=== PATIENT | male | born 1935 | race Caucasian/White ===

== ENCOUNTER 2020-03-25 11:24 | Outpatient (REF) | payer MEDICARE, SELFPAY | END 2020-03-25 11:25 | disposition home or self-care (01) | LOC: HO.LAB 11:24 | PROVIDERS: PCP Internal Medicine Geriatric Medicine; Visit Provider Internal Medicine | DX: Z20.828 Contact with and (suspected) exposure to other viral communicable diseases (principal) | CPT/HCPCS: C9803; U0003 ==

== ENCOUNTER 2020-03-25 11:50 | Outpatient (REF) | payer MEDICARE, SELFPAY ==
[2020-03-26 10:52] LABS: Free Prostate Spec Ag 4.8 ng/mL; Percent Free Prostate Spec Ag NOT CALCULATED % (calc) (>25); Prostate Specific Ag Total 13.3 ng/mL (< OR = 4.0)
== END 2020-03-25 11:51 | disposition home or self-care (01) ==
LOC: HO.LAB 11:50
PROVIDERS: Visit Provider Urology
DX: R97.20 Elevated prostate specific antigen [PSA] (principal); Z12.5 Encounter for screening for malignant neoplasm of prostate
CPT/HCPCS: 84153

== ENCOUNTER 2020-04-03 14:01 | Inpatient (IN) | payer MEDICARE, SELFPAY ==
[2020-04-03 14:12] VITALS: BP 138/96; PULSE 110; PULSE 116; RESP 18; TEMP 38.4; O2SAT 97; BMI 22.0
--- NOTE | 2020-04-03 14:19 | ED_ITS ---
HPI - Weakness General Chief complaint: Upper Respiratory Symptoms Stated complaint: flu like +covid last week Time Seen by Provider: 04/03/20 14:19 Source: patient, family (called daughter who gave most of the information) and EMS Mode of arrival: EMS Limitations: altered mental status History of Present Illness MD Complaint: generalized weakness Onset (ago): week(s) (10 days) Duration: progressively worsening Location: generalized Severity: moderate Quality: dull Relieving factors: none Exacerbating factors: movement Context: recent illness (dx with COVID 03/25 whole family has it - worsening weakness cannot take care of himself at home) Associated symptoms: confusion, fever/chills, loss of appetite and myalgias Related Data Home Medications Medication Instructions Recorded Confirmed allopurinol 300 mg PO DAILY 04/03/20 04/03/20 aspirin 81 mg PO DAILY 04/03/20 04/03/20 atorvastatin 40 mg PO BEDTIME 04/03/20 04/03/20 hydrochlorothiazide 12.5 mg PO DAILY 04/03/20 04/03/20 levothyroxine 50 mcg PO DAILY 04/03/20 04/03/20 loratadine 10 mg PO DAILY 04/03/20 04/03/20 metoprolol tartrate 25 mg PO BID 04/03/20 04/03/20 nortriptyline 10 mg PO DAILY 04/03/20 04/03/20 tamsulosin 0.4 mg PO BEDTIME 04/03/20 04/03/20 trazodone 25 mg PO BEDTIME 04/03/20 04/03/20 Allergies Allergy/AdvReac Type Severity Reaction Status Date / Time No Known Allergies Allergy Mild NONE Unverified 02/06/20 17:04 Review of Systems Review of Systems: ROS unable to be obtained due to altered mental status REPLACED BY [facility] Past Medical History Attestation statement: The following information was validated with the patient. Medical History (Updated 04/03/20 @ 16:22 by Alexus Alejo DO) BPH (benign prostatic hyperplasia) Coronary artery disease CVA (cerebral vascular accident) Dementia Diabetes Gout HTN (hypertension) Hypothyroidism Surgical History (Updated 04/03/20 @ 14:24 by Alexus Alejo DO) Hx of CABG Social History Social History (Updated 04/03/20 @ 14:21 by Alexus Alejo DO) Smoking Status: Never smoker Use of substances other than those prescribed or required for medical reasons: No Advance Directives: No Advance Directives Information Provided: Yes Physical Exam Vital Signs: Vital Signs: Last Vital Signs Temp 101.2 F H 04/03/20 14:12 Pulse 116 H 04/03/20 14:12 Resp 18 04/03/20 14:12 Pulse Ox 97 04/03/20 14:12 Body Mass Index 22.0 Appearance: Alert. Oriented X2. No acute distress. Eyes: Pupils equal, round and reactive to light. ENT: Pharynx moderate dry MMM Neck: Normal inspection. Neck supple. CVS: Normal heart rate and rhythm. Pulses normal. Respiratory: No respiratory distress. Breath sounds decreased Abdomen: Soft and nontender. Skin: Skin warm and dry. Normal skin color. Normal skin turgor. Extremities: No lower extremity edema. No calf ttp Neuro: Oriented X 2. No motor deficit. No sensory deficit. Course Course Course Narrative: will need hydration, observation, repeat labs and admission given FTT and weakness due to COVID MDM - Weakness MDM Narrative Medical decision making narrative: 85 yo male with hx of dementia, HTN, arthritis here with COVID dx 03/25 but progressively worsening with persistent fevers the patient cannot take care of himself, he was near syncopal today per donny arredondo - will need labs, CXR, IVF, cultures, dispo per results and findings. Lab Data Result diagrams: 04/03/20 15:05 04/03/20 15:05 Labs: Lab Results 04/03/20 04/03/20 04/03/20 Range/Units 15:05 15:05 15:05 WBC 6.9 (4.8-10.8) X10*3/uL RBC 4.60 (4.60-5.80) X10*6/uL Hgb 14.1 (14.0-18.0) g/dl Hct 44.0 (42-52) % MCV 95.7 (80-98) fL MCH 30.7 (27.0-33.0) pg MCHC 32.0 (31.0-36.0) g/dl RDW 14.1 (11.0-16.0) % Plt Count 172 (160-400) X10*3/uL MPV 11.7 (9.4-12.4) fL Immature Gran % (Auto) 0.4 (0.0-0.4) % Neut % (Auto) 81.8 H (45-73) % Lymph % (Auto) 10.0 L (20-40) % [place] % (Auto) 7.4 (2-11) % Eos % (Auto) 0.3 (0-4) % Baso % (Auto) 0.1 (0-2) % Lymph # (Auto) 0.7 L (1.2-4.9) X10*3/uL [place] # (Auto) 0.5 (0.1-1.2) X10*3/uL Eos # (Auto) 0.0 (0.0-0.4) X10*3/uL Baso # (Auto) 0.0 (0.0-0.2) X10*3/uL Abs Immat Gran (auto) 0.03 (0.00-0.03) X10*3/uL Absolute Neuts (auto) 5.7 (2.0-8.3) X10*3/uL Absolute Nucleated RBC 0.000 (0.0-0.012) X10*3/uL Nucleated RBC % (auto) 0.0 (0.0-0.2) /100WBC Smear Tech's Comments VERIFIED PT 12.8 (10.8-13.0) SEC INR 1.1 (0.9-1.1) APTT 32.4 (24.1-38.0) SEC Sodium 139 (135-145) mmol/L Potassium 3.9 (3.3-5.1) mmol/l Chloride 98 (96-108) mmol/L Carbon Dioxide 29 (22-29) mmol/L Anion Gap 16 (12-20) BUN 24 H (9-16) mg/dL Creatinine 1.54 H (0.5-1.4) mg/dL Estim Creat Clear Calc 30.3 Estimated GFR 43 Random Glucose 163 H (60-115) mg/dL Lactic Acid (0.5-2.0) mmol/L Calcium 9.3 (8.4-10.2) mg/dL Magnesium 1.5 L (1.6-2.6) mg/dL Ferritin 1028 H (20-250) ng/mL Total Bilirubin 0.7 (0.0-1.0) mg/dL Direct Bilirubin 0.3 (0.0-0.5) mg/dL AST 63 H (5-37) U/L ALT 36 (0-40) U/L Alkaline Phosphatase 89 (39-117) U/L Lactate Dehydrogenase 228 (118-273) U/L Total Creatine Kinase 62 (38-174) U/L Troponin I High Sens (<3.5-35.0) ng/L B-Natriuretic Peptide (<100) pg/mL Total Protein 7.1 (6.5-8.0) g/dL Albumin 3.7 (3.5-5.0) g/dL Lipase 56 (8-78) U/L 04/03/20 04/03/20 Range/Units 15:05 15:05 WBC (4.8-10.8) X10*3/uL RBC (4.60-5.80) X10*6/uL Hgb (14.0-18.0) g/dl Hct (42-52) % MCV (80-98) fL MCH (27.0-33.0) pg MCHC (31.0-36.0) g/dl RDW (11.0-16.0) % Plt Count (160-400) X10*3/uL MPV (9.4-12.4) fL Immature Gran % (Auto) (0.0-0.4) % Neut % (Auto) (45-73) % Lymph % (Auto) (20-40) % [place] % (Auto) (2-11) % Eos % (Auto) (0-4) % Baso % (Auto) (0-2) % Lymph # (Auto) (1.2-4.9) X10*3/uL [place] # (Auto) (0.1-1.2) X10*3/uL Eos # (Auto) (0.0-0.4) X10*3/uL Baso # (Auto) (0.0-0.2) X10*3/uL Abs Immat Gran (auto) (0.00-0.03) X10*3/uL Absolute Neuts (auto) (2.0-8.3) X10*3/uL Absolute Nucleated RBC (0.0-0.012) X10*3/uL Nucleated RBC % (auto) (0.0-0.2) /100WBC Smear Tech's Comments PT (10.8-13.0) SEC INR (0.9-1.1) APTT (24.1-38.0) SEC Sodium (135-145) mmol/L Potassium (3.3-5.1) mmol/l Chloride (96-108) mmol/L Carbon Dioxide (22-29) mmol/L Anion Gap (12-20) BUN (9-16) mg/dL Creatinine (0.5-1.4) mg/dL Estim Creat Clear Calc Estimated GFR Random Glucose (60-115) mg/dL Lactic Acid 3.1 H* (0.5-2.0) mmol/L Calcium (8.4-10.2) mg/dL Magnesium (1.6-2.6) mg/dL Ferritin (20-250) ng/mL Total Bilirubin (0.0-1.0) mg/dL Direct Bilirubin (0.0-0.5) mg/dL AST (5-37) U/L ALT (0-40) U/L Alkaline Phosphatase (39-117) U/L Lactate Dehydrogenase (118-273) U/L Total Creatine Kinase (38-174) U/L Troponin I High Sens 23.3 (<3.5-35.0) ng/L B-Natriuretic Peptide 27 (<100) pg/mL Total Protein (6.5-8.0) g/dL Albumin (3.5-5.0) g/dL Lipase (8-78) U/L Discharge Plan Discharge Clinical Impression: COVID-19, Acidosis, lactic, Fever, Adult failure to thrive, STAR (acute kidney injury) Patient Disposition: Admitted As Inpatient Prescriptions: No Action atorvastatin 40 mg Tablet 40 mg PO BEDTIME RF: 0 trazodone 50 mg Tablet 25 mg PO BEDTIME RF: 0 tamsulosin 0.4 mg Capsule 0.4 mg PO BEDTIME RF: 0 levothyroxine 50 mcg Tablet 50 mcg PO DAILY RF: 0 nortriptyline 10 mg Capsule 10 mg PO DAILY RF: 0 allopurinol 300 mg Tablet 300 mg PO DAILY RF: 0 aspirin 81 mg Tablet 81 mg PO DAILY RF: 0 loratadine 10 mg Tablet 10 mg PO DAILY RF: 0 metoprolol tartrate 25 mg Tablet 25 mg PO BID RF: 0 hydrochlorothiazide 12.5 mg Tablet 12.5 mg PO DAILY RF: 0
--- NOTE | 2020-04-03 14:25 | ECG_ITS ---
Test Reason : COVID Blood Pressure : / mmHG Vent. Rate : 063 BPM Atrial Rate : 063 BPM P-R Int : 134 ms QRS Dur : 074 ms QT Int : 392 ms P-R-T Axes : 056 082 093 degrees QTc Int : 401 ms Normal sinus rhythm with Sinus Arrhythmia Nonspecific ST abnormality Inferior leads Abnormal ECG When compared with ECG of 03-JUL-2017 13:24, Sinus Arrhythmia is new Nonspecific ST abnormality is new Referred By: Alexus Alejo Electronically Signed By:KY CHARLES MD
--- NOTE | 2020-04-03 14:25 | XR_ITS ---
EXAMINATION: XR CHEST CLINICAL INFORMATION: Weakness COMPARISON: None TECHNIQUE: Frontal view of the chest was obtained. FINDINGS: Cardiac leads overlie the chest. Median sternotomy wires appear intact. The lungs are well expanded. Minimal markings are seen at both lung bases favoring atelectasis. No dense consolidation. No pleural effusion or pneumothorax. The cardiomediastinal silhouette is normal in size, with a calcified aorta. XR/XR chest 1V IMPRESSION: Bibasilar markings favor atelectasis. No consolidation.
[2020-04-03] MEDS: 0.9 % Sodium Chloride 500 ML IV (15:01)
[2020-04-03 15:28] LABS: Basophils Percent Auto 0.1 % (0-2); Eosinophils Percent Auto 0.3 % (0-4); Hemoglobin 14.1 g/dl (14.0-18.0); Imm Gran Abs Auto 0.03 X10*3/uL (0.00-0.03); Imm Gran Pct Auto 0.4 % (0.0-0.4); Lymphocytes Absolute Auto 0.7 X10*3/uL (1.2-4.9); MANUAL DIFF FLAG SCAN; Mean Corpuscular Hemoglobin 30.7 pg (27.0-33.0); Mean Corpuscular Volume 95.7 fL (80-98); Mean Platelet Volume 11.7 fL (9.4-12.4); Monocytes Absolute Auto 0.5 X10*3/uL (0.1-1.2); Monocytes Percent Auto 7.4 % (2-11); Neutrophils Absolute Auto 5.7 X10*3/uL (2.0-8.3); Neutrophils Percent Auto 81.8 % (45-73); Platelet Count 172 X10*3/uL (160-400); Red Cell Distribution Width 14.1 % (11.0-16.0); SCAN SMEAR FLAG 1; White Blood Count 6.9 X10*3/uL (4.8-10.8)
[2020-04-03 15:36] LABS: INTERNATIONAL NORM RATIO 1.1 (0.9-1.1); Prothrombin Time 12.8 SEC (10.8-13.0)
[2020-04-03 15:38] LABS: Partial Thromboplastin Time 32.4 SEC (24.1-38.0)
[2020-04-03 15:54] LABS: Alanine Aminotransferase 36 U/L (0-40); Albumin Level 3.7 g/dL (3.5-5.0); Alkaline Phosphatase 89 U/L (39-117); Anion Gap 16 (12-20); Aspartate Amino Transferase 63 U/L (5-37); Bilirubin Direct 0.3 mg/dL (0.0-0.5); Bilirubin Total 0.7 mg/dL (0.0-1.0); Blood Urea Nitrogen 24 mg/dL (9-16); Calcium 9.3 mg/dL (8.4-10.2); Carbon Dioxide 29 mmol/L (22-29); Chloride 98 mmol/L (96-108); Creatinine Clr Calc Pharmacy 30.3; Estimated Glomerular Filt Rate 43; Glucose Random 163 mg/dL (60-115); Lactate Dehydrogenase 228 U/L (118-273); Lipase 56 U/L (8-78); Magnesium 1.5 mg/dL (1.6-2.6); Potassium 3.9 mmol/l (3.3-5.1); Sodium 139 mmol/L (135-145); Total Protein 7.1 g/dL (6.5-8.0)
[2020-04-03 15:57] LABS: B Type Natriuretic Peptide 27 pg/mL (<100); Troponin-I High Sensitivity 23.3 ng/L (<3.5-35.0)
[2020-04-03 15:58] LABS: Lactic Acid 3.1 mmol/L (0.5-2.0); SLIDE REVIEW VERIFIED
[2020-04-03 16:15] LABS: Ferritin 1028 ng/mL (20-250)
[2020-04-03] MEDS: Acetaminophen Oral Liquid 650 MG/20.3 ML SOLUTION PO (16:21)
[2020-04-03] MEDS: ondansetron HCL 4 MG/2 ML VIAL IVPUSH (16:21)
[2020-04-03] MEDS: Magnesium Sulfate/H2O 2 GM/50 ML PIGGYBACK IV (16:21)
[2020-04-03] MEDS: cefTRIAXone sodium 1 GM in 0.9 % Sodium Chloride 50 ML IV (16:31)
--- NOTE | 2020-04-03 16:48 | P.EN_ITS ---
Event Note Date of Service: 04/04/20 Event Note: 85-year-old gentleman with past medical history of hypothyroidism hyperlipidemia BPH presented to [facility] due to persistent fevers decreased by mouth intake patient recently diagnosed to have COVID on 03/25 on examination patient is awake alert frail appearing withl decrease skin turgor admit diagnosis COVID 19 infection, lactic acidosis viral sepsis and adult failure to thrive agree with treatment plan as per APC
--- NOTE | 2020-04-03 17:00 | PM.IMHP ---
History of Present Illness Date of Service: 04/03/20 Chief Complaint: near-syncope, fever this is an 85-year-old Tongan-speaking male who was sent in by his daughter due to episode of near syncope earlier today. He was diagnosed with coronavirus on March 25. Since that time he has had decreased p.o. intake. He continues to have fevers. The patient himself was unable to provide any significant history. In the ED he was noted to be tachycardic and febrile with a temperature of 101.2 degrees. He was not hypoxic and did not require supplemental oxygen. 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 Review of Systems Review of Systems: Yes Unobtainable due to mental condition (dementia) [facility] Medical History BPH (benign prostatic hyperplasia) Coronary artery disease CVA (cerebral vascular accident) Dementia Diabetes Gout HTN (hypertension) Hypothyroidism Pertinent family history: Unable to obtain due to underlying dementia Surgical History Hx of CABG Social History Smoking Status: Never smoker Use of substances other than those prescribed or required for medical reasons: No Advance Directives: No Advance Directives Information Provided: Yes Meds Allergies Allergy/AdvReac Type Severity Reaction Status Date / Time No Known Allergies Allergy Mild NONE Unverified 02/06/20 17:04 Home Medications Medication Instructions Recorded Confirmed Type allopurinol 300 mg PO DAILY 04/03/20 04/03/20 History aspirin 81 mg PO DAILY 04/03/20 04/03/20 History atorvastatin 40 mg PO BEDTIME 04/03/20 04/03/20 History hydrochlorothiazide 12.5 mg PO DAILY 04/03/20 04/03/20 History levothyroxine 50 mcg PO DAILY 04/03/20 04/03/20 History loratadine 10 mg PO DAILY 04/03/20 04/03/20 History metoprolol tartrate 25 mg PO BID 04/03/20 04/03/20 History nortriptyline 10 mg PO DAILY 04/03/20 04/03/20 History tamsulosin 0.4 mg PO BEDTIME 04/03/20 04/03/20 History trazodone 25 mg PO BEDTIME 04/03/20 04/03/20 History Physical Exam Vital Signs and Narrative: Vital Signs: Last Vital Signs Temp 101.2 F H 04/03/20 14:12 Pulse 116 H 04/03/20 14:12 Resp 18 04/03/20 14:12 Pulse Ox 97 04/03/20 14:12 Body Mass Index 22.0 Const: General: alert and awake Nutritional Appearance: cachectic Orientation/consciousness: oriented to person HENMT: Head: Yes normocephalic and Yes atraumatic Eyes: Sclerae: sclerae normal Chest: Chest palpation & inspection: normal inspection of the chest Resp: Effort & Inspection: normal respiratory effort and no respiratory distress Cardio: Rate: regular rate Rhythm: regular rhythm GI: Palpation (GI): Soft to palpation and nontender Skin: General skin exam: no rashes or lesions noted Neuro: General: oriented to person Cranial nerves: Yes CN's II-XII intact bilaterally and Yes Bilaterally intact EOM present Extrem: General: Yes normal to inspection Results Labs CBC and Chem 7: 04/03/20 15:05 04/03/20 15:05 Labs: Laboratory Results - last 24 hr 04/03/20 04/03/20 04/03/20 15:05 15:05 15:05 MCV 95.7 MCH 30.7 MCHC 32.0 RDW 14.1 Plt Count 172 MPV 11.7 Immature Gran % (Auto) 0.4 Neut % (Auto) 81.8 H Lymph % (Auto) 10.0 L [place] % (Auto) 7.4 Eos % (Auto) 0.3 Baso % (Auto) 0.1 Lymph # (Auto) 0.7 L [place] # (Auto) 0.5 Eos # (Auto) 0.0 Baso # (Auto) 0.0 Abs Immat Gran (auto) 0.03 Absolute Neuts (auto) 5.7 Absolute Nucleated RBC 0.000 Nucleated RBC % (auto) 0.0 Smear Tech's Comments VERIFIED PT 12.8 INR 1.1 APTT 32.4 Anion Gap 16 Estim Creat Clear Calc 30.3 Estimated GFR 43 Random Glucose 163 H Lactic Acid Calcium 9.3 Magnesium 1.5 L Ferritin 1028 H Total Bilirubin 0.7 Direct Bilirubin 0.3 AST 63 H ALT 36 Alkaline Phosphatase 89 Lactate Dehydrogenase 228 Total Creatine Kinase 62 Troponin I High Sens B-Natriuretic Peptide Total Protein 7.1 Albumin 3.7 Lipase 56 04/03/20 04/03/20 15:05 15:05 MCV MCH MCHC RDW Plt Count MPV Immature Gran % (Auto) Neut % (Auto) Lymph % (Auto) [place] % (Auto) Eos % (Auto) Baso % (Auto) Lymph # (Auto) [place] # (Auto) Eos # (Auto) Baso # (Auto) Abs Immat Gran (auto) Absolute Neuts (auto) Absolute Nucleated RBC Nucleated RBC % (auto) Smear Tech's Comments PT INR APTT Anion Gap Estim Creat Clear Calc Estimated GFR Random Glucose Lactic Acid 3.1 H* Calcium Magnesium Ferritin Total Bilirubin Direct Bilirubin AST ALT Alkaline Phosphatase Lactate Dehydrogenase Total Creatine Kinase Troponin I High Sens 23.3 B-Natriuretic Peptide 27 Total Protein Albumin Lipase Imaging Radiologist's Impressions: Impressions Chest X-Ray 04/03/20 14:25 IMPRESSION: Bibasilar markings favor atelectasis. No consolidation. Assessment and Plan (1) COVID-19: Status: Acute (2) Acidosis, lactic: Status: Acute this is a an 85-year-old male with history of CAD, hypertension, dyslipidemia, hypothyroidism, remote history of intracranial hemorrhage, diagnosed with COVID-19 on 03/25 who presents to ED with near-syncope and decreased p.o. intake viral sepsis meets criteria with fever, tachycardia related to coronavirus focused exam completed blood cultures pending no indication for antibiotics COVID-19 chest x-ray negative for pneumonia not requiring supplemental oxygen supportive care elevated lactic acid likely related to dehydration gentle IV fluid CKD4 slight increase from baseline creatinine 1.3-1.54 hold hydrochlorothiazide IV fluid follow renal function hypo magnesemia replaced in the ED follow levels thyroid disease continue Synthroid hypertension who continue metoprolol , hold hydrochlorothiazide BPH continue tamsulosin dyslipidemia continue statin DVT prophylaxis- Loveno x code status- full code this case was discussed with
[2020-04-03 17:20] LABS: Reflex Lactate? Lactic Acid Added
[2020-04-03 18:18] LABS: ~Lactic Acid-LAB USE ONLY 1.1 mmol/L (0.5-2.0)
[2020-04-03 21:05] VITALS: BP 117/57; PULSE 64; RESP 17; TEMP 36.7; O2SAT 98
[2020-04-03] MEDS: Enoxaparin Sodium 40 MG/0.4 ML SYRINGE SUBCUT (21:15)
[2020-04-03] MEDS: Dextrose 5 % and 0.9 % NaCl 1,000 ML 50 ML IVCONT (21:17)
[2020-04-03 22:31] VITALS: BP 179/71; PULSE 79; PULSE 83; RESP 18; TEMP 37.7; O2SAT 97
[2020-04-03] MEDS: Atorvastatin Calcium 40 MG TABLET PO (22:31)
[2020-04-03] MEDS: Tamsulosin HCL 0.4 MG CAPSULE PO (22:31)
[2020-04-03] MEDS: Metoprolol Tartrate 25 MG TABLET PO (22:31)
[2020-04-03 23:16] LABS: Glucose, Whole Blood 113 mg/dL (60-115)
[2020-04-03 23:50] VITALS: BP 135/63; PULSE 67; RESP 18; TEMP 37.2; O2SAT 98
[2020-04-03 23:55] VITALS: BP 135/63; PULSE 67; RESP 18; TEMP 37.2; O2SAT 98
[2020-04-04] MEDS: 0.9 % Sodium Chloride Flush 3 ML SYRINGE IVFLUSH ×2 (00:45→09:44)
[2020-04-04 04:00] VITALS: BP 119/56; PULSE 67; RESP 18; TEMP 37.8; O2SAT 97
[2020-04-04] MEDS: Acetaminophen 325 MG TABLET 650 MG PO (04:30)
[2020-04-04 05:31] LABS: MANUAL DIFF FLAG NO
[2020-04-04 05:32] VITALS: TEMP 37.1
[2020-04-04] MEDS: Levothyroxine Sodium 50 MCG TABLET PO (05:34)
[2020-04-04 05:37] LABS: Basophils Percent Auto 0.2 % (0-2); Eosinophils Percent Auto 0.4 % (0-4); Hematocrit 36.9 % (42-52); Hemoglobin 11.9 g/dl (14.0-18.0); Imm Gran Abs Auto 0.02 X10*3/uL (0.00-0.03); Imm Gran Pct Auto 0.4 % (0.0-0.4); Lymphocytes Percent Auto 18.9 % (20-40); Mean Corpuscular HGB Conc 32.2 g/dl (31.0-36.0); Mean Corpuscular Hemoglobin 30.4 pg (27.0-33.0); Mean Corpuscular Volume 94.4 fL (80-98); Mean Platelet Volume 11.2 fL (9.4-12.4); Monocytes Absolute Auto 0.5 X10*3/uL (0.1-1.2); Monocytes Percent Auto 10.3 % (2-11); Neutrophils Absolute Auto 3.7 X10*3/uL (2.0-8.3); Neutrophils Percent Auto 69.8 % (45-73); Platelet Count 163 X10*3/uL (160-400); Red Blood Count 3.91 X10*6/uL (4.60-5.80); Red Cell Distribution Width 13.9 % (11.0-16.0); White Blood Count 5.2 X10*3/uL (4.8-10.8)
[2020-04-04 06:02] LABS: Magnesium 2.1 mg/dL (1.6-2.6)
[2020-04-04 06:09] LABS: Anion Gap 10 (12-20); Blood Urea Nitrogen 24 mg/dL (9-16); Calcium 8.4 mg/dL (8.4-10.2); Carbon Dioxide 29 mmol/L (22-29); Chloride 102 mmol/L (96-108); Creatinine Clr Calc Pharmacy 39.2; Estimated Glomerular Filt Rate 58; Glucose Random 136 mg/dL (60-115); Potassium 3.9 mmol/l (3.3-5.1); Sodium 137 mmol/L (135-145)
[2020-04-04 08:00] VITALS: BP 126/59; PULSE 69; RESP 18; TEMP 36.3; O2SAT 97
[2020-04-04 08:09] LABS: Glucose, Whole Blood 126 mg/dL (60-115)
[2020-04-04 09:44] VITALS: BP 126/59; PULSE 64
[2020-04-04] MEDS: Aspirin 81 MG TAB.CHEW PO (09:44)
[2020-04-04 11:35] VITALS: BP 117/58; PULSE 62; RESP 18; TEMP 36.6; O2SAT 97
[2020-04-04 12:10] LABS: Glucose, Whole Blood 208 mg/dL (60-115)
--- NOTE | 2020-04-04 16:15 | PM.DS ---
DS: Providers Provider Date of admission: 04/03/20 16:46 Primary care physician: Unknown Physician DS: Diagnosis Discharge Diagnosis (1) COVID-19: Status: Acute (2) Acidosis, lactic: Status: Acute DS: Medications Discharge Medications Home Medications: Home Medications Medication Instructions Recorded Confirmed allopurinol 300 mg PO DAILY 04/03/20 04/03/20 aspirin 81 mg PO DAILY 04/03/20 04/03/20 levothyroxine 50 mcg PO DAILY 04/03/20 04/03/20 loratadine 10 mg PO DAILY 04/03/20 04/03/20 metoprolol tartrate 25 mg PO BID 04/03/20 04/03/20 nortriptyline 10 mg PO DAILY 04/03/20 04/03/20 tamsulosin 0.4 mg PO BEDTIME 04/03/20 04/03/20 trazodone 25 mg PO BEDTIME 04/03/20 04/03/20 DS: Summary Hospital Course Hospital Course: Chief Complaint: near-syncope, fever this is an 85-year-old Latvian-speaking male who was sent in by his daughter due to episode of near syncope earlier today. He was diagnosed with coronavirus on March 25. Since that time he has had decreased p.o. intake. He continues to have fevers. The patient himself was unable to provide any significant history. In the ED he was noted to be tachycardic and febrile with a temperature of 101.2 degrees. He was not hypoxic and did not require supplemental oxygen. 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 hospital course this is a an 85-year-old male with history of CAD, hypertension, dyslipidemia, hypothyroidism, remote history of intracranial hemorrhage, diagnosed with COVID-19 on 03/25 who presents to ED with near-syncope and decreased p.o. intake viral sepsis met criteria of sepsis with fever, tachycardia related to coronavirus blood cultures came back negative, symptoms of sepsis have resolved, no indication for antibiotics since patient hemodynamically stable he is being discharged home COVID-19 chest x-ray negative for pneumonia, not requiring supplemental oxygen recommend isolation at home elevated lactic acid likely related to dehydration resolved with IV hydration CKD4 slight increase from baseline creatinine 1.3-1.54, improved with IV hydration, blood pressure is stable will discontinue hydrochlorothiazide hypo magnesemia replaced thyroid disease continue Synthroid hypertension continue metoprolol and stop using hydrochlorothiazide BPH continue tamsulosin dyslipidemia stop Lipitor since noted to have low LDL in last few lipid profile studies Time Spent with Patient Time attestation: Total time spent providing and/or coordinating discharge services: Physical Exam Vital Signs: Vital Signs: Last Vital Signs Temp 97.9 F 04/04/20 11:35 Pulse 62 04/04/20 11:35 Resp 18 04/04/20 11:35 BP 117/58 L 04/04/20 11:35 Pulse Ox 97 04/04/20 11:35 Body Mass Index 22.0 General patient resting comfortably in no acute distress. Neck is supple no JVD. CVS regular rate rhythm, Respiratory lungs clear to auscultation, no respiratory distress, no wheeze, no rhonchi. Gastrointestinal abdomen soft, nontender, bowel sounds audible, no no guarding , no rigidity. Extremities no clubbing cyanosis or edema. Neuro nonfocal patient moving all 4 extremity speech clear. Skin no rash DS: Data Data Completed and Pending Labs on day of discharge: 04/03/20 14:24 ondansetron HCL [Zofran] 4 mg IVPUSH ONCE ONE 04/03/20 14:25 ECG 12 lead EKG Stat EKG Documentation DIRECTED XR chest 1V Stat Acetaminophen Oral Liquid [Tylenol Oral Liquid] 650 mg PO ONCE ONE 04/03/20 14:29 cefTRIAXone sodium [Rocephin] 1 gm 0.9 % Sodium Chloride [Ns] 50 ml IV ONCE 04/03/20 14:30 0.9 % Sodium Chloride [Ns] 500 ml IV 500 mls/hr 04/03/20 15:05 B Type Natriuretic Peptide Stat Basic Metabolic Panel Stat Complete Blood Count Auto Diff Stat Creatine Kinase Total Stat Ferritin Stat Lactate Dehydrogenase Stat Lactic Acid Stat Lipase Stat Liver Panel Stat Magnesium Stat Partial Thromboplastin Time Stat Prothrombin Time INR Stat SLIDE REVIEW Stat Troponin-I High Sensitivity Stat 04/03/20 15:58 Magnesium Sulfate/H2O 2 gm in 50 ml IV ONCE 04/03/20 16:00 Consult Rx Perform Med Rec 1 each MISCELLANE ONCE PRN 04/03/20 16:06 cefTRIAXone sodium [Rocephin] 1 gm .ROUTE .STK-MED ONE 04/03/20 16:36 Transfer Order Routine 04/03/20 16:37 Code Status Routine 04/03/20 17:49 ~Lactic Acid-LAB USE ONLY Stat 04/03/20 18:22 Acetaminophen [Tylenol] 650 mg PO Q6H PRN Dextrose 5 % and 0.9 % NaCl [D5ns] 1,000 ml IVCONT 50 mls/hr ondansetron HCL [Zofran] 4 mg IVPUSH Q8H PRN 04/03/20 18:22 Ambulate QSHIFT WHILE AWAKE Cont. Telemetry w/Vital Sign limit Q4HR IV insert/maintain Q4HR Intake and Output QSHIFTE Oxygen administration Nasal Cannula 1 lpm Pulse Oximetry Q4HR Vital Signs Q4HR 04/03/20 20:00 Enoxaparin Sodium [Lovenox] 40 mg SUBCUT Q24H 04/03/20 21:00 Atorvastatin Calcium [Lipitor] 40 mg PO BEDTIME Metoprolol Tartrate [Lopressor] 25 mg PO BID Tamsulosin HCL [Flomax] 0.4 mg PO BEDTIME traZODone HCL [Desyrel] 25 mg PO BEDTIME 04/03/20 22:33 Glucose, Whole Blood Routine 04/04/20 00:00 0.9 % Sodium Chloride Flush [NS Flush] 3 ml IVFLUSH QSHIFT 04/04/20 05:23 Basic Metabolic Panel DAILY@0600 Complete Blood Count Auto Diff DAILY@0600 Magnesium Routine 04/04/20 06:30 Levothyroxine Sodium [Synthroid] 50 mcg PO DAILY@0630 04/04/20 08:06 Glucose, Whole Blood Routine 04/04/20 09:00 Aspirin 81 mg PO DAILY 04/04/20 11:34 Glucose, Whole Blood Routine Laboratory Last Values WBC 5.2 X10*3/uL (4.8-10.8) 04/04/20 05:23 RBC 3.91 X10*6/uL (4.60-5.80) L 04/04/20 05:23 Hgb 11.9 g/dl (14.0-18.0) L 04/04/20 05:23 Hct 36.9 % (42-52) L 04/04/20 05:23 MCV 94.4 fL (80-98) 04/04/20 05:23 MCH 30.4 pg (27.0-33.0) 04/04/20 05:23 MCHC 32.2 g/dl (31.0-36.0) 04/04/20 05:23 RDW 13.9 % (11.0-16.0) 04/04/20 05:23 Plt Count 163 X10*3/uL (160-400) 04/04/20 05:23 MPV 11.2 fL (9.4-12.4) 04/04/20 05:23 Immature Gran % (Auto) 0.4 % (0.0-0.4) 04/04/20 05:23 Neut % (Auto) 69.8 % (45-73) 04/04/20 05:23 Lymph % (Auto) 18.9 % (20-40) L 04/04/20 05:23 [place] % (Auto) 10.3 % (2-11) 04/04/20 05:23 Eos % (Auto) 0.4 % (0-4) 04/04/20 05:23 Baso % (Auto) 0.2 % (0-2) 04/04/20 05:23 Lymph # (Auto) 1.0 X10*3/uL (1.2-4.9) L 04/04/20 05:23 [place] # (Auto) 0.5 X10*3/uL (0.1-1.2) 04/04/20 05:23 Eos # (Auto) 0.0 X10*3/uL (0.0-0.4) 04/04/20 05:23 Baso # (Auto) 0.0 X10*3/uL (0.0-0.2) 04/04/20 05:23 Abs Immat Gran (auto) 0.02 X10*3/uL (0.00-0.03) 04/04/20 05:23 Absolute Neuts (auto) 3.7 X10*3/uL (2.0-8.3) 04/04/20 05:23 Absolute Nucleated RBC 0.000 X10*3/uL (0.0-0.012) 04/04/20 05:23 Nucleated RBC % (auto) 0.0 /100WBC (0.0-0.2) 04/04/20 05:23 Smear Tech's Comments VERIFIED 04/03/20 15:05 PT 12.8 SEC (10.8-13.0) 04/03/20 15:05 INR 1.1 (0.9-1.1) 04/03/20 15:05 APTT 32.4 SEC (24.1-38.0) 04/03/20 15:05 Sodium 137 mmol/L (135-145) 04/04/20 05:23 Potassium 3.9 mmol/l (3.3-5.1) 04/04/20 05:23 Chloride 102 mmol/L (96-108) 04/04/20 05:23 Carbon Dioxide 29 mmol/L (22-29) 04/04/20 05:23 Anion Gap 10 (12-20) L 04/04/20 05:23 BUN 24 mg/dL (9-16) H 04/04/20 05:23 Creatinine 1.19 mg/dL (0.5-1.4) 04/04/20 05:23 Estim Creat Clear Calc 39.2 04/04/20 05:23 Estimated GFR 58 04/04/20 05:23 POC Glucose 208 mg/dL (60-115) H 04/04/20 11:34 Random Glucose 136 mg/dL (60-115) H 04/04/20 05:23 Lactic Acid 3.1 mmol/L (0.5-2.0) H* 04/03/20 15:05 Lactic Acid Fup @ 2Hr 1.1 mmol/L (0.5-2.0) 04/03/20 17:49 Calcium 8.4 mg/dL (8.4-10.2) D 04/04/20 05:23 Magnesium 2.1 mg/dL (1.6-2.6) 04/04/20 05:23 Ferritin 1028 ng/mL (20-250) H 04/03/20 15:05 Total Bilirubin 0.7 mg/dL (0.0-1.0) 04/03/20 15:05 Direct Bilirubin 0.3 mg/dL (0.0-0.5) 04/03/20 15:05 AST 63 U/L (5-37) H 04/03/20 15:05 ALT 36 U/L (0-40) 04/03/20 15:05 Alkaline Phosphatase 89 U/L (39-117) 04/03/20 15:05 Lactate Dehydrogenase 228 U/L (118-273) 04/03/20 15:05 Total Creatine Kinase 62 U/L (38-174) 04/03/20 15:05 Troponin I High Sens 23.3 ng/L (<3.5-35.0) 04/03/20 15:05 B-Natriuretic Peptide 27 pg/mL (<100) 04/03/20 15:05 Total Protein 7.1 g/dL (6.5-8.0) 04/03/20 15:05 Albumin 3.7 g/dL (3.5-5.0) 04/03/20 15:05 Lipase 56 U/L (8-78) 04/03/20 15:05 Discharge Plan Discharge Patient Disposition: Home, Self-Care Referrals: Physician,Unknown [Primary Care Provider] - Discharge Medications: Continued trazodone 50 mg Tablet 25 mg PO BEDTIME RF: 0 tamsulosin 0.4 mg Capsule 0.4 mg PO BEDTIME RF: 0 levothyroxine 50 mcg Tablet 50 mcg PO DAILY RF: 0 nortriptyline 10 mg Capsule 10 mg PO DAILY RF: 0 allopurinol 300 mg Tablet 300 mg PO DAILY RF: 0 aspirin 81 mg Tablet 81 mg PO DAILY RF: 0 loratadine 10 mg Tablet 10 mg PO DAILY RF: 0 metoprolol tartrate 25 mg Tablet 25 mg PO BID RF: 0 Discontinued atorvastatin 40 mg Tablet 40 mg PO BEDTIME RF: 0 hydrochlorothiazide 12.5 mg Tablet 12.5 mg PO DAILY RF: 0 Discharge Orders: Discharge Order (Routine); Ordered 04/04/20 Ordered By: Kelley Heaton Diet: regular diet Activity on Discharge: As tolerated Discharge Date/Time: 04/04/20 15:28 Visit Report Forms: Patient Portal Discharge page Care Plan Goals: Stop Lipitor and hydrochlorothiazide, rest drink plenty of fluids Health Concerns: Continue medications as prescribed Plan of Treatment: follow-up with primary care physician.
--- NOTE | 2020-04-05 10:35 | MHC.CM.PN ---
Pt discharged on 04/04/20, prior to meeting with CM. CM spoke to pts daughter/PACKAGING SPECIALIST Tonia prior to pts discharge. Pt lives with her and she will be present when pt arrives home. Tonia was informed pts transport would be set up for 1400 hours. pt discharged home with no new services.
== END 2020-04-04 15:28 | disposition home or self-care (01) | DRG 178 ==
LOC: HO.ED 16:22 → HO.IMC 17:24
PROVIDERS: Admitting Provider Hospitalist; Emergency Provider Emergency Medicine; Visit Provider Hospitalist
DX: U07.1 COVID-19 (principal); N18.4 Chronic kidney disease, stage 4 (severe); N40.0 Benign prostatic hyperplasia without lower urinary tract symptoms; M10.9 Gout, unspecified; F03.90 Unspecified dementia, unspecified severity, without behavioral disturbance, psychotic disturbance, mood disturbance, and anxiety; E03.9 Hypothyroidism, unspecified; E78.5 Hyperlipidemia, unspecified; I12.9 Hypertensive chronic kidney disease with stage 1 through stage 4 chronic kidney disease, or unspecified chronic kidney disease; E83.42 Hypomagnesemia; Z86.73 Personal history of transient ischemic attack (TIA), and cerebral infarction without residual deficits; Z79.82 Long term (current) use of aspirin; Z79.890 Hormone replacement therapy; Z79.899 Other long term (current) drug therapy
CPT/HCPCS: 36415; 71045; 80048; 80076; 82550; 82728; 82947; 83605; 83615; 83690; 83735; 83880; 84484; 85025; 85610; 85730; 87040; 93005; 96361; 96365; 96367; 96375; 99285; J0696; J1650; J2405; J3475

== ENCOUNTER 2021-07-01 16:39 | Inpatient (IN) | payer MEDICARE, SELFPAY ==
--- NOTE | ~2021-07-01 | CT_ITS ---
EXAMINATION: CT ABDOMEN AND PELVIS WITHOUT CONTRAST CLINICAL INFORMATION: Projectile vomiting COMPARISON: 07/01/2021 TECHNIQUE: Multidetector volumetric imaging was performed from the superior aspect of the liver through the pubic symphysis. Sagittal and coronal reformatted images were obtained on the technologist's workstation. This CT examination was performed using dose optimization techniques as appropriate, variously including the following: *Automated exposure control *Adjustment of mA and/or kV according to patient size (this includes techniques or standardized protocols for targeted exams where dose is matched to indication/reason for exam; i.e. extremities or head) *Use of iterative reconstruction technique DLP: 659 mGy-cm FINDINGS: Limited assessment in some regions due to motion artifact. LUNG BASES: Dependent opacities noted in the lower lobes, increased from prior. LIVER, GALLBLADDER, AND BILIARY TREE: The liver is normal in size, shape, and attenuation. No focal hepatic lesion or biliary ductal dilatation is present. The gallbladder is unremarkable with no evidence of radiopaque gallstones, gallbladder wall thickening, or obvious pericholecystic inflammatory changes. PANCREAS: Partial fatty atrophy is noted. SPLEEN: Unremarkable. ADRENAL GLANDS: Unremarkable. KIDNEYS AND URETERS: Mildly dilated renal pelvises, similar to prior. There is redemonstration of several scattered calculi throughout both kidneys measuring up to approximately 5 mm in size. No ureteral calculus is seen. Redemonstrated small right renal cyst for which no follow-up is recommended. BLADDER: Partially distended. Multiple layering calcifications noted. Marino catheter is present. GASTROINTESTINAL TRACT: Percutaneous gastrostomy tube is present in the stomach. No convincing evidence of bowel obstruction. No appreciable colonic wall thickening. The appendix is unremarkable. There is nonspecific stranding in the lower pelvis anteriorly, similar to prior. No free fluid or free air is seen. ABDOMINAL WALL: No significant hernia is appreciated. LYMPH NODES: Normal. VASCULAR: There is atherosclerotic calcification along the aorta and iliac arteries. PELVIC VISCERA: The prostate gland is enlarged, measuring approximately 5.4 cm in transverse dimension. OSSEOUS STRUCTURES: Degenerative changes are noted in the spine. Subcutaneous stranding overlying the coccyx may reflect a decubitus ulcer. CT/CT abdomen pelvis wo con IMPRESSION: 1. Limited assessment of some regions due to motion artifact. 2. Dependent bibasilar pulmonary opacities which could reflect atelectasis versus consolidation such as from aspiration in the setting of vomiting. 3. Nonobstructive bowel gas pattern. 4. Distended urinary bladder, with Marino catheter in place. Correlation with catheter function is recommended. Renal pelvises are mildly dilated, which may be reactive in this setting. 5. Multiple bilateral renal calculi. Multiple layering calcifications in the urinary bladder 6. Nonspecific stranding in the lower pelvis anteriorly, similar to prior. 7. Subcutaneous stranding overlying the coccyx may reflect a decubitus ulcer. Fleischner guidelines were followed.
--- NOTE | ~2021-07-01 | XR_ITS ---
EXAMINATION: XR CHEST CLINICAL INFORMATION: Shortness of breath COMPARISON: Chest x-ray 04/03/2020 TECHNIQUE: Frontal portable view of the chest was obtained. 1710 hours FINDINGS: Status post median sternotomy. Heart size is normal. Vascular calcifications of thoracic aorta. No acute abnormality. No pulmonary vascular congestion. The lungs are normally aerated. No pleural effusion or pneumothorax. XR/XR chest 1V IMPRESSION: No acute abnormality of chest.
--- NOTE | ~2021-07-01 | XR_ITS ---
EXAMINATION: XR CHEST CLINICAL INFORMATION: Shortness of breath COMPARISON: July 01, 2021 and April 03, 2020 TECHNIQUE: AP portable view of the chest was obtained. FINDINGS: There is some chronic bibasilar interstitial disease present. There may be some superimposed acute disease present however no definite confluent pneumonitis is appreciated. No pneumothorax or pleural effusion is evident. Heart normal size. No evidence of pulmonary edema. Status post median sternotomy and CABG. XR/XR chest 1V IMPRESSION: Mild prominent bibasilar disease with question some superimposed interstitial disease at the bases versus atelectasis.
--- NOTE | ~2021-07-01 | XR_ITS ---
EXAMINATION: XR CHEST CLINICAL INFORMATION: Shortness of breath. COMPARISON: Chest done on 07/08/2021. TECHNIQUE: Frontal view of the chest was obtained. FINDINGS: Interval improved aeration at both lung bases since the prior study. No new abnormalities. The cardiomediastinal silhouette is within normal limits. Postop changes of sternotomy is noted. No evidence of any pleural effusion or pneumothorax. The visualized upper abdomen is unremarkable. XR/XR chest 1V IMPRESSION: Interval improved aeration at both lung bases without resolution. No new abnormalities.
--- NOTE | ~2021-07-01 | CT_ITS ---
EXAMINATION: CT ABDOMEN AND PELVIS WITHOUT CONTRAST CLINICAL INFORMATION: ? GANGRENE, ABD PAIN, DECUBITUS ULCER NEAR SCROTUM COMPARISON: Ultrasound abdomen 12/24/2015 TECHNIQUE: Multidetector volumetric imaging was performed from the superior aspect of the liver through the pubic symphysis. Sagittal and coronal reformatted images were obtained on the technologist's workstation. This CT examination was performed using dose optimization techniques as appropriate, variously including the following: *Automated exposure control *Adjustment of mA and/or kV according to patient size (this includes techniques or standardized protocols for targeted exams where dose is matched to indication/reason for exam; i.e. extremities or head) *Use of iterative reconstruction technique DLP: 663 mGy-cm FINDINGS: LUNG BASES: The visualized lung bases are unremarkable aside from bibasilar atelectasis. Coronary artery calcifications are present. LIVER, GALLBLADDER, AND BILIARY TREE: The liver is normal in size, shape, and attenuation. No focal hepatic lesion or biliary ductal dilatation is present. The gallbladder is unremarkable with no evidence of radiopaque gallstones, gallbladder wall thickening, or obvious pericholecystic inflammatory changes. PANCREAS: Unremarkable. SPLEEN: Unremarkable. ADRENAL GLANDS: Unremarkable. KIDNEYS AND URETERS: Both kidneys demonstrate pelvocaliectasis with dilatation of the ureters. However, the ureters can be followed to the level of the bladder no obstructing calculi are seen with certainty. Moderately extensive bilateral nephrolithiasis is present. The largest stone on the right is in the lower pole measuring 6 mm. The largest stone on the left is in the upper pole as well measuring 5 mm. BLADDER: Innumerable calculi are seen layering in the bladder. A Marino catheter is in place but the bladder still appears quite distended. Multiple small diverticula are present on the right side of the bladder which contain calculi. GASTROINTESTINAL TRACT: Rectal wall is thickened. No pneumatosis. No evidence of stercoral colitis. The small and large bowel are otherwise unremarkable. A rectal tube is in place. The appendix is unremarkable. Gastrostomy tube is in good position. ABDOMINAL WALL: No significant hernia is seen. There is skin thickening just above the sacrum on the left buttock which may be related to the patient's decubitus ulcer which is not clearly seen on the current study. LYMPH NODES: No retroperitoneal lymphadenopathy. VASCULAR: Calcific atherosclerotic changes present in the aorta and vessels without aneurysm. PELVIC VISCERA: Marked prostatic enlargement measuring 5.2 x 5.9 x 6.0 cm for a volume of between 96 and 120 cc. OSSEOUS STRUCTURES: Mild degenerative changes present in the spine. CT/CT abdomen pelvis wo con IMPRESSION: 1. The patient's decubitus ulcer is not well visualized. There is soft tissue thickening in the left buttock just below the coccyx. 2. Bilateral nephrolithiasis and collecting system dilatation without a definite obstructing stone. 3. Multiple bladder calculi. Calculi are also present in the bladder diverticula. A Marino catheter is in place but the bladder is still quite distended 4. Marked BPH 5. Mild rectal thickening but no obstruction. Fleischner guidelines were followed.
--- NOTE | ~2021-07-01 | XR_ITS ---
EXAMINATION: XR FOOT, LEFT CLINICAL INFORMATION: Ulcer COMPARISON: None TECHNIQUE: AP, lateral, and oblique views of the left foot. FINDINGS: The bones are osteopenic. No fracture or dislocation is seen. The joint spaces are normal. There is a dressing over the heel. There are small calcaneal spurs. No x-ray evidence of osteomyelitis is seen. XR/XR foot LT 2V IMPRESSION: Osteopenia. Calcaneal spurs. No x-ray evidence of osteomyelitis.
--- NOTE | ~2021-07-01 | CT_ITS ---
EXAMINATION: CT HEAD WITHOUT CONTRAST CLINICAL INFORMATION: Altered mental status COMPARISON: CT head 10/13/2019 TECHNIQUE: Contiguous axial imaging was performed from the skull base to vertex without intravenous administration of contrast. Coronal and sagittal reformatted images are performed at the CT scanner. [This CT examination was performed using dose optimization techniques as appropriate, variously including the following: *Automated exposure control *Adjustment of mA and/or kV according to patient size (this includes techniques or standardized protocols for targeted exams where dose is matched to indication/reason for exam; i.e. extremities or head) *Use of iterative reconstruction technique] DLP: 813 mGy-cm. FINDINGS: There is no evidence of acute intracranial hemorrhage or territorial infarction. No abnormal mass-effect or midline shift is seen. Acuña to white matter differentiation is well preserved. No extra-axial fluid collections are identified. There is generalized global volume loss. There is moderate prominence of the ventricles and the sulci . There is moderate hypodensity of the periventricular white matter due to chronic small vessel ischemic disease. There are vascular calcifications of the internal carotid arteries bilaterally. There is no osseous abnormality. The mastoid air cells and visualized portions of the paranasal sinuses are well-aerated. CT/CT head/brain wo con IMPRESSION: No acute intracranial pathology.
[2021-07-01 16:57] VITALS: BP 102/80; BP 98/54; PULSE 150; RESP 24; TEMP 40.1; O2SAT 98; BMI 22.4
--- NOTE | 2021-07-01 17:04 | ECG_ITS ---
Test Reason : CP Blood Pressure : / mmHG Vent. Rate : 148 BPM Atrial Rate : 148 BPM P-R Int : 116 ms QRS Dur : 074 ms QT Int : 266 ms P-R-T Axes : 061 060 077 degrees QTc Int : 417 ms Sinus tachycardia Otherwise normal ECG When compared with ECG of 03-APR-2020 21:15, Vent. rate has increased BY 85 BPM Nonspecific T wave abnormality no longer evident in Lateral leads Referred By: Divina Carrillo Electronically Signed By:Colt Mehta
[2021-07-01] MEDS: Acetaminophen Supp 650 MG SUPP.RECT PR (17:31)
[2021-07-01] MEDS: Piperacillin Sodium/Tazobactam 4.5 GM in 0.9 % Sodium Chloride 100 ML IV (17:32)
[2021-07-01] MEDS: vancomycin HCL 1,000 MG in 0.9 % Sodium Chloride 250 ML 270 MG IV (17:32)
[2021-07-01] MEDS: 0.9 % Sodium Chloride 1,000 ML 999 ML IV ×2 (17:33→20:42)
[2021-07-01 17:40] LABS: Basophils Percent Auto 0.1 % (0-2); Hematocrit 37.2 % (42.0-52.0); Hemoglobin 11.5 g/dl (14.0-18.0); Imm Gran Abs Auto 0.25 X10*3/uL (0.00-0.03); Imm Gran Pct Auto 1.1 % (0.0-0.4); Lymphocytes Absolute Auto 0.4 X10*3/uL (1.2-4.9); Lymphocytes Percent Auto 1.9 % (20-40); MANUAL DIFF FLAG SCAN; Mean Corpuscular HGB Conc 30.9 g/dl (31.0-36.0); Mean Corpuscular Hemoglobin 27.3 pg (27.0-33.0); Mean Corpuscular Volume 88.4 fL (80.0-98.0); Mean Platelet Volume 10.6 fL (9.4-12.4); Monocytes Absolute Auto 0.4 X10*3/uL (0.1-1.2); Monocytes Percent Auto 1.8 % (2-11); Neutrophils Absolute Auto 21.9 x10*3/uL (2.0-8.3); Neutrophils Percent Auto 95.1 % (45-73); Platelet Count 324 X10*3/uL (160-400); Red Blood Count 4.21 X10*6/uL (4.60-5.80); Red Cell Distribution Width 16.8 % (11.0-16.0); SCAN SMEAR FLAG 1
--- NOTE | 2021-07-01 17:43 | ED_ITS ---
HPI - General Adult General Chief complaint: General Medical Stated complaint: ?sepsis Time Seen by Provider: 07/01/21 16:53 History of Present Illness HPI narrative: Patient is an 86-year-old male with a history of dementia. Presented today with having generalized malaise weakness decreased p.o. intake increased respiratory rate. Patient's code status is unclear. Had a previous COVID-19 infection back in March. Family suggested patient is less responsive than usual. Per prev ious documentation patient is unable to give history is awake oriented times 0. Patient uses a G-tube. Baseline is contracted. Related Data Home Medications Medication Instructions Recorded Confirmed allopurinol 300 mg tablet 300 mg PO DAILY 04/03/20 07/01/21 aspirin 81 mg tablet 81 mg PO DAILY 04/03/20 07/01/21 metoprolol tartrate 25 mg tablet 25 mg PO BID 04/03/20 07/01/21 tamsulosin 0.4 mg capsule 0.4 mg PO BEDTIME 04/03/20 07/01/21 trazodone 50 mg tablet 25 mg PO BEDTIME 04/03/20 07/01/21 acetaminophen 500 mg tablet 500 mg PO Q8H PRN 07/01/21 07/01/21 amlodipine 2.5 mg tablet 1 tab PO DAILY 07/01/21 07/01/21 docusate sodium 100 mg capsule 1 cap PO BID 07/01/21 07/01/21 insulin lispro 100 unit/mL See Rx Instructions .ROUTE .COMPLEX 07/01/21 07/01/21 subcutaneous pen latanoprost 0.005 % eye drops 1 drp OPHTHALMIC (EYE) DAILY 07/01/21 07/01/21 levothyroxine 75 mcg tablet 1 tab PO DAILY 07/01/21 07/01/21 pantoprazole 40 mg tablet,delayed 1 tab PO DAILY 07/01/21 07/01/21 release thiamine HCl (vitamin B1) 100 mg 1 tab PO DAILY 07/01/21 07/01/21 tablet Allergies Allergy/AdvReac Type Severity Reaction Status Date / Time No Known Allergies Allergy Mild NONE Verified 04/03/20 23:07 Review of Systems Review of Systems: Unable to obtain review of systems secondary to patient's condition PMFSH Past Medical History Attestation statement: The following information was validated with the patient. Medical History BPH (benign prostatic hyperplasia) Coronary artery disease CVA (cerebral vascular accident) Dementia Diabetes Gout HTN (hypertension) Hypothyroidism Surgical History Hx of CABG Social History Social History Household Members: Family Housing: House Do you presently have visiting nurse or other home services: No Alcohol intake: never Advance Directives: No Advance Directives Information Provided: No Physical Exam Vital Signs: Vital Signs: Last Vital Signs Temp 100.6 F H 07/01/21 18:53 Pulse 118 H 07/01/21 18:53 Resp 22 H 07/01/21 18:53 BP 97/50 L 07/01/21 18:53 Pulse Ox 98 07/01/21 18:53 Oxygen Flow Rate 2 07/01/21 16:57 BMI result Body Mass Index 22.4 Appearance: Toxic appearing male cachectic contracted Eyes: Pupils equal, round and reactive to light. ENT: Pharynx normal. Dry mucous membrane Neck: Normal inspection. Neck supple. No lymph nodes noted. No crepitus CVS: Tachycardic but regular Respiratory diminished breath sounds bilaterally Abdomen: Soft nontender Skin: Contracted positive weakness to the genital area. Positive decubital ulcer down to subcutaneous tissue approximately 5 cm x 4 cm in size. Extremities: No lower extremity edema. Neurovascular intact to all extremities. No Lacerations. No Rash Neuro: Oriented times 0 contracted Medical Decision Making MDM Narrative Medical decision making narrative: Patient grossly appear septic. Elevated temperature 104.1 degrees. Had tachycardia increased respiratory rate. Culture obtained immediately. Patient given IV fluid. Total of greater than 30 cc/kilos was given. Culture obtained. Antibiotics started. Zosyn and vancomycin was given. CT scan of the head C- spine chest abdomen pelvis was done. Patient had areas of redness necrosis in his decubiti I ulcer and also around the scrotum. CT scan was done to rule out the possibility of Dianne's gangrene. After IV fluids and Tylenol for fever patient's temperature came down to 101. Heart rate going down to approximately 110. Family at bedside. Agree with plan of do not resuscitate. Agree with plan of do not intubate. The case was discussed with the hospitalist team. Most likely source of infection is skin and also urine. Patient's has a chronic indwelling Marino. The urine appeared to be milky in color. The chest showed no focal infiltrate. Family is aware of patient's critical condition. White count just came back at 23. Patient's creatinine is elevated at 2.05. Repeat focal exam for sepsis done. Patient seems to be improving. Patient's flu COVID RSV were negative. The initial lactate was 8 Lab Data Lab results reviewed: Yes I reviewed the patient's lab results. Result diagrams: 07/01/21 17:27 07/01/21 17:27 Labs: Lab Results 07/01/21 07/01/21 07/01/21 Range/Units 17:19 17:27 17:27 WBC 23.0 H (4.8-10.8) X10*3/uL RBC 4.21 L (4.60-5.80) X10*6/uL Hgb 11.5 L (14.0-18.0) g/dl Hct 37.2 L (42.0-52.0) % MCV 88.4 (80.0-98.0) fL MCH 27.3 (27.0-33.0) pg MCHC 30.9 L (31.0-36.0) g/dl RDW 16.8 H (11.0-16.0) % Plt Count 324 (160-400) X10*3/uL MPV 10.6 (9.4-12.4) fL Immature Gran % (Auto) 1.1 H (0.0-0.4) % Neut % (Auto) 95.1 H (45-73) % Lymph % (Auto) 1.9 L (20-40) % [place] % (Auto) 1.8 L (2-11) % Eos % (Auto) 0.0 (0-4) % Baso % (Auto) 0.1 (0-2) % Lymph # (Auto) 0.4 L (1.2-4.9) X10*3/uL [place] # (Auto) 0.4 (0.1-1.2) X10*3/uL Eos # (Auto) 0.0 (0.0-0.4) X10*3/uL Baso # (Auto) 0.0 (0.0-0.2) X10*3/uL Abs Immat Gran (auto) 0.25 H (0.00-0.03) X10*3/uL Absolute Neuts (auto) 21.9 H (2.0-8.3) x10*3/uL Absolute Nucleated RBC 0.000 (0.0-0.012) X10*3/uL Nucleated RBC % (auto) 0.0 (0.0-0.2) /100WBC Smear Tech's Comments VERIFIED Sodium 133 L (135-145) mmol/L Potassium 4.4 (3.3-5.1) mmol/L Chloride 97 (96-108) mmol/L Carbon Dioxide 21 L (22-29) mmol/L Anion Gap 19 (12-20) BUN 39 H (9-16) mg/dL Creatinine 2.05 H (0.5-1.4) mg/dL Estim Creat Clear Calc 27.8 Estimated GFR 31 Random Glucose 226 H D (60-115) mg/dL Lactic Acid (0.5-2.0) mmol/L Calcium 10.9 H D (8.4-10.2) mg/dL Total Bilirubin 0.9 (0.0-1.0) mg/dL Direct Bilirubin 0.6 H (0.0-0.5) mg/dL AST 26 D (5-37) U/L ALT 22 (0-40) U/L Alkaline Phosphatase 94 (39-117) U/L Total Protein 6.5 (6.5-8.0) g/dL Albumin 2.9 L D (3.5-5.0) g/dL Urine Color Urine Appearance Urine pH (5.0-8.0) Ur Specific [place] (1.005-1.025) Urine Protein (NEG-TRACE) MG/DL Urine Glucose (UA) (NEG) MG/DL Urine Ketones (NEG) MG/DL Urine Blood (NEG) Urine Nitrite (NEG) Ur Leukocyte Esterase (NEG) Influenza Type A (PCR) NEGATIVE (Negative) Influenza Type B (PCR) NEGATIVE (Negative) RSV RNA Qual (PCR) NEGATIVE (Negative) SARS-CoV-2 RNA (RT-PCR) NEGATIVE (Negative) 07/01/21 07/01/21 Range/Units 17:27 20:36 WBC (4.8-10.8) X10*3/uL RBC (4.60-5.80) X10*6/uL Hgb (14.0-18.0) g/dl Hct (42.0-52.0) % MCV (80.0-98.0) fL MCH (27.0-33.0) pg MCHC (31.0-36.0) g/dl RDW (11.0-16.0) % Plt Count (160-400) X10*3/uL MPV (9.4-12.4) fL Immature Gran % (Auto) (0.0-0.4) % Neut % (Auto) (45-73) % Lymph % (Auto) (20-40) % [place] % (Auto) (2-11) % Eos % (Auto) (0-4) % Baso % (Auto) (0-2) % Lymph # (Auto) (1.2-4.9) X10*3/uL [place] # (Auto) (0.1-1.2) X10*3/uL Eos # (Auto) (0.0-0.4) X10*3/uL Baso # (Auto) (0.0-0.2) X10*3/uL Abs Immat Gran (auto) (0.00-0.03) X10*3/uL Absolute Neuts (auto) (2.0-8.3) x10*3/uL Absolute Nucleated RBC (0.0-0.012) X10*3/uL Nucleated RBC % (auto) (0.0-0.2) /100WBC Smear Tech's Comments Sodium (135-145) mmol/L Potassium (3.3-5.1) mmol/L Chloride (96-108) mmol/L Carbon Dioxide (22-29) mmol/L Anion Gap (12-20) BUN (9-16) mg/dL Creatinine (0.5-1.4) mg/dL Estim Creat Clear Calc Estimated GFR Random Glucose (60-115) mg/dL Lactic Acid 8.2 H* (0.5-2.0) mmol/L Calcium (8.4-10.2) mg/dL Total Bilirubin (0.0-1.0) mg/dL Direct Bilirubin (0.0-0.5) mg/dL AST (5-37) U/L ALT (0-40) U/L Alkaline Phosphatase (39-117) U/L Total Protein (6.5-8.0) g/dL Albumin (3.5-5.0) g/dL Urine Color YELLOW Urine Appearance CLEAR Urine pH >= 9.0 H (5.0-8.0) Ur Specific [place] <= 1.005 (1.005-1.025) Urine Protein 2+ H (NEG-TRACE) MG/DL Urine Glucose (UA) NEG (NEG) MG/DL Urine Ketones NEG (NEG) MG/DL Urine Blood NEG (NEG) Urine Nitrite NEG (NEG) Ur Leukocyte Esterase 3+ H (NEG) Influenza Type A (PCR) (Negative) Influenza Type B (PCR) (Negative) RSV RNA Qual (PCR) (Negative) SARS-CoV-2 RNA (RT-PCR) (Negative) Critical Care Time Critical Care Time Critical Care Time: Yes Total Critical Care Time: 120 Attestation: I have personally provided 120 minutes of critical care time exclusive of time spent on separately billable procedures. Time includes review of lab data, radiology results, discussion with consultants, and monitoring for potential decompensation. Interventions were performed as documented above Discharge Plan Discharge Clinical Impression: Sepsis Prescriptions: No Action trazodone 50 mg Tablet 25 mg PO BEDTIME 0RF tamsulosin 0.4 mg Capsule 0.4 mg PO BEDTIME 0RF allopurinol 300 mg Tablet 300 mg PO DAILY 0RF aspirin 81 mg Tablet 81 mg PO DAILY 0RF metoprolol tartrate 25 mg Tablet 25 mg PO BID 0RF latanoprost 0.005 % drops 1 drp ophthalmic (eye) DAILY 0RF thiamine HCl (vitamin B1) 100 mg tablet 1 tab PO DAILY 0RF amlodipine 2.5 mg tablet 1 tab PO DAILY 0RF acetaminophen 500 mg tablet 500 mg PO Q8H PRN (Reason: Pain) 0RF levothyroxine 75 mcg tablet 1 tab PO DAILY 0RF pantoprazole 40 mg tablet,delayed release (DR/EC) 1 tab PO DAILY 0RF docusate sodium 100 mg capsule 1 cap PO BID 0RF insulin lispro 100 unit/mL insulin pen See Rx Instructions .ROUTE .COMPLEX 0RF Rx Instructions: USE DIRECTED PER SLIDING SCALE Q8H PRN 150-199 2 UNITS 200-249 4 UNITS 250-299 6 UNITS 300-349 8 UNITS 350-399 10 UNITS CALL MD IF >400 OR <70
[2021-07-01 17:54] LABS: Lactic Acid 8.2 mmol/L (0.5-2.0)
[2021-07-01 17:57] LABS: Alanine Aminotransferase 22 U/L (0-40); Albumin Level 2.9 g/dL (3.5-5.0); Alkaline Phosphatase 94 U/L (39-117); Anion Gap 19 (12-20); Aspartate Amino Transferase 26 U/L (5-37); Bilirubin Direct 0.6 mg/dL (0.0-0.5); Bilirubin Total 0.9 mg/dL (0.0-1.0); Blood Urea Nitrogen 39 mg/dL (9-16); Calcium 10.9 mg/dL (8.4-10.2); Carbon Dioxide 21 mmol/L (22-29); Chloride 97 mmol/L (96-108); Creatinine Clr Calc Pharmacy 27.8; Estimated Glomerular Filt Rate 31; Glucose Random 226 mg/dL (60-115); Potassium 4.4 mmol/L (3.3-5.1); Sodium 133 mmol/L (135-145); Total Protein 6.5 g/dL (6.5-8.0)
--- NOTE | 2021-07-01 17:59 | PHA.MEDREC ---
Pharmacy Consult ? Medication Reconciliation Pharmacy has completed the medication reconciliation.
[2021-07-01 18:16] LABS: Influenza A PCR NEGATIVE (Negative); Influenza B PCR NEGATIVE (Negative); Resp Syncy Virus RNA Qual PCR NEGATIVE (Negative); SARS COV2 PCR INHOUSE NEGATIVE (Negative)
[2021-07-01 18:25] LABS: SLIDE REVIEW VERIFIED
[2021-07-01 18:53] VITALS: BP 97/50; PULSE 118; RESP 22; TEMP 38.1; O2SAT 98
[2021-07-01 19:33] LABS: Reflex Lactate? Lactic Acid Added
[2021-07-01 20:44] LABS: Appearance Urine CLEAR; Color Urine YELLOW; Glucose Urine UA NEG (NEG); Leukocyte Esterase Urine 3+ (NEG); Nitrite Urine NEG (NEG); PH >= 9.0 (5.0-8.0); Specific Gravity - Urine <= 1.005 (1.005-1.025); UACC Culture Trigger YES; Urine Blood NEG (NEG); Urine Ketones NEG (NEG)
[2021-07-01 20:45] LABS: Urine Protein 2+ MG/DL (NEG-TRACE)
[2021-07-01 20:54] LABS: UACC CULT YES
[2021-07-01 20:55] LABS: Amorphous Sediment Urine 3+ /LPF; Bacteria Urine 2+ /LPF; RBC Urine 0-2 /HPF (0); WBC Clumps Urine NOTED
[2021-07-01 21:09] LABS: ~Lactic Acid-LAB USE ONLY 7.2 mmol/L (0.5-2.0)
--- NOTE | 2021-07-01 22:25 | P.HPHOSP_ITS ---
History of Present Illness Date of Service: 07/01/21 Chief Complaint: increased lethargy this is an 86-year-old male with past medical history of coronary artery disease status post CABG, CVA that has now left him mostly bed bound, mild dementia, diabetes, hypertension, and hypothyroidism who is brought in to the hospital by his family due to him not feeling well. According to the daughter at bedside who speaks Iranian only patient is usually verbal, oriented to himself and place and able to verbalized her if he has been feeling sick. He started complaining of lower abdominal pain, she thought it was secondary to constipation so therefore she gave him a bowel regimen which made him move his bowels with no issues. He continued to complain of abdominal pain, and progressively got worse. Pt has a feeding tube in place, He started having vomiting,so she stopped his feeding tubes, He started also becoming more diaphoretic, images progressively worsening. his visiting nurse came and asked her to call EMS and bring him to the hospital. Patient himself is very somnolent, unable to get much history from him. of note he has a chronic indwelling catheter and a decubitus ulcer from his stay at the [facility] per his daughter. On arrival to the ED patient found Have a temperature of 104.2 degrees, heart rate of 150, respiratory rate of 24, blood pressure 102/80, satting 97% on room air. Labs are significant for WBC count of 23, hemoglobin of 11.5, hematocrit 37, is BUN of 29, creatinine of 2.05 with baseline around 1.1, lactic acid of 8.2, UA positive for leukocyte Estrace as well as WBC, COVID-19 negative. Chest x-ray showed no acute abnormality initial Abdominal CT shows the decubitus ulcers not well visualized, there is soft tissue thickening in the left buttock just below the coccyx, bilateral nephrolithiasis and collecting system dilatation without a definite obstructing stone, due to his projectile vomiting while in the ED abdominal CT was repeated which was limited but showed dependent baby similar pulmonary opacities which could reflect atelectasis versus consolidation versus aspiration, nonobstructing bowel gas pattern, distended urinary bladder with Marino catheter in place nonspecific stranding in the lower pelvis, subcutaneous stranding overly in the coccyx may reflect a decubitus ulcer patient started on IV antibiotics, IV fluids, will be admitted for further management Review of Systems Review of Systems: Yes Unobtainable due to mental condition and Unobtainable due to mental status PMFSH Medical History BPH (benign prostatic hyperplasia) Coronary artery disease CVA (cerebral vascular accident) Dementia Diabetes Gout HTN (hypertension) Hypothyroidism Family History (Updated 07/02/21 @ 07:01 by Kelly Barakat MD) Other No family history of coronary artery disease Surgical History Hx of CABG Social History Household Members: Family Housing: House Do you presently have visiting nurse or other home services: No Alcohol intake: current Patient Tobacco Use Status: Never used Tobacco Use of substances other than those prescribed or required for medical reasons: No Advance Directives: No Advance Directives Information Provided: No Meds Allergies Allergy/AdvReac Type Severity Reaction Status Date / Time No Known Allergies Allergy Mild NONE Verified 04/03/20 23:07 Active Medications: Current Medications Pharmacy Consult (Consult Rx Perform Med Rec) 1 each MISCELLANE ONCE PRN PRN Reason: Consult order Pharmacy Consult (Consult Rx Perform Med Rec) 1 each MISCELLANE ONCE PRN PRN Reason: Consult order Home Medications Medication Instructions Recorded Confirmed Last Taken Type allopurinol 300 mg tablet 300 mg PO DAILY 04/03/20 07/01/21 Unknown History aspirin 81 mg tablet 81 mg PO DAILY 04/03/20 07/01/21 Unknown History metoprolol tartrate 25 mg tablet 25 mg PO BID 04/03/20 07/01/21 Unknown History tamsulosin 0.4 mg capsule 0.4 mg PO BEDTIME 04/03/20 07/01/21 Unknown History trazodone 50 mg tablet 25 mg PO BEDTIME 04/03/20 07/01/21 Unknown History acetaminophen 500 mg tablet 500 mg PO Q8H PRN 07/01/21 07/01/21 Unknown History amlodipine 2.5 mg tablet 1 tab PO DAILY 07/01/21 07/01/21 Unknown History docusate sodium 100 mg capsule 1 cap PO BID 07/01/21 07/01/21 Unknown History insulin lispro 100 unit/mL See Rx Instructions .ROUTE .COMPLEX 07/01/21 07/01/21 Unknown History subcutaneous pen latanoprost 0.005 % eye drops 1 drp OPHTHALMIC (EYE) DAILY 07/01/21 07/01/21 Unknown History levothyroxine 75 mcg tablet 1 tab PO DAILY 07/01/21 07/01/21 Unknown History pantoprazole 40 mg tablet,delayed 1 tab PO DAILY 07/01/21 07/01/21 Unknown History release thiamine HCl (vitamin B1) 100 mg 1 tab PO DAILY 07/01/21 07/01/21 Unknown History tablet Physical Exam Vital Signs and Narrative: Vital Signs: Last Vital Signs Temp 100.6 F H 07/01/21 18:53 Pulse 118 H 07/01/21 18:53 Resp 22 H 07/01/21 18:53 BP 97/50 L 07/01/21 18:53 Pulse Ox 98 07/01/21 18:53 Oxygen Flow Rate 2 07/01/21 16:57 BMI result Body Mass Index 22.4 Const: Other: somnolent, opens his eyes but does not answer questions Eyes: Other: conjunctival erythema of the left eyelid General: appearance normal, both eyes and all related structures Resp: Effort & Inspection: normal respiratory effort Cardio: Rate: regular rate Rhythm: regular rhythm GI: Other: PEG tube in place, Palpation (GI): Soft to palpation : Other: Marino catheter in place, draining turbulent Skin: General skin exam: no rashes or lesions noted Neuro: Other: somnolent, unable to assess mental status or neuro exam history of CVA with residual hemiplegia Extrem: General: Yes normal to inspection and Yes no pedal edema Results Labs CBC and Chem 7: 07/01/21 17:27 07/01/21 17:27 Labs: Laboratory Results - last 24 hr 07/01/21 07/01/21 07/01/21 17:19 17:27 17:27 MCV 88.4 MCH 27.3 MCHC 30.9 L RDW 16.8 H Plt Count 324 MPV 10.6 Immature Gran % (Auto) 1.1 H Neut % (Auto) 95.1 H Lymph % (Auto) 1.9 L [place] % (Auto) 1.8 L Eos % (Auto) 0.0 Baso % (Auto) 0.1 Lymph # (Auto) 0.4 L [place] # (Auto) 0.4 Eos # (Auto) 0.0 Baso # (Auto) 0.0 Abs Immat Gran (auto) 0.25 H Absolute Neuts (auto) 21.9 H Absolute Nucleated RBC 0.000 Nucleated RBC % (auto) 0.0 Smear Tech's Comments VERIFIED Anion Gap 19 Estim Creat Clear Calc 27.8 Estimated GFR 31 Random Glucose 226 H D Lactic Acid Lactic Acid F/U @ 2Hr Calcium 10.9 H D Total Bilirubin 0.9 Direct Bilirubin 0.6 H AST 26 D ALT 22 Alkaline Phosphatase 94 Total Protein 6.5 Albumin 2.9 L D Urine Color Urine Appearance Urine pH Ur Specific [place] Urine Protein Urine Glucose (UA) Urine Ketones Urine Blood Urine Nitrite Ur Leukocyte Esterase Urine RBC Urine WBC Urine WBC Clumps Ur Squamous Epith Cells Amorphous Sediment Urine Bacteria Influenza Type A (PCR) NEGATIVE Influenza Type B (PCR) NEGATIVE RSV RNA Qual (PCR) NEGATIVE SARS-CoV-2 RNA (RT-PCR) NEGATIVE 07/01/21 07/01/21 07/01/21 17:27 20:36 20:36 MCV MCH MCHC RDW Plt Count MPV Immature Gran % (Auto) Neut % (Auto) Lymph % (Auto) [place] % (Auto) Eos % (Auto) Baso % (Auto) Lymph # (Auto) [place] # (Auto) Eos # (Auto) Baso # (Auto) Abs Immat Gran (auto) Absolute Neuts (auto) Absolute Nucleated RBC Nucleated RBC % (auto) Smear Tech's Comments Anion Gap Estim Creat Clear Calc Estimated GFR Random Glucose Lactic Acid 8.2 H* Lactic Acid F/U @ 2Hr 7.2 H* Calcium Total Bilirubin Direct Bilirubin AST ALT Alkaline Phosphatase Total Protein Albumin Urine Color YELLOW Urine Appearance CLEAR Urine pH >= 9.0 H Ur Specific [place] <= 1.005 Urine Protein 2+ H Urine Glucose (UA) NEG Urine Ketones NEG Urine Blood NEG Urine Nitrite NEG Ur Leukocyte Esterase 3+ H Urine RBC 0-2 Urine WBC 5-9 H Urine WBC Clumps NOTED Ur Squamous Epith Cells NONE Amorphous Sediment 3+ Urine Bacteria 2+ Influenza Type A (PCR) Influenza Type B (PCR) RSV RNA Qual (PCR) SARS-CoV-2 RNA (RT-PCR) Imaging Radiologist's Impressions: Impressions Chest X-Ray 07/01/21 17:11 IMPRESSION: No acute abnormality of chest. Abdomen/Pelvis CT 07/01/21 18:16 IMPRESSION: 1. The patient's decubitus ulcer is not well visualized. There is soft tissue thickening in the left buttock just below the coccyx. 2. Bilateral nephrolithiasis and collecting system dilatation without a definite obstructing stone. 3. Multiple bladder calculi. Calculi are also present in the bladder diverticula. A Marino catheter is in place but the bladder is still quite distended 4. Marked BPH 5. Mild rectal thickening but no obstruction. Fleischner guidelines were followed. Head CT 07/01/21 18:16 IMPRESSION: No acute intracranial pathology. Assessment and Plan (1) Severe sepsis: Status: Acute (2) UTI (urinary tract infection): Status: Acute (3) Lactic acid acidosis: Status: Acute (4) STAR (acute kidney injury): Status: Acute Plan 86-year-old male with past medical history of CVA, CAD who presents to the hospital found to have severe sepsis likely secondary to UTI # severe sepsis - tachycardia, tachypnea, lactic acidosis, leukocytosis - likely source is urine - patient will be treated with IV antibiotics, IV fluids - Will follow cultures # UTI - has chronic Marino in place, draining purulent urine - IV antibiotics - follow cultures # lactic acidosis - secondary to sepsis - IV fluids - trend # STAR - acute - renal secondary to sepsis - IV fluids - follow BMP # vomiting - likely secondary to sepsis - no evidence of small-bowel obstruction on CT abdomen - antiemetics - will place G-tube - staff to feed patient will be NPO given his projectile vomitingwill hold all his p.o. home medications DVT prophylaxis: Heparin subQ Quality Stroke Does the patient have a stroke diagnosis?: No VTE Prior VTE?: No VTE Risk Level:: Medical - moderate - high VTE Device Contraindication: Treatment Not Indicated VTE Drug Contraindication: N/A - Med Ordered
[2021-07-01 22:39] LABS: Reflex Lactate? 2 Y
[2021-07-01] MEDS: Piperacillin Sodium/Tazobactam 3.375 GM in 0.9 % Sodium Chloride 50 ML IV (23:52)
[2021-07-01] MEDS: Heparin Sodium,Porcine 5,000 UNIT/ML VIAL 5000 UNIT SUBCUT (23:52)
[2021-07-01] MEDS: 0.9 % Sodium Chloride 2,245.29 ML 2245.29 ML IV (23:53)
[2021-07-02] VITALS (15 sets, daily range): BP systolic 79–127; BP diastolic 43–68; PULSE 93–144; RESP 20–40; TEMP 36.5–39.2; O2SAT 96–100
[2021-07-02 00:01] LABS: ~Lactic Acid-LAB USE ONLY 6.2 mmol/L (0.5-2.0)
[2021-07-02] MEDS: 0.9 % Sodium Chloride 1,000 ML 100 ML IVCONT (02:00)
--- NOTE | 2021-07-02 02:40 | PC.NURSE ---
Patient alert non-verbal. Patient has g-tube dressing clean dry and intact. Patient has a chronic whittington placed last monday per family. Patient has multiple wounds on coccyx and buttock pictures taken and sent to Dr. Carrillo for chart. Patient is on a diabetic feeding at night. Patient coughing up phlegm but not able to clear. Patient dark green ememsis. Patient has rectal temp probe placed. Penis and scrotum excoriated and red. Family states they know what is put on dressing on coccyx. When patient came in had temp 104.4 rectal. Sepsis protocol started. tele: sinus tachycardia 150's now is 100-110's. bp was low see vitals for trend. Will continue to monitor.
[2021-07-02] MEDS: Acetaminophen Supp 650 MG SUPP.RECT PR (04:40)
[2021-07-02] MEDS: ondansetron HCL 4 MG/2 ML VIAL IVPUSH (04:44)
--- NOTE | 2021-07-02 05:33 | PC.NURSE ---
Took over pt at 3:30am from GLORIA Valle, pt had rectal temp of 102.6 pt medicated per Jul, pt having projectile (bile)vomiting. Dr Terry aware and into access pt. Medicated per Jul. Complete bed change and Tisha care. Pressure dressing applied to Coccyx for wound. Pt taken to CT Scan.
--- NOTE | 2021-07-02 06:38 | PC.NURSE ---
Notified Dr. Barakat whittington is not draining well attempted to irrigated but unsuccessful. Urology consult in place.
[2021-07-02] MEDS: Piperacillin Sodium/Tazobactam 3.375 GM in 0.9 % Sodium Chloride 50 ML IV ×4 (07:08→22:58)
[2021-07-02 07:56] LABS: Hematocrit 32.6 % (42.0-52.0); Hemoglobin 10.2 g/dl (14.0-18.0); Mean Corpuscular HGB Conc 31.3 g/dl (31.0-36.0); Mean Corpuscular Hemoglobin 27.5 pg (27.0-33.0); Mean Corpuscular Volume 87.9 fL (80.0-98.0); Mean Platelet Volume 11.6 fL (9.4-12.4); Platelet Count 235 X10*3/uL (160-400); Red Blood Count 3.71 X10*6/uL (4.60-5.80)
--- NOTE | 2021-07-02 07:58 | PC.NURSE ---
contact made with hospialist- aware of temp 102
[2021-07-02 08:01] LABS: White Blood Count 37.3 X10*3/uL (4.8-10.8)
[2021-07-02 08:18] LABS: Anion Gap 20 (12-20); Blood Urea Nitrogen 52 mg/dL (9-16); Calcium 9.2 mg/dL (8.4-10.2); Carbon Dioxide 16 mmol/L (22-29); Chloride 105 mmol/L (96-108); Creatinine Clr Calc Pharmacy 22.7; Estimated Glomerular Filt Rate 25; Glucose Random 138 mg/dL (60-115); Potassium 5.7 mmol/L (3.3-5.1); Sodium 135 mmol/L (135-145)
[2021-07-02 08:29] LABS: Band Neutrophils Percent 40 % (3-5); Metamyelocytes Absolute 1.1 X10*3/uL; Metamyelocytes Percent 3 %; Monocytes Absolute Manual 0.4 X10*3/uL (0.1-1.2); Monocytes Percent Manual 1 % (2-11); Neutrophils Absolute Manual 35.8 X10*3/uL (2.0-8.3); Neutrophils Percent Manual 56 % (45-73)
[2021-07-02 08:31] LABS: Acanthocytes 1+ (0-2) /OIF; Burr Cells 2+ (3-5) /OIF; Platelet Estimate NORMAL (NORMAL); Platelet Morphology Comment NORMAL; Polychromasia 1+ (0-2) /OIF; RBC Morphology NOTED
[2021-07-02 08:32] LABS: Macrocytosis 1+ (5-14) /OIF; Toxic Vacuolation PRESENT
--- NOTE | 2021-07-02 09:20 | PHA.PROG ---
Admission Date/Time: July 01, 2021 22:22 Indication: Severe Sepsis Weight in k.843 kg Adjusted body weight in K.49 kg Dania body weight in K.6 kg Obesity Dosing Indication % IBW: 96 % Serum Creatinine - Last 168 Hours 07/01/21 07/02/21 17:27 07:40 Creatinine 2.05 H 2.51 H Estimated CrCl and GFR - Last 168 Hours 07/01/21 07/02/21 17:27 07:40 Estim Creat Clear Calc 27.8 22.7 Estimated GFR 31 25 Vancomycin Loading Dose: N/A Current Vancomycin Dosing Regimen: 1250 mg Q48H Date and Time for next Vancomycin Level to be drawn: Pharmacist Comments on Vancomycin Plan: Patient did not receive an adequate loading dose for her weight. She received 1000 mg on 07/01 @ 1732. Since patient is severely septic, to help patient get to therapeutic levels, will give vancomycin 750 mg 24 hours later on 07/02 @ 1700. Maintenance dose 1250 mg Q48H to start 07/04 @ 1700. Expected AUC 516 with a trough of 15.8 Random level will be drawn 07/03 @ 1500 to determine if patient will need Q24H dosing instead if renal function improves or a decreased dose on 07/04 if renal function worsen Currently patient's renal function is worsen with a jump in SCr from 2.05 to 2.51. Pharmacy will continue to monitor renal function daily Neris Mays PharmD Vancomycin dosing will take advantage of [employer] as a clinical decision support tool that uses Bayesian modeling to calculate individual patient's pharmacokinetic parameters and forecast the patient's drug concentration time course with the target goal AUC 24 range of 400 - 600 mg/L/hr.
[2021-07-02] MEDS: 0.9 % Sodium Chloride 1,000 ML 500 ML IVCONT (10:15)
[2021-07-02] MEDS: Heparin Sodium,Porcine 5,000 UNIT/ML VIAL 5000 UNIT SUBCUT (10:38)
--- NOTE | 2021-07-02 11:26 | HO.PM.IMPN ---
Subjective Subjective Date of Service: 07/02/21 Interval History: seen and examined this morning family at bedside, history obtained with use of verification lead patient unable to provide any history due to mental status pt continues to be tachycardia, tachypnic and with borderline blood pressure Review of Systems Review of Systems: Yes Unobtainable due to mental condition and Unobtainable due to mental status Physical Exam Vital Signs: Vital Signs: Last Vital Signs Temp 99.5 F 07/02/21 10:15 Pulse 116 H 07/02/21 10:15 Resp 37 H 07/02/21 10:15 BP 87/43 L 07/02/21 10:15 Pulse Ox 99 07/02/21 10:15 Oxygen Flow Rate 2 07/01/21 16:57 BMI result Body Mass Index 22.4 Const: Other: not responding verbally General: ill appearing and lethargic Orientation/consciousness: lethargic Resp: Effort & Inspection: tachypneic and uses accessory muscles Cardio: Rate: tachycardic Heart sounds: S1 normal heart sound present and S2 normal heart sound present GI: Other: feeding tube in palce; mild tenderness suprapubic area; abdomen softly distended : Other: whittington in place, minimal urine output Skin: Other: ulcer coccyx appears clean no drainage Extrem: Other: no leg edema Objective Data Active Medications Acetaminophen (Acetaminophen Supp 650 Mg Supp.Rect) 650 mg PA Q6H PRN PRN Reason: Pain, Mild (Pain Scale 1-3) Last Admin: 07/02/21 04:40 Dose: 650 mg Documented by: ENDER Heparin Sodium (Porcine) (Heparin Sodium,Porcine 5,000 Unit/Ml Vial) 5,000 unit SUBCUT Q12H [facility] Last Admin: 07/02/21 10:38 Dose: 5,000 unit Documented by: JUDSON Sodium Chloride (Ns) 1,000 mls @ 100 mls/hr IVCONT .Q10H [facility] Last Admin: 07/02/21 08:41 Dose: Not Given Documented by: MAC Non-Admin Reason: IV Running Piperacillin Sod/Tazobactam (Sod 3.375 gm/ Sodium Chloride) 50 mls @ 100 mls/hr IV Q6H [facility] Last Admin: 07/02/21 10:38 Dose: 100 mls/hr Documented by: JUDSON Vancomycin HCl 750 mg/ Sodium (Chloride) 265 mls @ 265 mls/hr IV ONCE ONE Stop: 07/02/21 17:59 Vancomycin HCl 1,250 mg/ (Sodium Chloride) 250 mls @ 166.667 mls/hr IV Q48H [facility] Sodium Chloride (Ns) 1,000 mls @ 500 mls/hr IVCONT .Q2H [facility] Stop: 07/02/21 12:44 Albumin Human (Kedbumin 25 %) 100 mls @ 100 mls/hr IV Q1H [facility] Stop: 07/02/21 13:29 Ondansetron HCl (Ondansetron Hcl 4 Mg/2 Ml Vial) 4 mg IVPUSH Q8H PRN PRN Reason: Nausea and Vomiting Last Admin: 07/02/21 04:44 Dose: 4 mg Documented by: RD Pharmacy Consult (Consult Rx Perform Med Rec) 1 each MISCELLANE ONCE PRN PRN Reason: Consult order Pharmacy Consult (Consult Rx Perform Med Rec) 1 each MISCELLANE ONCE PRN PRN Reason: Consult order Pharmacy Consult (Consult Rx Vancomycin Dosing) 1 each MISCELLANE DAILY PRN PRN Reason: Consult order Sodium Chloride (0.9 % Sodium Chloride Flush 3 Ml Syringe) 3 ml IVFLUSH QSHIFT [facility] Last Admin: 07/02/21 07:38 Dose: Not Given Documented by: MAC Non-Admin Reason: IV Running Labs CBC & Chem 7: 07/02/21 07:40 07/02/21 07:40 Labs: Laboratory Results - last 24 hr 07/01/21 07/01/21 07/01/21 17:19 17:27 17:27 MCV 88.4 MCH 27.3 MCHC 30.9 L RDW 16.8 H Plt Count 324 MPV 10.6 Immature Gran % (Auto) 1.1 H Neut % (Auto) 95.1 H Lymph % (Auto) 1.9 L Ellis % (Auto) 1.8 L Eos % (Auto) 0.0 Baso % (Auto) 0.1 Lymph # (Auto) 0.4 L Ellis # (Auto) 0.4 Eos # (Auto) 0.0 Baso # (Auto) 0.0 Abs Immat Gran (auto) 0.25 H Absolute Neuts (auto) 21.9 H Absolute Nucleated RBC 0.000 Nucleated RBC % (auto) 0.0 Neutrophils % (Manual) Band Neutrophils % Monocytes % (Manual) Metamyelocytes % Abs Neuts (Manual) Monocytes # (Manual) Metamyelocytes # Toxic Vacuolation Platelet Estimate Plt Morphology Comment RBC Morphology Polychromasia Macrocytosis Donnlel Cells Acanthocytes (Spur) Smear Tech's Comments VERIFIED Anion Gap 19 Estim Creat Clear Calc 27.8 Estimated GFR 31 Random Glucose 226 H D Lactic Acid Lactic Acid F/U @ 2Hr Lactic Acid F/U @ 4Hr Calcium 10.9 H D Total Bilirubin 0.9 Direct Bilirubin 0.6 H AST 26 D ALT 22 Alkaline Phosphatase 94 Total Protein 6.5 Albumin 2.9 L D Urine Color Urine Appearance Urine pH Ur Specific [place] Urine Protein Urine Glucose (UA) Urine Ketones Urine Blood Urine Nitrite Ur Leukocyte Esterase Urine RBC Urine WBC Urine WBC Clumps Ur Squamous Epith Cells Amorphous Sediment Urine Bacteria Influenza Type A (PCR) NEGATIVE Influenza Type B (PCR) NEGATIVE RSV RNA Qual (PCR) NEGATIVE SARS-CoV-2 RNA (RT-PCR) NEGATIVE 07/01/21 07/01/21 07/01/21 17:27 20:36 20:36 MCV MCH MCHC RDW Plt Count MPV Immature Gran % (Auto) Neut % (Auto) Lymph % (Auto) Ellis % (Auto) Eos % (Auto) Baso % (Auto) Lymph # (Auto) Ellis # (Auto) Eos # (Auto) Baso # (Auto) Abs Immat Gran (auto) Absolute Neuts (auto) Absolute Nucleated RBC Nucleated RBC % (auto) Neutrophils % (Manual) Band Neutrophils % Monocytes % (Manual) Metamyelocytes % Abs Neuts (Manual) Monocytes # (Manual) Metamyelocytes # Toxic Vacuolation Platelet Estimate Plt Morphology Comment RBC Morphology Polychromasia Macrocytosis Donnell Cells Acanthocytes (Spur) Smear Tech's Comments Anion Gap Estim Creat Clear Calc Estimated GFR Random Glucose Lactic Acid 8.2 H* Lactic Acid F/U @ 2Hr 7.2 H* Lactic Acid F/U @ 4Hr Calcium Total Bilirubin Direct Bilirubin AST ALT Alkaline Phosphatase Total Protein Albumin Urine Color YELLOW Urine Appearance CLEAR Urine pH >= 9.0 H Ur Specific [place] <= 1.005 Urine Protein 2+ H Urine Glucose (UA) NEG Urine Ketones NEG Urine Blood NEG Urine Nitrite NEG Ur Leukocyte Esterase 3+ H Urine RBC 0-2 Urine WBC 5-9 H Urine WBC Clumps NOTED Ur Squamous Epith Cells NONE Amorphous Sediment 3+ Urine Bacteria 2+ Influenza Type A (PCR) Influenza Type B (PCR) RSV RNA Qual (PCR) SARS-CoV-2 RNA (RT-PCR) 07/01/21 07/02/21 07/02/21 23:25 07:40 07:40 MCV 87.9 MCH 27.5 MCHC 31.3 RDW 17.0 H Plt Count 235 D MPV 11.6 Immature Gran % (Auto) Cancelled Neut % (Auto) Cancelled Lymph % (Auto) Cancelled Ellis % (Auto) Cancelled Eos % (Auto) Cancelled Baso % (Auto) Cancelled Lymph # (Auto) Cancelled Ellis # (Auto) Cancelled Eos # (Auto) Cancelled Baso # (Auto) Cancelled Abs Immat Gran (auto) Cancelled Absolute Neuts (auto) Cancelled Absolute Nucleated RBC 0.000 Nucleated RBC % (auto) 0.0 Neutrophils % (Manual) 56 Band Neutrophils % 40 H Monocytes % (Manual) 1 L Metamyelocytes % 3 Abs Neuts (Manual) 35.8 H Monocytes # (Manual) 0.4 Metamyelocytes # 1.1 Toxic Vacuolation PRESENT Platelet Estimate NORMAL Plt Morphology Comment NORMAL RBC Morphology NOTED Polychromasia 1+ (0-2) Macrocytosis 1+ (5-14) [place] Cells 2+ (3-5) Acanthocytes (Spur) 1+ (0-2) Smear Tech's Comments Anion Gap 20 Estim Creat Clear Calc 22.7 Estimated GFR 25 Random Glucose 138 H D Lactic Acid Lactic Acid F/U @ 2Hr Lactic Acid F/U @ 4Hr 6.2 H* Calcium 9.2 D Total Bilirubin Direct Bilirubin AST ALT Alkaline Phosphatase Total Protein Albumin Urine Color Urine Appearance Urine pH Ur Specific [place] Urine Protein Urine Glucose (UA) Urine Ketones Urine Blood Urine Nitrite Ur Leukocyte Esterase Urine RBC Urine WBC Urine WBC Clumps Ur Squamous Epith Cells Amorphous Sediment Urine Bacteria Influenza Type A (PCR) Influenza Type B (PCR) RSV RNA Qual (PCR) SARS-CoV-2 RNA (RT-PCR) Microbiology Microbiology Results: Microbiology 07/01/21 17:28 Blood Culture - Preliminary Blood - Venous Prelim: GNR Gram Stain only 07/01/21 17:24 Blood Culture - Preliminary Blood - Venous Prelim: GNR Gram Stain only Prelim: GPC Gram Stain only Assessment and Plan (1) Bacteremia: Status: Acute (2) STAR (acute kidney injury): Status: Acute (3) Severe sepsis: Status: Acute Plan 86-year-old male with past medical history of CVA, CAD who presents to the hospital found to have severe sepsis likely secondary to UTI severe sepsis BP low despite IVF resuscitation; received 4.5L and getting another L bolus now; continue IVF, discussed with ICU, recommend albumin tachycardia, tachypnea, lactic acidosis, leukocytosis likely source is urine follow up final culture results GNR bacteremia secondary to UTI related to chronic whittington continue broad spectrum abx follow cultures STAR renal function worsening. decreased UO likely secondary to sepsis IV fluids follow BMP Hyperkalemia r/t to STAR unable to take PO IVF follow renal function vomiting NPO for now - no evidence of small-bowel obstruction on CT abdomen - antiemetics Patient declining. Had goals of care discussion with family with the use of a verification lead given critical illness involving multiple organ systems. Prognosis poor. Family wishes to have central line, pressors and intubation if necessary. BP decreasing despite IVF resuscitation, giving bolus now. Call placed to ICU, recommended to give albumin. Will reassess after albumin and plan to transfer to ICU if no improvement in BP. DVT prophylaxis: Heparin subQ HCP - daughter Tonia, HCP form in chart Attending: dr. Akhtar Quality Stroke Does the patient have a stroke diagnosis?: No VTE Prior VTE?: No VTE Risk Level:: Medical - moderate - high VTE Device Contraindication: Treatment Not Indicated VTE Drug Contraindication: N/A - Med Ordered
[2021-07-02] MEDS: Albumin Human 25 % 100 ML IV ×4 (11:34→17:05)
--- NOTE | 2021-07-02 15:04 | P.PNCC_ITS ---
Subjective Subjective Date of Service: 07/02/21 Interval History: 86-year-old gentleman with underlying history of CAD status post CABG, CVA, bed- bound, dementia, diabetes, hypertension, hypothyroidism admitted on 07/01/2021 with malaise. On ER evaluation patient was noted to have sepsis secondary to UTI with Gram-negative bacteremia. He has been started on broad-spectrum antibiotics and admitted [facility]. His hospital course was complicated by developing hypertension refractory to initial IV fluid and colloidal support requiring transfer to the intensive care unit on 07/02/2021. Critical Care Time (minutes): 45 Physical Exam Vital Signs: Vital Signs: Last Vital Signs Temp 98.8 F 07/02/21 13:31 Pulse 108 H 07/02/21 13:31 Resp 30 H 07/02/21 13:31 BP 92/44 L 07/02/21 14:09 Pulse Ox 97 07/02/21 13:31 Oxygen Flow Rate 2 07/01/21 16:57 BMI result Body Mass Index 22.4 Const: General: no acute distress and patient obtunded Orientation/consciousness: patient obtunded Neck: Neck: Yes no lymphadenopathy, Yes trachea midline and Yes supple Resp: Effort & Inspection: normal respiratory effort and no respiratory distress Auscultation: clear to auscultation bilaterally Cardio: Rate: tachycardic Rhythm: regular rhythm Heart sounds: no gallops, no murmurs and no rubs GI: Palpation (GI): Soft to palpation and Other GI palpation findings present ( Nontender) Auscultation: normal bowel sounds Neuro: General: patient obtunded Extrem: General: No clubbing, No cyanosis and Yes edema (Trace bilateral) Objective Data Labs CBC & Chem 7: 07/02/21 07:40 07/02/21 07:40 Labs: Laboratory Results - last 24 hr 07/01/21 07/01/21 07/01/21 17:19 17:27 17:27 WBC 23.0 H RBC 4.21 L Hgb 11.5 L Hct 37.2 L MCV 88.4 MCH 27.3 MCHC 30.9 L RDW 16.8 H Plt Count 324 MPV 10.6 Immature Gran % (Auto) 1.1 H Neut % (Auto) 95.1 H Lymph % (Auto) 1.9 L [place] % (Auto) 1.8 L Eos % (Auto) 0.0 Baso % (Auto) 0.1 Lymph # (Auto) 0.4 L [place] # (Auto) 0.4 Eos # (Auto) 0.0 Baso # (Auto) 0.0 Abs Immat Gran (auto) 0.25 H Absolute Neuts (auto) 21.9 H Absolute Nucleated RBC 0.000 Nucleated RBC % (auto) 0.0 Neutrophils % (Manual) Band Neutrophils % Monocytes % (Manual) Metamyelocytes % Abs Neuts (Manual) Monocytes # (Manual) Metamyelocytes # Toxic Vacuolation Platelet Estimate Plt Morphology Comment RBC Morphology Polychromasia Macrocytosis Donnell Cells Acanthocytes (Spur) Smear Tech's Comments VERIFIED Sodium 133 L Potassium 4.4 Chloride 97 Carbon Dioxide 21 L Anion Gap 19 BUN 39 H Creatinine 2.05 H Estim Creat Clear Calc 27.8 Estimated GFR 31 Random Glucose 226 H D Lactic Acid Lactic Acid F/U @ 2Hr Lactic Acid F/U @ 4Hr Calcium 10.9 H D Total Bilirubin 0.9 Direct Bilirubin 0.6 H AST 26 D ALT 22 Alkaline Phosphatase 94 Total Protein 6.5 Albumin 2.9 L D Urine Color Urine Appearance Urine pH Ur Specific [place] Urine Protein Urine Glucose (UA) Urine Ketones Urine Blood Urine Nitrite Ur Leukocyte Esterase Urine RBC Urine WBC Urine WBC Clumps Ur Squamous Epith Cells Amorphous Sediment Urine Bacteria Influenza Type A (PCR) NEGATIVE Influenza Type B (PCR) NEGATIVE RSV RNA Qual (PCR) NEGATIVE SARS-CoV-2 RNA (RT-PCR) NEGATIVE 07/01/21 07/01/21 07/01/21 17:27 20:36 20:36 WBC RBC Hgb Hct MCV MCH MCHC RDW Plt Count MPV Immature Gran % (Auto) Neut % (Auto) Lymph % (Auto) [place] % (Auto) Eos % (Auto) Baso % (Auto) Lymph # (Auto) [place] # (Auto) Eos # (Auto) Baso # (Auto) Abs Immat Gran (auto) Absolute Neuts (auto) Absolute Nucleated RBC Nucleated RBC % (auto) Neutrophils % (Manual) Band Neutrophils % Monocytes % (Manual) Metamyelocytes % Abs Neuts (Manual) Monocytes # (Manual) Metamyelocytes # Toxic Vacuolation Platelet Estimate Plt Morphology Comment RBC Morphology Polychromasia Macrocytosis [place] Cells Acanthocytes (Spur) Smear Tech's Comments Sodium Potassium Chloride Carbon Dioxide Anion Gap BUN Creatinine Estim Creat Clear Calc Estimated GFR Random Glucose Lactic Acid 8.2 H* Lactic Acid F/U @ 2Hr 7.2 H* Lactic Acid F/U @ 4Hr Calcium Total Bilirubin Direct Bilirubin AST ALT Alkaline Phosphatase Total Protein Albumin Urine Color YELLOW Urine Appearance CLEAR Urine pH >= 9.0 H Ur Specific [place] <= 1.005 Urine Protein 2+ H Urine Glucose (UA) NEG Urine Ketones NEG Urine Blood NEG Urine Nitrite NEG Ur Leukocyte Esterase 3+ H Urine RBC 0-2 Urine WBC 5-9 H Urine WBC Clumps NOTED Ur Squamous Epith Cells NONE Amorphous Sediment 3+ Urine Bacteria 2+ Influenza Type A (PCR) Influenza Type B (PCR) RSV RNA Qual (PCR) SARS-CoV-2 RNA (RT-PCR) 07/01/21 07/02/21 07/02/21 23:25 07:40 07:40 WBC 37.3 H* RBC 3.71 L Hgb 10.2 L Hct 32.6 L MCV 87.9 MCH 27.5 MCHC 31.3 RDW 17.0 H Plt Count 235 D MPV 11.6 Immature Gran % (Auto) Cancelled Neut % (Auto) Cancelled Lymph % (Auto) Cancelled [place] % (Auto) Cancelled Eos % (Auto) Cancelled Baso % (Auto) Cancelled Lymph # (Auto) Cancelled [place] # (Auto) Cancelled Eos # (Auto) Cancelled Baso # (Auto) Cancelled Abs Immat Gran (auto) Cancelled Absolute Neuts (auto) Cancelled Absolute Nucleated RBC 0.000 Nucleated RBC % (auto) 0.0 Neutrophils % (Manual) 56 Band Neutrophils % 40 H Monocytes % (Manual) 1 L Metamyelocytes % 3 Abs Neuts (Manual) 35.8 H Monocytes # (Manual) 0.4 Metamyelocytes # 1.1 Toxic Vacuolation PRESENT Platelet Estimate NORMAL Plt Morphology Comment NORMAL RBC Morphology NOTED Polychromasia 1+ (0-2) Macrocytosis 1+ (5-14) Donnell Cells 2+ (3-5) Acanthocytes (Spur) 1+ (0-2) Smear Tech's Comments Sodium 135 Potassium 5.7 H D Chloride 105 Carbon Dioxide 16 L Anion Gap 20 BUN 52 H Creatinine 2.51 H Estim Creat Clear Calc 22.7 Estimated GFR 25 Random Glucose 138 H D Lactic Acid Lactic Acid F/U @ 2Hr Lactic Acid F/U @ 4Hr 6.2 H* Calcium 9.2 D Total Bilirubin Direct Bilirubin AST ALT Alkaline Phosphatase Total Protein Albumin Urine Color Urine Appearance Urine pH Ur Specific [place] Urine Protein Urine Glucose (UA) Urine Ketones Urine Blood Urine Nitrite Ur Leukocyte Esterase Urine RBC Urine WBC Urine WBC Clumps Ur Squamous Epith Cells Amorphous Sediment Urine Bacteria Influenza Type A (PCR) Influenza Type B (PCR) RSV RNA Qual (PCR) SARS-CoV-2 RNA (RT-PCR) Microbiology Microbiology Results: Microbiology 07/01/21 Unknown Urine clean catch - Urine bass top Urine Culture - Preliminary Culture in progress. 07/01/21 17:28 Blood - Venous Blood Culture - Preliminary Prelim: GNR Gram Stain only 07/01/21 17:24 Blood - Venous Blood Culture - Preliminary Prelim: GNR Gram Stain only Prelim: GPC Gram Stain only Progress Note: A&P Assessment and plan (1) Gram-negative bacteremia: Status: Acute (2) Septic shock: Status: Acute (3) STAR (acute kidney injury): Status: Acute (4) UTI (urinary tract infection): Status: Acute (5) CVA (cerebral vascular accident): Status: Acute (6) Coronary artery disease: Status: Acute (7) Dementia: Status: Acute (8) Diabetes: Status: Acute Plan Assessment: 86-year-old gentleman bed-bound with underlying CABG and CVA admitted with septic shock secondary to Gram-negative bacteremia with source Plan: Neuro: No acute issues. Cardiac: Septic shock with poor response to initial IV fluid and colloidal support. May require pressors. Pulmonary: No acute issues. Renal: Acute kidney failure secondary to UTI with Gram-negative bacteremia. Non oliguric. Continue to monitor renal indices and urine output. Endo: No acute issues. GI: No acute issues. ID: Gram-negative bacteremia, continue on empiric Zosyn. Cultures are pending. Heme/Onc: Hematuria, likely secondary to traumatic Marino placement. Psych: No acute issues. Miscellaneous: No acute issues. Prophylaxis: Intermittent pneumatic compression Diet: NPO Critical care time spent: 45 minutes Quality Stroke Does the patient have a stroke diagnosis?: No VTE Prior VTE?: No VTE Risk Level:: Medical - moderate - high VTE Device Contraindication: Treatment Not Indicated VTE Drug Contraindication: N/A - Med Ordered
[2021-07-02] MEDS: 0.9 % Sodium Chloride Flush 3 ML SYRINGE IVFLUSH (17:05)
--- NOTE | 2021-07-02 17:39 | PC.NURSE ---
Received to ICU form ER 1700 Patient DNR, septic with urinary source. Marino present, placed be Dr. Worrell Urine bloody. IV Albumin and Zosyn hung as ordered. BP 85/48 with MAP 62 Levophed ordered if MAP sustains 50s Wounds noted, photgraphed for documentation. Wound RN consulted. Dressing to coccyx/buttocks. Non-verbal, bedbound. Airloss mattress in use. Electrical Calibrator consulted. Awaiting family from [place].
--- NOTE | 2021-07-02 17:49 | PM.UROCN ---
History of Present Illness Consult details Consult date: 07/02/21 Narrative: 86-year-old male Admitted with confusion and question of poor urine output Marino catheter had been placed last week by [facility] Attempt to flush catheter and catheter appeared to be blocked Marino catheter removed and new catheter placed 1600 cc obtained from bladder Catheter irrigated easily Catheter should remain through discharge. He can follow up with [facility] after discharge Review of Systems Constitutional: Constitutional: Reports as per HPI and Reports no additional constitutional complaints Cardiovascular: Cardiovascular: Reports as per HPI and Reports no additional cardiovascular complaints Respiratory: Respiratory: Reports as per HPI and Reports no additional respiratory complaints Gastrointestinal: Gastrointestinal: Reports as per HPI and Reports no additional gastrointestinal complaints Genitourinary: Genitourinary: Reports as per HPI Musculoskeletal: Musculoskeletal: Reports no additional musculoskeletal complaints and Reports as per HPI Neurologic: Reports system reviewed and no additional complaints, except as documented and Reports as per HPI PMFSH Past Medical History Medical History (Updated 07/02/21 @ 17:50 by Sam Worrell MD) BPH (benign prostatic hyperplasia) Coronary artery disease CVA (cerebral vascular accident) Dementia Diabetes Gout HTN (hypertension) Hypothyroidism Family History Family History (Updated 07/02/21 @ 07:01 by Kelly Barakat MD) Other No family history of coronary artery disease Surgical History Surgical History Hx of CABG Social History Social History Household Members: Unknown / Unable to assess Housing: Unknown / Unable to assess Do you presently have visiting nurse or other home services: No Unable to assess alcohol history related to: Unable to respond Alcohol intake: current Patient Tobacco Use Status: Never used Tobacco Advance Directives Date on File: 07/02/21 Meds Allergies Allergy/AdvReac Type Severity Reaction Status Date / Time No Known Allergies Allergy Mild NONE Verified 04/03/20 23:07 Active Medications: Current Medications Acetaminophen (Acetaminophen Supp 650 Mg Supp.Rect) 650 mg AR Q6H PRN PRN Reason: Pain, Mild (Pain Scale 1-3) Last Admin: 07/02/21 04:40 Dose: 650 mg Documented by: Piperacillin Sod/Tazobactam (Sod 3.375 gm/ Sodium Chloride) 50 mls @ 100 mls/hr IV Q6H [facility] Last Admin: 07/02/21 17:06 Dose: 100 mls/hr Documented by: Norepinephrine Bitartrate (Levophed) 8 mg in 250 mls @ 0 mls/hr IVCONT .Q0M [facility]; Protocol Ondansetron HCl (Ondansetron Hcl 4 Mg/2 Ml Vial) 4 mg IVPUSH Q8H PRN PRN Reason: Nausea and Vomiting Last Admin: 07/02/21 04:44 Dose: 4 mg Documented by: Pharmacy Consult (Consult Rx Perform Med Rec) 1 each MISCELLANE ONCE PRN PRN Reason: Consult order Pharmacy Consult (Consult Rx Perform Med Rec) 1 each MISCELLANE ONCE PRN PRN Reason: Consult order Sodium Chloride (0.9 % Sodium Chloride Flush 3 Ml Syringe) 3 ml IVFLUSH QSHIFT [facility] Last Admin: 07/02/21 17:05 Dose: 3 ml Documented by: Home Medications Medication Instructions Recorded Confirmed Last Taken Type allopurinol 300 mg tablet 300 mg PO DAILY 04/03/20 07/01/21 Unknown History aspirin 81 mg tablet 81 mg PO DAILY 04/03/20 07/01/21 Unknown History metoprolol tartrate 25 mg tablet 25 mg PO BID 04/03/20 07/01/21 Unknown History tamsulosin 0.4 mg capsule 0.4 mg PO BEDTIME 04/03/20 07/01/21 Unknown History trazodone 50 mg tablet 25 mg PO BEDTIME 04/03/20 07/01/21 Unknown History acetaminophen 500 mg tablet 500 mg PO Q8H PRN 07/01/21 07/01/21 Unknown History amlodipine 2.5 mg tablet 1 tab PO DAILY 07/01/21 07/01/21 Unknown History docusate sodium 100 mg capsule 1 cap PO BID 07/01/21 07/01/21 Unknown History insulin lispro 100 unit/mL See Rx Instructions .ROUTE .COMPLEX 07/01/21 07/01/21 Unknown History subcutaneous pen latanoprost 0.005 % eye drops 1 drp OPHTHALMIC (EYE) DAILY 07/01/21 07/01/21 Unknown History levothyroxine 75 mcg tablet 1 tab PO DAILY 07/01/21 07/01/21 Unknown History pantoprazole 40 mg tablet,delayed 1 tab PO DAILY 07/01/21 07/01/21 Unknown History release thiamine HCl (vitamin B1) 100 mg 1 tab PO DAILY 07/01/21 07/01/21 Unknown History tablet Physical Exam Vital Signs: Vital Signs: Last Vital Signs Temp 97.7 F 07/02/21 17:17 Pulse 99 07/02/21 17:17 Resp 30 H 07/02/21 17:17 BP 85/48 L 07/02/21 17:17 Pulse Ox 100 07/02/21 17:17 Oxygen Flow Rate 2 07/01/21 16:57 BMI result Body Mass Index 22.4 Const: General: cooperative, healthy appearing, comfortable and no acute distress Orientation/consciousness: patient oriented x3 HENMT: Face and sinus: Yes normal facial exam Mouth: moist mucous membranes Neck: Neck: Yes normal visual inspection, Yes full ROM and Yes trachea midline Chest: Chest palpation & inspection: normal inspection of the chest Resp: Effort & Inspection: normal respiratory effort, able to speak in complete sentences and no respiratory distress GI: Inspection: Yes normal to inspection Back/Spine/Pelvis: Cervical Spine: normal cervical lordosis Thoracic/Lumbar Spine: thoracic and lumbar spine normal to inspection Skin: General skin exam: no rashes or lesions noted Neuro: General: patient oriented x3, tone normal and moves all extremities Extrem: General: Yes normal to inspection and Yes capillary refill normal Results Labs Result diagrams: 07/02/21 07:40 07/02/21 07:40 Labs: Abnormal lab results 07/01/21 07/01/21 07/01/21 Range/Units 17:27 17:27 17:27 WBC 23.0 H (4.8-10.8) X10*3/uL RBC 4.21 L (4.60-5.80) X10*6/uL Hgb 11.5 L (14.0-18.0) g/dl Hct 37.2 L (42.0-52.0) % MCHC 30.9 L (31.0-36.0) g/dl RDW 16.8 H (11.0-16.0) % Immature Gran % (Auto) 1.1 H (0.0-0.4) % Neut % (Auto) 95.1 H (45-73) % Lymph % (Auto) 1.9 L (20-40) % [place] % (Auto) 1.8 L (2-11) % Lymph # (Auto) 0.4 L (1.2-4.9) X10*3/uL Abs Immat Gran (auto) 0.25 H (0.00-0.03) X10*3/uL Absolute Neuts (auto) 21.9 H (2.0-8.3) x10*3/uL Band Neutrophils % (3-5) % Monocytes % (Manual) (2-11) % Abs Neuts (Manual) (2.0-8.3) X10*3/uL Sodium 133 L (135-145) mmol/L Potassium (3.3-5.1) mmol/L Carbon Dioxide 21 L (22-29) mmol/L BUN 39 H (9-16) mg/dL Creatinine 2.05 H (0.5-1.4) mg/dL Random Glucose 226 H D (60-115) mg/dL Lactic Acid 8.2 H* (0.5-2.0) mmol/L Lactic Acid F/U @ 2Hr (0.5-2.0) mmol/L Lactic Acid F/U @ 4Hr (0.5-2.0) mmol/L Calcium 10.9 H D (8.4-10.2) mg/dL Direct Bilirubin 0.6 H (0.0-0.5) mg/dL Albumin 2.9 L D (3.5-5.0) g/dL Urine pH (5.0-8.0) Urine Protein (NEG-TRACE) MG/DL Ur Leukocyte Esterase (NEG) Urine WBC (0-4) /HPF 07/01/21 07/01/21 07/01/21 Range/Units 20:36 20:36 23:25 WBC (4.8-10.8) X10*3/uL RBC (4.60-5.80) X10*6/uL Hgb (14.0-18.0) g/dl Hct (42.0-52.0) % MCHC (31.0-36.0) g/dl RDW (11.0-16.0) % Immature Gran % (Auto) (0.0-0.4) % Neut % (Auto) (45-73) % Lymph % (Auto) (20-40) % [place] % (Auto) (2-11) % Lymph # (Auto) (1.2-4.9) X10*3/uL Abs Immat Gran (auto) (0.00-0.03) X10*3/uL Absolute Neuts (auto) (2.0-8.3) x10*3/uL Band Neutrophils % (3-5) % Monocytes % (Manual) (2-11) % Abs Neuts (Manual) (2.0-8.3) X10*3/uL Sodium (135-145) mmol/L Potassium (3.3-5.1) mmol/L Carbon Dioxide (22-29) mmol/L BUN (9-16) mg/dL Creatinine (0.5-1.4) mg/dL Random Glucose (60-115) mg/dL Lactic Acid (0.5-2.0) mmol/L Lactic Acid F/U @ 2Hr 7.2 H* (0.5-2.0) mmol/L Lactic Acid F/U @ 4Hr 6.2 H* (0.5-2.0) mmol/L Calcium (8.4-10.2) mg/dL Direct Bilirubin (0.0-0.5) mg/dL Albumin (3.5-5.0) g/dL Urine pH >= 9.0 H (5.0-8.0) Urine Protein 2+ H (NEG-TRACE) MG/DL Ur Leukocyte Esterase 3+ H (NEG) Urine WBC 5-9 H (0-4) /HPF 07/02/21 07/02/21 Range/Units 07:40 07:40 WBC 37.3 H* (4.8-10.8) X10*3/uL RBC 3.71 L (4.60-5.80) X10*6/uL Hgb 10.2 L (14.0-18.0) g/dl Hct 32.6 L (42.0-52.0) % MCHC (31.0-36.0) g/dl RDW 17.0 H (11.0-16.0) % Immature Gran % (Auto) (0.0-0.4) % Neut % (Auto) (45-73) % Lymph % (Auto) (20-40) % [place] % (Auto) (2-11) % Lymph # (Auto) (1.2-4.9) X10*3/uL Abs Immat Gran (auto) (0.00-0.03) X10*3/uL Absolute Neuts (auto) (2.0-8.3) x10*3/uL Band Neutrophils % 40 H (3-5) % Monocytes % (Manual) 1 L (2-11) % Abs Neuts (Manual) 35.8 H (2.0-8.3) X10*3/uL Sodium (135-145) mmol/L Potassium 5.7 H D (3.3-5.1) mmol/L Carbon Dioxide 16 L (22-29) mmol/L BUN 52 H (9-16) mg/dL Creatinine 2.51 H (0.5-1.4) mg/dL Random Glucose 138 H D (60-115) mg/dL Lactic Acid (0.5-2.0) mmol/L Lactic Acid F/U @ 2Hr (0.5-2.0) mmol/L Lactic Acid F/U @ 4Hr (0.5-2.0) mmol/L Calcium (8.4-10.2) mg/dL Direct Bilirubin (0.0-0.5) mg/dL Albumin (3.5-5.0) g/dL Urine pH (5.0-8.0) Urine Protein (NEG-TRACE) MG/DL Ur Leukocyte Esterase (NEG) Urine WBC (0-4) /HPF Short CBC 07/01/21 07/02/21 Range/Units 17:27 07:40 WBC 23.0 H 37.3 H* (4.8-10.8) X10*3/uL Hgb 11.5 L 10.2 L (14.0-18.0) g/dl Hct 37.2 L 32.6 L (42.0-52.0) % Plt Count 324 235 D (160-400) X10*3/uL BMP 07/01/21 07/02/21 17:27 07:40 Sodium 133 L 135 Potassium 4.4 5.7 H D Chloride 97 105 Carbon Dioxide 21 L 16 L BUN 39 H 52 H Creatinine 2.05 H 2.51 H Calcium 10.9 H D 9.2 D Liver Function 07/01/21 Range/Units 17:27 Total Bilirubin 0.9 (0.0-1.0) mg/dL Direct Bilirubin 0.6 H (0.0-0.5) mg/dL AST 26 D (5-37) U/L ALT 22 (0-40) U/L Alkaline Phosphatase 94 (39-117) U/L Albumin 2.9 L D (3.5-5.0) g/dL Urine 07/01/21 Range/Units 20:36 Urine Color YELLOW Urine Appearance CLEAR Urine pH >= 9.0 H (5.0-8.0) Ur Specific [place] <= 1.005 (1.005-1.025) Urine Protein 2+ H (NEG-TRACE) MG/DL Urine Glucose (UA) NEG (NEG) MG/DL All other labs normal. Assessment and Plan (1) Urinary retention: Status: Acute (2) STAR (acute kidney injury): Status: Acute Plan catheter to remain Follow-up with external urologist after discharge Procedures Date of Service Date of Service: 07/02/21 Catheter Insertion (Urinary) Date of insertion: 07/02/21 Replacement of catheter present on admission: Yes Reason for placing: Acute urinary retention Estimated amount of urine (mLs): 1,600 Catheter type/location: 2-way Urethral Size (Lao): 18 Catheter balloon size (mL): 10 Results: successfully catheterized-immediate flow Procedure performed: without complications
[2021-07-03] VITALS (25 sets, daily range): BP systolic 91–111; BP diastolic 43–66; PULSE 85–150; RESP 12–33; TEMP 36.1–38.6; O2SAT 93–100; BMI 18.7
[2021-07-03] MEDS: Piperacillin Sodium/Tazobactam 3.375 GM in 0.9 % Sodium Chloride 50 ML IV ×4 (04:31→23:50)
[2021-07-03] MEDS: 0.9 % Sodium Chloride Flush 3 ML SYRINGE IVFLUSH ×2 (09:36→18:12)
[2021-07-03 09:57] LABS: Hematocrit 26.3 % (42.0-52.0); Hemoglobin 8.4 g/dl (14.0-18.0); Mean Corpuscular HGB Conc 31.9 g/dl (31.0-36.0); Mean Corpuscular Volume 87.7 fL (80.0-98.0); Mean Platelet Volume 11.5 fL (9.4-12.4); Platelet Count 151 X10*3/uL (160-400); Red Cell Distribution Width 17.1 % (11.0-16.0); White Blood Count 24.1 X10*3/uL (4.8-10.8)
[2021-07-03 10:19] LABS: Anion Gap 16 (12-20); Blood Urea Nitrogen 53 mg/dL (9-16); Carbon Dioxide 20 mmol/L (22-29); Chloride 112 mmol/L (96-108); Estimated Glomerular Filt Rate 32; Glucose Random 77 mg/dL (60-115); Magnesium 1.9 mg/dL (1.6-2.6); Phosphorus 3.2 mg/dL (2.7-4.5); Potassium 4.4 mmol/L (3.3-5.1); Sodium 144 mmol/L (135-145)
[2021-07-03 10:30] LABS: Band Neutrophils Percent 20 % (3-5); Lymphocytes Absolute Manual 0.5 X10*3/uL (1.2-4.9); Lymphocytes Percent Manual 2 % (20-40); Monocytes Absolute Manual 0.2 X10*3/uL (0.1-1.2); Monocytes Percent Manual 1 % (2-11); Neutrophils Absolute Manual 23.4 X10*3/uL (2.0-8.3); Neutrophils Percent Manual 77 % (45-73)
[2021-07-03 10:31] LABS: RBC Morphology NOTED
[2021-07-03 10:32] LABS: Acanthocytes 1+ (0-2) /OIF; Ovalocytes 1+ (5-14) /OIF; Schistocytes 1+ (0-2) /OIF
[2021-07-03 10:33] LABS: Dohle Bodies PRESENT; Platelet Estimate SLIGHTLY DECREASED (NORMAL); Platelet Morphology Comment NOTED
--- NOTE | 2021-07-03 11:33 | PM.CCPN ---
Subjective Subjective Date of Service: 07/03/21 Interval History: 86-year-old gentleman with underlying history of CAD status post CABG, CVA, bed-bound, dementia, diabetes, hypertension, hypothyroidism admitted on 07/01/2021 with malaise. On ER evaluation patient was noted to have sepsis secondary to UTI with Gram-negative bacteremia. He has been started on broad-spectrum antibiotics and admitted [facility]. His hospital course was complicated by developing hypotension refractory to initial IV fluid and colloidal support requiring transfer to the intensive care unit on 07/02/2021. No events overnight. Did not require pressors. Acute kidney injury improving. Critical Care Time (minutes): 0 Physical Exam Vital Signs: Vital Signs: Last Vital Signs Temp 97.0 F 07/03/21 08:00 Pulse 97 07/03/21 11:00 Resp 19 07/03/21 11:00 BP 98/58 L 07/03/21 11:00 Pulse Ox 96 07/03/21 11:00 Oxygen Flow Rate 2 07/01/21 16:57 BMI result Body Mass Index 18.7 Const: General: no acute distress and patient obtunded Orientation/consciousness: patient obtunded Neck: Neck: Yes no lymphadenopathy, Yes trachea midline and Yes supple Resp: Effort & Inspection: normal respiratory effort and no respiratory distress Auscultation: clear to auscultation bilaterally Cardio: Rate: tachycardic Rhythm: regular rhythm Heart sounds: no gallops, no murmurs and no rubs GI: Inspection: Yes G-tube present Palpation (GI): Soft to palpation and Other GI palpation findings present ( Nontender) Auscultation: normal bowel sounds Neuro: General: patient obtunded Extrem: General: No clubbing, No cyanosis and Yes edema (Trace bilateral) Objective Data Labs CBC & Chem 7: 07/03/21 09:30 07/03/21 09:30 Labs: Laboratory Results - last 24 hr 07/02/21 07/03/21 07/03/21 07:40 09:30 09:30 WBC 24.1 H RBC 3.00 L Hgb 8.4 L Hct 26.3 L MCV 87.7 MCH 28.0 MCHC 31.9 RDW 17.1 H Plt Count 151 L D MPV 11.5 Immature Gran % (Auto) Cancelled Neut % (Auto) Cancelled Lymph % (Auto) Cancelled [place] % (Auto) Cancelled Eos % (Auto) Cancelled Baso % (Auto) Cancelled Lymph # (Auto) Cancelled [place] # (Auto) Cancelled Eos # (Auto) Cancelled Baso # (Auto) Cancelled Abs Immat Gran (auto) Cancelled Absolute Neuts (auto) Cancelled Absolute Nucleated RBC 0.000 Nucleated RBC % (auto) 0.0 Neutrophils % (Manual) 77 H Band Neutrophils % 20 H Lymphocytes % (Manual) 2 L Monocytes % (Manual) 1 L Abs Neuts (Manual) 23.4 H Lymphocytes # (Manual) 0.5 L Monocytes # (Manual) 0.2 Dohle Bodies PRESENT Platelet Estimate SLIGHTLY DECREASED Plt Morphology Comment NOTED RBC Morphology NOTED Ovalocytes 1+ (5-14) Acanthocytes (Spur) 1+ (0-2) Schistocytes 1+ (0-2) Smear Path Review SEE NOTE Sodium 144 Potassium 4.4 D Chloride 112 H Carbon Dioxide 20 L Anion Gap 16 BUN 53 H Creatinine 1.99 H Estim Creat Clear Calc 24.0 Estimated GFR 32 Random Glucose 77 D Calcium 10.0 D Phosphorus 3.2 Magnesium 1.9 Microbiology Microbiology Results: Microbiology 07/01/21 17:28 Blood - Venous Blood Culture - Preliminary Prelim: GNR Gram Stain only 07/01/21 17:24 Blood - Venous Blood Culture - Preliminary Prelim: GNR Gram Stain only Prelim: GPC Gram Stain only 07/01/21 Unknown Urine clean catch - Urine bass top Urine Culture - Final Progress Note: A&P Assessment and plan (1) Dementia: Status: Acute (2) Diabetes: Status: Acute (3) Coronary artery disease: Status: Acute (4) CVA (cerebral vascular accident): Status: Acute (5) Gram-negative bacteremia: Status: Acute (6) STAR (acute kidney injury): Status: Acute (7) UTI (urinary tract infection): Status: Acute Plan Assessment: 86-year-old gentleman bed-bound with underlying CABG and CVA admitted with septic shock secondary to Gram-negative bacteremia with source Plan: Neuro: No acute issues. Cardiac: No acute issues. Pulmonary: No acute issues. Renal: Acute kidney failure secondary to UTI with Gram-negative bacteremia, improving Non oliguric. Continue to monitor renal indices and urine output. Endo: No acute issues. Underlying diabetes mellitus. GI: No acute issues. ID: Gram-negative bacteremia, continue on empiric Zosyn. Cultures are pending. Heme/Onc: Hematuria, likely secondary to traumatic Marino placement, improving Psych: No acute issues. Miscellaneous: No acute issues. Prophylaxis: Intermittent pneumatic compression Diet: Tube feeds Quality Stroke Does the patient have a stroke diagnosis?: No VTE Prior VTE?: No VTE Risk Level:: Medical - moderate - high VTE Device Contraindication: Treatment Not Indicated VTE Drug Contraindication: N/A - Med Ordered
[2021-07-03] MEDS: Acetaminophen Supp 650 MG SUPP.RECT PR (19:45)
[2021-07-04] VITALS (17 sets, daily range): BP systolic 87–128; BP diastolic 40–71; PULSE 92–130; RESP 23–36; TEMP 36.5–37.2; O2SAT 94–97; BMI 19.5
--- NOTE | 2021-07-04 | ECG_ITS ---
Test Reason : cp Blood Pressure : / mmHG Vent. Rate : 129 BPM Atrial Rate : 000 BPM P-R Int : 000 ms QRS Dur : 084 ms QT Int : 264 ms P-R-T Axes : 000 054 068 degrees QTc Int : 386 ms Atrial fibrillation with rapid ventricular response Nonspecific T wave abnormality Abnormal ECG When compared with ECG of 01-JUL-2021 17:12, Atrial fibrillation has replaced Sinus rhythm Nonspecific T wave abnormality now evident in Inferior leads Referred By: Elizabeth Workman Electronically Signed By:YAHAIRA GONZALEZ MD
[2021-07-04] MEDS: 0.9 % Sodium Chloride Flush 3 ML SYRINGE IVFLUSH ×4 (01:26→22:50)
--- NOTE | 2021-07-04 01:58 | PM.SEPSIS ---
Sepsis Event Note Evaluation Sepsis screening result: Possible Sepsis Risk Current stage of sepsis: severe sepsis Focused Exam Vital signs: Vital Signs Temp Pulse Resp BP Pulse Ox 07/04/21 01:00 97.7 F 113 H 36 H 91/44 L 96 07/04/21 00:00 120 H 27 H 87/40 L 94 07/03/21 23:41 101.5 F H 150 H 07/03/21 23:00 104 H 28 H 91/43 L 93 07/03/21 22:00 106 H 27 H 96/46 L 94 07/03/21 21:00 112 H 28 H 94/45 L 94 07/03/21 20:00 99.8 F 113 H 29 H 95/52 L 93 07/03/21 19:00 110 H 33 H 111/51 L 93 07/03/21 18:00 107 H 25 H 106/52 L 95 07/03/21 17:00 105 H 23 H 101/53 L 94 07/03/21 16:00 98.6 F 105 H 28 H 96/49 L 95 07/03/21 15:00 103 H 21 H 100/52 L 95 07/03/21 14:00 103 H 20 110/59 L 94 Respiratory exam: Present respiratory distress Cardiovascular exam: tachycardia Capillary refill: < 2 Seconds Peripheral pulse strength: 3+ Normal Peripheral pulse location: Radial Skin exam: pallor Date exam was performed: 07/01/21 Time exam was performed: 23:00 Problem List (1) Dementia: Status: Acute (2) Diabetes: Status: Acute (3) Coronary artery disease: Status: Acute (4) CVA (cerebral vascular accident): Status: Acute (5) Gram-negative bacteremia: Status: Acute (6) STAR (acute kidney injury): Status: Acute (7) UTI (urinary tract infection): Status: Acute
[2021-07-04] MEDS: Digoxin 0.25 MG TABLET PO (02:09)
[2021-07-04 05:27] LABS: VBG Base Excess -1.1 mmol/L; VBG HCO3 21 mmol/L (22-26); VBG pCO2 30 mmHg; VBG pH 7.46 (7.32-7.43); VBG pO2 64 mmHg
[2021-07-04] MEDS: Piperacillin Sodium/Tazobactam 3.375 GM in 0.9 % Sodium Chloride 50 ML IV ×4 (05:30→22:49)
--- NOTE | 2021-07-04 05:48 | PC.NURSE ---
Patient converted to Afib HR in the 130's at 2215 on 07/03. Provider notified, confirmed by EKG. Digoxin 0.25 ordered/ administered. Patient asymptomatic. At 0430 patient has converted bAck to NSR/ST, HR 96- low 100's. Patient resting comfortably at present. Will continue to monitor.
[2021-07-04 06:02] LABS: MANUAL DIFF FLAG NO
[2021-07-04 06:05] LABS: Basophils Percent Auto 0.2 % (0-2); Eosinophils Absolute Auto 0.2 X10*3/uL (0.0-0.4); Eosinophils Percent Auto 0.8 % (0-4); Hematocrit 25.1 % (42.0-52.0); Hemoglobin 7.9 g/dl (14.0-18.0); Imm Gran Pct Auto 0.5 % (0.0-0.4); Lymphocytes Absolute Auto 1.1 X10*3/uL (1.2-4.9); Lymphocytes Percent Auto 5.5 % (20-40); Mean Corpuscular HGB Conc 31.5 g/dl (31.0-36.0); Mean Corpuscular Hemoglobin 27.3 pg (27.0-33.0); Mean Corpuscular Volume 86.9 fL (80.0-98.0); Mean Platelet Volume 11.6 fL (9.4-12.4); Monocytes Absolute Auto 0.7 X10*3/uL (0.1-1.2); Monocytes Percent Auto 3.4 % (2-11); Neutrophils Absolute Auto 18.2 x10*3/uL (2.0-8.3); Neutrophils Percent Auto 89.6 % (45-73); Platelet Count 172 X10*3/uL (160-400); Red Blood Count 2.89 X10*6/uL (4.60-5.80); Red Cell Distribution Width 16.9 % (11.0-16.0); White Blood Count 20.4 X10*3/uL (4.8-10.8)
[2021-07-04 06:14] LABS: Venous Blood Gas Refer to POC result
[2021-07-04 06:25] LABS: Anion Gap 15 (12-20); Blood Urea Nitrogen 49 mg/dL (9-16); Calcium 9.8 mg/dL (8.4-10.2); Carbon Dioxide 22 mmol/L (22-29); Chloride 114 mmol/L (96-108); Creatinine Clr Calc Pharmacy 31.1; Estimated Glomerular Filt Rate 41; Glucose Random 158 mg/dL (60-115); Phosphorus 2.4 mg/dL (2.7-4.5); Potassium 3.5 mmol/L (3.3-5.1); Sodium 147 mmol/L (135-145)
[2021-07-04] MEDS: Potassium Phosphate/NS 15 MMOL/250 ML PLAST..BAG 62.5 MMOL IV ×2 (07:47→14:02)
[2021-07-04] MEDS: Albumin Human 25 % 100 ML IV ×3 (09:00→20:33)
--- NOTE | 2021-07-04 10:08 | PHA.PROG ---
Admission Date/Time: July 01, 2021 22:22 Indication: Weight in k.6 kg Adjusted body weight in Kg: [place] body weight in Kg: Obesity Dosing Indication % IBW: Serum Creatinine - Last 168 Hours 07/01/21 07/02/21 07/03/21 17:27 07:40 09:30 Creatinine 2.05 H 2.51 H 1.99 H 07/04/21 05:16 Creatinine 1.61 H Estimated CrCl and GFR - Last 168 Hours 07/01/21 07/02/21 07/03/21 17:27 07:40 09:30 Estim Creat Clear Calc 27.8 22.7 24.0 Estimated GFR 31 25 32 07/04/21 05:16 Estim Creat Clear Calc 31.1 Estimated GFR 41 Vancomycin Loading Dose: 1000 MG Current Vancomycin Dosing Regimen:750 MG Q24H Vancomycin Monitoring using AUC goal of 400 - 600 range with trough as surrogate marker: 457, TROUGH 15.1 Date and Time for next Vancomycin Level to be drawn:07/05 @0800 RANDOM Pharmacist Comments on Vancomycin Plan: using 15 mg/kg to load to reduce risk of kidney injury, level 07/05 @0800, to see where pt is therapeutically Vancomycin dosing will take advantage of SDI as a clinical decision support tool that uses Bayesian modeling to calculate individual patient's pharmacokinetic parameters and forecast the patient's drug concentration time course with the target goal AUC 24 range of 400 - 600 mg/L/hr.
[2021-07-04] MEDS: vancomycin HCL 1,000 MG in 0.9 % Sodium Chloride 250 ML 270 MG IV (11:27)
--- NOTE | 2021-07-04 11:49 | PM.CCPN ---
Subjective Subjective Date of Service: 07/04/21 Interval History: 86-year-old gentleman with underlying history of CAD status post CABG, CVA, bed-bound, dementia, diabetes, hypertension, hypothyroidism admitted on 07/01/2021 with malaise. On ER evaluation patient was noted to have sepsis secondary to UTI with Gram-negative bacteremia. He has been started on broad-spectrum antibiotics and admitted to [facility]. His hospital course was complicated by developing hypotension refractory to initial IV fluid and colloidal support requiring transfer to the intensive care unit on 07/02/2021. No events overnight. Critical Care Time (minutes): 0 Physical Exam Vital Signs: Vital Signs: Last Vital Signs Temp 98.0 F 07/04/21 08:00 Pulse 97 07/04/21 11:00 Resp 31 H 07/04/21 11:00 BP 110/57 L 07/04/21 11:00 Pulse Ox 96 07/04/21 11:00 Oxygen Flow Rate 2 07/01/21 16:57 BMI result Body Mass Index 19.5 Const: General: no acute distress and lethargic ( arousable) Orientation/consciousness: lethargic ( arousable) Eyes: Sclerae: sclerae normal EOM: EOMs intact bilaterally Neck: Neck: Yes no lymphadenopathy, Yes trachea midline and Yes supple Resp: Effort & Inspection: normal respiratory effort and no respiratory distress Auscultation: clear to auscultation bilaterally Cardio: Rate: tachycardic Rhythm: regular rhythm Heart sounds: no gallops, no murmurs and no rubs GI: Inspection: Yes G-tube present Palpation (GI): Soft to palpation and Other GI palpation findings present ( Nontender) Auscultation: normal bowel sounds Extrem: General: Yes no pedal edema, No clubbing and No cyanosis Objective Data Labs CBC & Chem 7: 07/04/21 05:16 07/04/21 05:16 Labs: Laboratory Results - last 24 hr 07/04/21 07/04/21 07/04/21 05:16 05:16 05:19 WBC 20.4 H RBC 2.89 L Hgb 7.9 L Hct 25.1 L MCV 86.9 MCH 27.3 MCHC 31.5 RDW 16.9 H Plt Count 172 MPV 11.6 Immature Gran % (Auto) 0.5 H Neut % (Auto) 89.6 H Lymph % (Auto) 5.5 L [place] % (Auto) 3.4 Eos % (Auto) 0.8 Baso % (Auto) 0.2 Lymph # (Auto) 1.1 L [place] # (Auto) 0.7 Eos # (Auto) 0.2 Baso # (Auto) 0.0 Abs Immat Gran (auto) 0.10 H Absolute Neuts (auto) 18.2 H Absolute Nucleated RBC 0.000 Nucleated RBC % (auto) 0.0 VBG pH 7.46 H VBG pCO2 30 VBG pO2 64 VBG HCO3 21 L VBG O2 Saturation 93.0 VBG Base Excess -1.1 Sodium 147 H Potassium 3.5 D Chloride 114 H Carbon Dioxide 22 Anion Gap 15 BUN 49 H Creatinine 1.61 H Estim Creat Clear Calc 31.1 Estimated GFR 41 Random Glucose 158 H D Calcium 9.8 Phosphorus 2.4 L Magnesium 2.0 Albumin 3.0 L Microbiology Microbiology Results: Microbiology 07/01/21 17:28 Blood - Venous Blood Culture - Preliminary Gram positive cocci Gram negative mathew Gram negative mathew#2 07/01/21 17:24 Blood - Venous Blood Culture - Preliminary Gram positive cocci Gram negative mathew Gram negative mathew#2 07/01/21 Unknown Urine clean catch - Urine bass top Urine Culture - Final Progress Note: A&P Assessment and plan (1) Urinary retention: Status: Acute (2) Dementia: Status: Acute (3) Diabetes: Status: Acute (4) Coronary artery disease: Status: Acute (5) CVA (cerebral vascular accident): Status: Acute (6) Gram-negative bacteremia: Status: Acute (7) STAR (acute kidney injury): Status: Acute Plan Assessment: 86-year-old gentleman bed-bound with underlying CABG and CVA admitted with septic shock secondary to Gram-negative bacteremia with source Plan: Neuro: No acute issues. Cardiac: No acute issues. did not require vasopressor support. Pulmonary: No acute issues. Renal: Acute kidney failure secondary to UTI with Gram-negative bacteremia, improving. Non oliguric. Continue to monitor renal indices and urine output. Endo: No acute issues. Underlying diabetes mellitus. GI: No acute issues. ID: Gram-negative bacteremia, continue on empiric Zosyn. Cultures are pending. Heme/Onc: Hematuria, likely secondary to traumatic Marino placement, improving . Psych: No acute issues. Miscellaneous: No acute issues. Prophylaxis: Intermittent pneumatic compression Diet: Tube feeds Quality Stroke Does the patient have a stroke diagnosis?: No VTE Prior VTE?: No VTE Risk Level:: Medical - moderate - high VTE Device Contraindication: Treatment Not Indicated VTE Drug Contraindication: N/A - Med Ordered
[2021-07-05] VITALS (10 sets, daily range): BP systolic 121–156; BP diastolic 64–82; PULSE 93–104; RESP 16–30; TEMP 36.6–37.4; O2SAT 93–96; BMI 19.5; BMI 21.9
[2021-07-05] MEDS: Albumin Human 25 % 100 ML IV (02:59)
[2021-07-05] MEDS: Piperacillin Sodium/Tazobactam 3.375 GM in 0.9 % Sodium Chloride 50 ML IV ×2 (04:53→10:36)
[2021-07-05 09:03] LABS: Hemoglobin 7.5 g/dl (14.0-18.0); Mean Corpuscular HGB Conc 31.3 g/dl (31.0-36.0); Mean Corpuscular Hemoglobin 27.3 pg (27.0-33.0); Mean Corpuscular Volume 87.3 fL (80.0-98.0); Mean Platelet Volume 12.2 fL (9.4-12.4); Platelet Count 160 X10*3/uL (160-400); Red Blood Count 2.75 X10*6/uL (4.60-5.80); Red Cell Distribution Width 17.3 % (11.0-16.0); White Blood Count 13.3 X10*3/uL (4.8-10.8)
[2021-07-05 09:05] LABS: Anion Gap 13 (12-20); Blood Urea Nitrogen 34 mg/dL (9-16); Calcium 10.1 mg/dL (8.4-10.2); Carbon Dioxide 24 mmol/L (22-29); Chloride 118 mmol/L (96-108); Estimated Glomerular Filt Rate 58; Glucose Random 192 mg/dL (60-115); Potassium 3.6 mmol/L (3.3-5.1); Sodium 151 mmol/L (135-145)
[2021-07-05] MEDS: vancomycin HCL 1,000 MG in 0.9 % Sodium Chloride 250 ML 270 MG IV (10:37)
[2021-07-05] MEDS: 0.9 % Sodium Chloride Flush 3 ML SYRINGE IVFLUSH ×2 (10:37→16:49)
--- NOTE | 2021-07-05 10:39 | P.PNIM_ITS ---
Subjective Subjective Date of Service: 07/05/21 Review of Systems Patient unable to provide any history due to mental status, hx of stroke Blood pressure and heart rate more stable today Review of Systems: Yes Unobtainable due to mental status Physical Exam Vital Signs: Vital Signs: Last Vital Signs Temp 97.7 F 07/04/21 20:00 Pulse 97 07/05/21 08:00 Resp 29 H 07/05/21 08:00 BP 133/70 07/05/21 08:00 Pulse Ox 95 07/05/21 08:00 Oxygen Flow Rate 2 07/01/21 16:57 BMI result Body Mass Index 19.5 Appearing in no acute distress Left eye ptosis lung sounds are clear to auscultation heart regular rate rhythm, clear S1, S2 positive bowel sounds, abdomen is soft, nontender neuro patient is alert, nonverbal soft boots for heals bilaterally Objective Data Active Medications Acetaminophen (Acetaminophen Supp 650 Mg Supp.Rect) 650 mg GA Q6H PRN PRN Reason: Pain, Mild (Pain Scale 1-3) Last Admin: 07/03/21 19:45 Dose: 650 mg Documented by: JEFFREY Piperacillin Sod/Tazobactam (Sod 3.375 gm/ Sodium Chloride) 50 mls @ 100 mls/hr IV Q6H [facility] Last Admin: 07/05/21 10:36 Dose: 100 mls/hr Documented by: DAYA Vancomycin HCl 1,000 mg/ (Sodium Chloride) 270 mls @ 270 mls/hr IV Q24H [facility] Last Admin: 07/05/21 10:37 Dose: 270 mls/hr Documented by: DAYA Ondansetron HCl (Ondansetron Hcl 4 Mg/2 Ml Vial) 4 mg IVPUSH Q8H PRN PRN Reason: Nausea and Vomiting Last Admin: 07/02/21 04:44 Dose: 4 mg Documented by: RD Pharmacy Consult (Consult Rx Perform Med Rec) 1 each MISCELLANE ONCE PRN PRN Reason: Consult order Pharmacy Consult (Consult Rx Perform Med Rec) 1 each MISCELLANE ONCE PRN PRN Reason: Consult order Sodium Chloride (0.9 % Sodium Chloride Flush 3 Ml Syringe) 3 ml IVFLUSH QSHIFT [facility] Last Admin: 07/05/21 10:37 Dose: 3 ml Documented by: HO.PINEAA Labs CBC & Chem 7: 07/05/21 07:47 07/05/21 07:47 Labs: Laboratory Results - last 24 hr 07/05/21 07/05/21 07/05/21 07:47 07:47 07:47 MCV 87.3 MCH 27.3 MCHC 31.3 RDW 17.3 H Plt Count 160 MPV 12.2 Absolute Nucleated RBC 0.000 Nucleated RBC % (auto) 0.0 Anion Gap 13 Estim Creat Clear Calc 42.0 Estimated GFR 58 Random Glucose 192 H Calcium 10.1 Random Vancomycin 9.0 L Blood Type Antibody Screen Crossmatch 07/05/21 09:53 MCV MCH MCHC RDW Plt Count MPV Absolute Nucleated RBC Nucleated RBC % (auto) Anion Gap Estim Creat Clear Calc Estimated GFR Random Glucose Calcium Random Vancomycin Blood Type A Positive Antibody Screen NEGATIVE Crossmatch See Detail Microbiology Microbiology Results: Microbiology 07/01/21 17:28 Blood Culture - Preliminary Blood - Venous Gram positive cocci Proteus mirabilis 07/01/21 17:24 Blood Culture - Final Blood - Venous Enterococcus faecalis Proteus mirabilis Assessment and Plan (1) Bacteremia: Status: Acute (2) STAR (acute kidney injury): Status: Acute (3) Severe sepsis: Status: Acute Plan 86-year-old male with past medical history of CVA, CAD who presents to the hospital found to have severe sepsis likely secondary to UTI Severe sepsis related to GPC, Proteus, enterococcus bacteremia secondary to UTI related to chronic [place]itting[place] . Sepsis resolved BP low despite IVF resuscitation; received 4.5L and getting another L bolus now; continue IVF, discussed with ICU, recommend albumin tachycardia, tachypnea, lactic acidosis, leukocytosis likely source is urine continue vancomycin and zosyn Discuss with ID STAR. Resolving renal function worsening. decreased UO likely secondary to sepsis IV fluids follow BMP Hyperkalemia. Resolved r/t to STAR unable to take PO IVF follow renal function vomiting. Resolved NPO for now no evidence of small-bowel obstruction on CT abdomen antiemetics DVT prophylaxis: Heparin subQ HCP - daughter ELI Randall form in chart Attending: Dr. Panda Quality Stroke Does the patient have a stroke diagnosis?: No VTE Prior VTE?: No VTE Risk Level:: Medical - moderate - high VTE Device Contraindication: Treatment Not Indicated VTE Drug Contraindication: N/A - Med Ordered
--- NOTE | 2021-07-05 10:44 | MHC.CLN ---
RE: CONSULT PT IS MODERATELY MALNOURISHED PT WITH MILDLY DEPLETED SUBCUTANEOUS FAT AND MUSCLE MASS WITH THE PRESENCE OF MULTIPLE PRESSURE INJURIES REQUIRING INCREASED KCALS/PROTEIN USED 5'8 ADMISSION HT PER PREVIOUS WT HX; CORRECTED BMI 21.9 WNL PREVIOUS WT HX 136# 09/2019 PT HAS PEG TUBE RECOMMEND PROMOTE AT MAX GOAL RATE 80ML/HR WITH 240ML FREE WATER TID TO PROVIDE 1920KCALS (30KCALS/KG), 120G PROTEIN (1.8G/KG) FOR WOUNDS, 2330ML TOTAL WATER FROM FORMULA AND FLUSHES (36ML/KG) R/T FEVERS PT WITH MULTPLE PRESSURE INJURIES REQUIRING INCREASED KCALS/PROTEIN NEEDS. TF FORMULA WILL PROMOTE WOUND HEALING MONITOR TOLERANCE, RESIDUALS AND LYTES SEE ALSO FULL CLINICAL NUTRITION ASSESSMENT
--- NOTE | 2021-07-05 14:02 | MHC.CM.PN ---
Pt is nigerian speaking only: suggested I contact his dtr Tonia with whom he resides: Call placed to Tonia using restaurant worker: Pt resides with her and her spouse who provide 12/12 care: Pt is active with [facility] for daily skilled RN visits. Pt has an adjustable bed, frank, w/c, and is in the process of obtaining a matthew chair. He uses [facility] for all transportation needs: PCP is Gail Sanders w/[facility], HCP on file and verified: IMM in chart. CM to follow
--- NOTE | 2021-07-05 14:25 | PC.NURSE ---
Addendum entered by Cele Lauren RN 07/05/21 14:37: Triad applied to left heel/ankle PU covered with foam. Original Note: Skin/Wound assessment completed. On admission, patient had a stage 2 PU to right buttock and stage 3 PU to left buttock, unstageable to left heel/ankle, and stage 1 to right ankle. Heel boots applied to bilateral feet, wounds left open to air. Silver alginate applied to buttock wounds covered by coccyx foam dressing.
--- NOTE | 2021-07-05 16:00 | W.PM.IDCN ---
History of Present Illness Data of Consult Service Date: 07/05/21 Requesting physician: Cindy Gray Primary Care Provider: Stevie Childers MD HPI Reason for consult: bacteremia,sepsis He presents from home with weakness and inability to take po. He has temperature to 104 and tachycardia. Blood cultures show proteus and enterococcus. Review of Systems Review of Systems: Yes Unobtainable due to mental status PMFSH Past Medical History Medical History BPH (benign prostatic hyperplasia) Coronary artery disease CVA (cerebral vascular accident) Dementia Diabetes Gout HTN (hypertension) Hypothyroidism Family History Family History Other No family history of coronary artery disease Family history: reviewed and not pertinent Surgical History Surgical History Hx of CABG Social History Social History Household Members: Unknown / Unable to assess Housing: Unknown / Unable to assess Do you presently have visiting nurse or other home services: No Unable to assess alcohol history related to: Unable to respond Alcohol intake: current Patient Tobacco Use Status: Never used Tobacco Advance Directives Date on File: 07/02/21 Current occupational status: disabled Meds Allergies Allergy/AdvReac Type Severity Reaction Status Date / Time No Known Allergies Allergy Mild NONE Verified 04/03/20 23:07 Active Medications: Current Medications Acetaminophen (Acetaminophen Supp 650 Mg Supp.Rect) 650 mg [place] Q6H PRN PRN Reason: Pain, Mild (Pain Scale 1-3) Last Admin: 07/03/21 19:45 Dose: 650 mg Documented by: Vancomycin HCl 1,000 mg/ (Sodium Chloride) 270 mls @ 270 mls/hr IV Q24H [facility] Last Infusion: 07/05/21 11:47 Dose: Infused Documented by: Ondansetron HCl (Ondansetron Hcl 4 Mg/2 Ml Vial) 4 mg IVPUSH Q8H PRN PRN Reason: Nausea and Vomiting Last Admin: 07/02/21 04:44 Dose: 4 mg Documented by: Pharmacy Consult (Consult Rx Perform Med Rec) 1 each MISCELLANE ONCE PRN PRN Reason: Consult order Pharmacy Consult (Consult Rx Perform Med Rec) 1 each MISCELLANE ONCE PRN PRN Reason: Consult order Sodium Chloride (0.9 % Sodium Chloride Flush 3 Ml Syringe) [facility] Last Admin: 07/05/21 10:37 Dose: 3 ml Documented by: Home Medications Medication Instructions Recorded Confirmed Last Taken Type allopurinol 300 mg tablet 300 mg PO DAILY 04/03/20 07/01/21 Unknown History aspirin 81 mg tablet 81 mg PO DAILY 04/03/20 07/01/21 Unknown History metoprolol tartrate 25 mg tablet 25 mg PO BID 04/03/20 07/01/21 Unknown History tamsulosin 0.4 mg capsule 0.4 mg PO BEDTIME 04/03/20 07/01/21 Unknown History trazodone 50 mg tablet 25 mg PO BEDTIME 04/03/20 07/01/21 Unknown History acetaminophen 500 mg tablet 500 mg PO Q8H PRN 07/01/21 07/01/21 Unknown History amlodipine 2.5 mg tablet 1 tab PO DAILY 07/01/21 07/01/21 Unknown History docusate sodium 100 mg capsule 1 cap PO BID 07/01/21 07/01/21 Unknown History insulin lispro 100 unit/mL See Rx Instructions .ROUTE .COMPLEX 07/01/21 07/01/21 Unknown History subcutaneous pen latanoprost 0.005 % eye drops 1 drp OPHTHALMIC (EYE) DAILY 07/01/21 07/01/21 Unknown History levothyroxine 75 mcg tablet 1 tab PO DAILY 07/01/21 07/01/21 Unknown History pantoprazole 40 mg tablet,delayed 1 tab PO DAILY 07/01/21 07/01/21 Unknown History release thiamine HCl (vitamin B1) 100 mg 1 tab PO DAILY 07/01/21 07/01/21 Unknown History tablet Physical Exam Vital Signs: Vital Signs: Last Vital Signs Temp 99.4 F 07/05/21 14:45 Pulse 96 07/05/21 14:45 Resp 21 H 07/05/21 14:45 BP 131/65 07/05/21 14:45 Pulse Ox 93 07/05/21 12:00 Oxygen Flow Rate 2 07/01/21 16:57 BMI result Body Mass Index 21.9 Const: General: cooperative Eyes: General: appearance normal, both eyes and all related structures Pupils: Equal, round and reactive pupils present Resp: Effort & Inspection: normal respiratory effort Cardio: Rate: regular rate Rhythm: regular rhythm GI: Palpation (GI): Soft to palpation and nontender Skin: General skin exam: no rashes or lesions noted Neuro: Cranial nerves: Yes Equal, round and reactive pupils present Extrem: Other: left heel open 3 cm wound Results Labs CBC & Chem 7: 07/05/21 07:47 07/05/21 07:47 Labs: Short CBC 07/05/21 Range/Units 07:47 WBC 13.3 H (4.8-10.8) X10*3/uL Hgb 7.5 L (14.0-18.0) g/dl Hct 24.0 L (42.0-52.0) % Plt Count 160 (160-400) X10*3/uL BMP 07/05/21 07:47 Sodium 151 H Potassium 3.6 Chloride 118 H Carbon Dioxide 24 BUN 34 H Creatinine 1.19 Calcium 10.1 Microbiology Microbiology Results: Microbiology 07/01/21 17:28 Blood - Venous Blood Culture - Preliminary Gram positive cocci Proteus mirabilis 07/01/21 17:24 Blood - Venous Blood Culture - Final Enterococcus faecalis Proteus mirabilis 07/01/21 Unknown Urine clean catch - Urine bass top Urine Culture - Final Assessment and Plan (1) Gram-negative bacteremia: Status: Acute (2) Septic shock: Status: Acute (3) Bacteremia: Status: Acute Likely source bacteremia is urine He has proteus and enterococcus Less likely source is heel,decubitus unremarkable on CT for osteomyelitis. (4) UTI (urinary tract infection): Status: Acute Plan Would continue Vancomycin for enterococcus now, but probably finish with po Linezolid total 21 d at home Would stop piperacillin/tazobactam and give IV Ceftriaxone for now,probably finish with po Ceftin at home to complete 21 d due to sepsis,septic shock concerns
[2021-07-05] MEDS: cefTRIAXone sodium 1 GM in 0.9 % Sodium Chloride 50 ML IV (16:45)
[2021-07-06] MEDS: 0.9 % Sodium Chloride Flush 3 ML SYRINGE IVFLUSH ×3 (00:39→15:14)
[2021-07-06 03:43] VITALS: BP 143/73; PULSE 97; RESP 18; TEMP 37; O2SAT 97
[2021-07-06 06:48] LABS: Hematocrit 31.8 % (42.0-52.0); Hemoglobin 9.9 g/dl (14.0-18.0); Mean Corpuscular HGB Conc 31.1 g/dl (31.0-36.0); Mean Corpuscular Hemoglobin 27.5 pg (27.0-33.0); Mean Corpuscular Volume 88.3 fL (80.0-98.0); Mean Platelet Volume 11.6 fL (9.4-12.4); Platelet Count 194 X10*3/uL (160-400); Red Cell Distribution Width 16.4 % (11.0-16.0); White Blood Count 12.2 X10*3/uL (4.8-10.8)
[2021-07-06 07:30] LABS: Anion Gap 13 (12-20); Blood Urea Nitrogen 29 mg/dL (9-16); Calcium 10.2 mg/dL (8.4-10.2); Carbon Dioxide 26 mmol/L (22-29); Chloride 118 mmol/L (96-108); Creatinine Clr Calc Pharmacy 51.5; Estimated Glomerular Filt Rate > 60; Glucose Random 184 mg/dL (60-115); Potassium 3.6 mmol/L (3.3-5.1); Sodium 153 mmol/L (135-145)
[2021-07-06 07:42] VITALS: BP 140/81; PULSE 105; RESP 20; O2SAT 92
--- NOTE | 2021-07-06 08:07 | MHC.CDI.CONC ---
CDI Concurrent Query Documentation Clarification: PHYSICIAN'S DOCUMENTATION REQUEST Date of Query: 07/06/21 0807 Patient Name: Ramakrishna Núñez Admit Date: 07/01/21 Dear Doctor, A review of the medical record indicates additional documentation may be needed. Please review below and update the documentation accordingly. Risk Factors/Clinical Indicators/Treatments Nutrition notes 07/05 - moderately malnourished with bmi 22.0 Mild depletion of subcutaneous fat and muscle mass. Peg tube Increase Kcals/protein ASPEN Criteria* Acute Illness Chronic Illness Clinical Characteristic Non-Severe (2 or more criteria present) Severe (2 or more criteria present) Non-Severe (2 or more criteria present) Severe (2 or more criteria present) Energy Intake <75% for >7 days <=50% for >=5 days <75% for >=1 month <=75% for >=1 month Weight Loss 1 week 1 ? 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 N/A Measurably Reduced N/A Measurably Reduced *[facility] Hospitalist, 2017 If possible, please provide in your progress notes, additional specificity regarding the severity of the malnutrition using the above information: Mild Moderate Severe Other (please specify) Unable to determine Use of terms such as suspected, likely, concern for, or probable (associated with a specific diagnosis that is being evaluated, monitored, or treated as if it exists) are acceptable and can be coded in the inpatient setting, when documented at the time of discharge. Thank you, Cyn Bowser [facility], CDIS Extension: [phone] Please use your independent medical judgment in providing your response. THIS QUERY IS PART OF THE PERMANENT MEDICAL RECORD Provider Response: Moderate Protein-Calorie Malnutrition Other Diagnosis: Error: Patient has Moderate Protein-Calorie Malnutrition, NOT MILD
[2021-07-06] MEDS: Dextrose 5 % 1,000 ML 100 ML IVCONT ×2 (08:16→16:30)
--- NOTE | 2021-07-06 08:34 | MHC.CDI.CONC ---
CDI Concurrent Query Documentation Clarification: PHYSICIAN'S DOCUMENTATION REQUEST Date of Query: 07/06/21 0835 Patient Name: Ramakrishna Núñez Admit Date: 07/01/21 Dear Doctor, A review of the medical record indicates additional documentation may be needed. Please review below and update the documentation accordingly. Risk Factors/Clinical Indicators/Treatments Wound care notes 07/05 - Pressure injury Stage III left buttock. Foam dressing. Based on the above, could you clarify in the Progress Notes the appropriate diagnosis, if significant, that supports the above abnormalities and additional evaluation, monitoring, and/or treatment rendered: Pressure Injury left buttock Stage 3 Other Unable to determine Use of terms such as suspected, likely, concern for, or probable (associated with a specific diagnosis that is being evaluated, monitored, or treated as if it exists) are acceptable and can be coded in the inpatient setting, when documented at the time of discharge. Thank you, Cyn Bowser [facility], CDIS Extension: [phone] Please use your independent medical judgment in providing your response. THIS QUERY IS PART OF THE PERMANENT MEDICAL RECORD Provider Response: Other (stage 3 coccyx pressure ulcer ) Other Diagnosis: stage 3 coccyx pressure ulcer
--- NOTE | 2021-07-06 09:00 | HO.PM.IMPN ---
Subjective Subjective Date of Service: 07/06/21 Review of Systems Patient unable to provide any history due to mental status, hx of stroke Blood pressure and heart rate more stable today Review of Systems:?Yes Unobtainable due to mental status Physical Exam Vital Signs: Vital Signs: Last Vital Signs Temp 98.6 F 07/06/21 03:43 Pulse 105 H 07/06/21 07:42 Resp 20 07/06/21 07:42 BP 140/81 H 07/06/21 07:42 Pulse Ox 92 07/06/21 07:42 Oxygen Flow Rate 2 07/01/21 16:57 BMI result Body Mass Index 21.9 Appearing in no acute distress, left eye ptosis lung sounds are clear to auscultation heart regular rate rhythm, clear S1, S2 positive bowel sounds, abdomen is soft, nontender neuro patient is alert , non verbal Objective Data Active Medications Acetaminophen (Acetaminophen Supp 650 Mg Supp.Rect) 650 mg PA Q6H PRN PRN Reason: Pain, Mild (Pain Scale 1-3) Last Admin: 07/03/21 19:45 Dose: 650 mg Documented by: JEFFREY Vancomycin HCl 1,000 mg/ (Sodium Chloride) 270 mls @ 270 mls/hr IV Q24H [facility] Last Infusion: 07/05/21 11:47 Dose: 0 mls/hr Documented by: CECI Ceftriaxone Sodium 1 gm/ (Sodium Chloride) 50 mls @ 100 mls/hr IV Q24H [facility] Last Infusion: 07/05/21 17:24 Dose: 0 mls/hr Documented by: JENNIFFER Dextrose (D5w) 1,000 mls @ 100 mls/hr IVCONT .Q10H [facility] Last Admin: 07/06/21 08:16 Dose: 100 mls/hr Documented by: DAYA Ondansetron HCl (Ondansetron Hcl 4 Mg/2 Ml Vial) 4 mg IVPUSH Q8H PRN PRN Reason: Nausea and Vomiting Last Admin: 07/02/21 04:44 Dose: 4 mg Documented by: RD Pharmacy Consult (Consult Rx Perform Med Rec) 1 each MISCELLANE ONCE PRN PRN Reason: Consult order Pharmacy Consult (Consult Rx Perform Med Rec) 1 each MISCELLANE ONCE PRN PRN Reason: Consult order Sodium Chloride (0.9 % Sodium Chloride Flush 3 Ml Syringe) 3 ml IVFLUSH QSHIFT [facility] Last Admin: 07/06/21 08:08 Dose: 3 ml Documented by: DAYA Labs CBC & Chem 7: 07/06/21 06:02 07/06/21 15:25 Labs: Laboratory Results - last 24 hr 07/05/21 07/05/21 07/05/21 07:47 07:47 09:53 MCV 87.3 MCH 27.3 MCHC 31.3 RDW 17.3 H Plt Count 160 MPV 12.2 Absolute Nucleated RBC 0.000 Nucleated RBC % (auto) 0.0 Anion Gap 13 Estim Creat Clear Calc 42.0 Estimated GFR 58 Random Glucose 192 H Calcium 10.1 Blood Type A Positive Antibody Screen NEGATIVE Crossmatch See Detail 07/06/21 07/06/21 06:02 06:02 MCV 88.3 MCH 27.5 MCHC 31.1 RDW 16.4 H Plt Count 194 MPV 11.6 Absolute Nucleated RBC 0.000 Nucleated RBC % (auto) 0.0 Anion Gap 13 Estim Creat Clear Calc 51.5 Estimated GFR > 60 Random Glucose 184 H Calcium 10.2 Blood Type Antibody Screen Crossmatch Microbiology Microbiology Results: Microbiology 07/01/21 17:28 Blood Culture - Preliminary Blood - Venous Gram positive cocci Proteus mirabilis 07/01/21 17:24 Blood Culture - Final Blood - Venous Enterococcus faecalis Proteus mirabilis Assessment and Plan (1) Bacteremia: Status: Acute (2) STAR (acute kidney injury): Status: Acute (3) Severe sepsis: Status: Acute Plan 86-year-old male with past medical history of CVA, CAD who presents to the hospital found to have severe sepsis likely secondary to UTI Anemia. 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 Sepsis resolved BP low despite IVF resuscitation; received 4.5L and getting another L bolus now; continue IVF, discussed with ICU, recommend albumin tachycardia, tachypnea, lactic acidosis, leukocytosis likely source is urine continue vancomycin and zosyn Discuss with ID STAR. Resolving renal function worsening. decreased UO likely secondary to sepsis IV fluids follow BMP Hyperkalemia. Resolved r/t to STAR unable to take PO IVF follow renal function vomiting. Resolved NPO for now no evidence of small-bowel obstruction on CT abdomen antiemetics Moderate protein calorie malnutrition. BMI 22 Protein increased in tube feeds Stage II coccyx wound wound care daily DVT prophylaxis: Heparin subQ HCP - daughter ELI Randall form in chart Attending: Hermilo Laura Stroke Does the patient have a stroke diagnosis?: No VTE Prior VTE?: No VTE Risk Level:: Medical - moderate - high VTE Device Contraindication: Treatment Not Indicated VTE Drug Contraindication: N/A - Med Ordered
[2021-07-06] MEDS: vancomycin HCL 1,000 MG in 0.9 % Sodium Chloride 250 ML 270 MG IV (09:38)
--- NOTE | 2021-07-06 10:08 | MHC.CLN ---
F/U PT HAS PEG TUBE PT RECEIVING PROMOTE TF AT MAX GOAL RATE 80ML/HR WITH 240ML FREE WATER TID PROVIDES 1920KCALS (30KCALS/KG), 120G PROTEIN (1.8G/KG) FOR WOUNDS, 2330ML TOTAL WATER FROM FORMULA AND FLUSHES (36ML/KG BASED ON ACTUAL BODY WT). IN ADDITION, PT RECEIVING D5W AND NOTED SERUM NA REMAINS ELEVATED PT WITH MULTIPLE PRESSURE INJURIES REQUIRING INCREASED KCALS/PROTEIN NEEDS. TF FORMULA WILL PROMOTE WOUND HEALING MONITOR TOLERANCE, RESIDUALS AND LYTES CAN INCREASE WATER FLUSHES NEEDED
[2021-07-06 11:40] VITALS: BP 144/65; PULSE 97; RESP 20; TEMP 37.1; O2SAT 99
--- NOTE | 2021-07-06 12:38 | MHC.CDI.CONC ---
CDI Concurrent Query Documentation Clarification: PHYSICIAN'S DOCUMENTATION REQUEST Date of Query: 07/06/21 1238 Patient Name: Ramakrishna Núñez Admit Date: 07/01/21 Dear Doctor, A review of the medical record indicates additional documentation may be indicated. Please review below and update the documentation accordingly. Clinical Indicators: Risk Factors/Clinical Indicators/Treatments Wound care notes 07/05 - Pressure Injury Stage 2 right buttock Foam dressing. Based on the above, could you please provide, in the Progress Notes, further information regarding the ulcer/wound: If a pressure ulcer, please also include the stage* of the ulcer: Stage 1 Stage 2 Stage 3 Other Unable to determine *Source: National Pressure Ulcer Advisory Panel (NPUAP) Use of terms such as suspected, likely, concern for, or probable (associated with a specific diagnosis that is being evaluated, monitored, or treated as if it exists) are acceptable and can be coded in the inpatient setting, when documented at the time of discharge. Thank you, Cyn Bowser [facility], CDIS Extension: [phone] Please use your independent medical judgment in providing your response. THIS QUERY IS PART OF THE PERMANENT MEDICAL RECORD Provider Response: Other (see note ) Other Diagnosis: see note
[2021-07-06] MEDS: cefTRIAXone sodium 1 GM in 0.9 % Sodium Chloride 50 ML IV (15:01)
[2021-07-06 15:09] VITALS: BP 145/77; PULSE 109; RESP 20; TEMP 36.4; O2SAT 99
[2021-07-06 15:52] LABS: Sodium 152 mmol/L (135-145)
[2021-07-06 18:37] LABS: Sodium 150 mmol/L (135-145)
[2021-07-06 19:16] VITALS: BP 154/75; PULSE 104; RESP 20; TEMP 36.3; O2SAT 98
[2021-07-06 23:21] VITALS: BP 143/75; PULSE 124; RESP 20; TEMP 36.8; O2SAT 98
[2021-07-07] MEDS: Dextrose 5 % 1,000 ML 100 ML IVCONT (01:27)
[2021-07-07 03:35] VITALS: BP 136/90; PULSE 127; RESP 22; TEMP 36.5; O2SAT 97
--- NOTE | 2021-07-07 04:25 | PC.NURSE ---
Patients HR 120's. IV fluids infusing as ordered. Pt nonverbal. Dr Tsai notified. No new orders. Will continue to monitor.
--- NOTE | 2021-07-07 05:54 | PC.NURSE ---
Addendum entered by Lizette Hinds RN 07/07/21 06:32: ordered am labs and Metoprolol BID. Will pass along in report. Original Note: Pt remains ST 110-120's. Had an 11 beat runt PAT. Pt appears asymptomatic bt hard to tell per his baseline with dementia and non-verbal. Dr notified. No new orders. Will continue to monitor.
--- NOTE | 2021-07-07 05:54 | PM.EVENT ---
Event Note Date of Service: 07/10/21 Event Note: NSVT: Patient has 10 beats of NSVT. Asymptomatic. Patient has been tachy. Patient blood pressure medication-> metoprolol has not been resumed. Currently patient holding his blood pressure in 130s systolic. Will resume his home metoprolol with holding parameters. BMP and Mag levels pending
[2021-07-07 06:00] VITALS: BMI 21.7
[2021-07-07 07:13] VITALS: BP 122/69; PULSE 120; RESP 20; TEMP 36.6; O2SAT 95
--- NOTE | 2021-07-07 07:43 | PC.NURSE ---
Skin/Wound assessment completed today. On admission it was noted that the patient had a Stage 2 pressure ulcer to right buttock, a Stage 3 pressure ulcer to left buttock, DTI to outer right ankle and DTI to left inner ankle. Upon my assessment the patient has Stage 2 pressure ulcers to bilateral buttocks, an unstageable pressure injury to left inner ankle and a small stage 1 to right outer ankle. Thin layer of Triad applied to buttocks then silver alginate placed over Triad covered with foam dressing, Triad applied to left ankle PU covered with foam and Sween 24 moisturizer applied to right outer ankle. Barrier cream to scrotum and jt area for protection.
--- NOTE | 2021-07-07 07:57 | HO.PM.IMPN ---
Subjective Subjective Date of Service: 07/10/21 <Cindy Gray NP - Last Filed: 07/10/21 15:17> 07/07/21 <Juan J Akhtar MD - Last Filed: 07/07/21 11:40> Interval History: seen and examined this AM remains non-verbal more tachypneic today <Cindy Gray NP - Last Filed: 07/10/21 15:17> seen and examined this AM remains non-verbal overnight events reviewed -- had run of NSVT - 10 beats, no symptoms <Juan J Akhtar MD - Last Filed: 07/07/21 11:40> Physical Exam Vital Signs: Vital Signs: Last Vital Signs Temp 97.9 F 07/07/21 07:13 Pulse 120 H 07/07/21 07:13 Resp 20 07/07/21 07:13 BP 122/69 07/07/21 07:13 Pulse Ox 95 07/07/21 07:13 Oxygen Flow Rate 2 07/01/21 16:57 BMI result Body Mass Index 21.7 <Cindy Gray NP - Last Filed: 07/10/21 15:17> Appearing in mild resp distress lung sounds are clear to auscultation heart regular rate rhythm, clear S1, S2 positive bowel sounds, abdomen is soft, nontender neuro patient is lethargic <Cindy Gray NP - Last Filed: 07/10/21 15:17> Const: Other: General -awake, but not alert and not in any distress Cardiovascular - s1s2; tachy around 110 Lungs - no respiratory distress Abdomen - soft, nt; g-tube in place Extremities - no edema bilaterally Neuro - awake but not alert; non-verbal <Juan J Akhtar MD - Last Filed: 07/07/21 11:40> Objective Data Active Medications Acetaminophen (Acetaminophen Supp 650 Mg Supp.Rect) 650 mg NE Q6H PRN PRN Reason: Pain, Mild (Pain Scale 1-3) Last Admin: 07/03/21 19:45 Dose: 650 mg Documented by: JEFFREY Vancomycin HCl 1,000 mg/ (Sodium Chloride) 270 mls @ 270 mls/hr IV Q24H [facility] Last Infusion: 07/06/21 10:39 Dose: 0 mls/hr Documented by: DAYA Ceftriaxone Sodium 1 gm/ (Sodium Chloride) 50 mls @ 100 mls/hr IV Q24H [facility] Last Infusion: 07/06/21 15:34 Dose: 0 mls/hr Documented by: DAYA Dextrose (D5w) 1,000 mls @ 100 mls/hr IVCONT .Q10H [facility] Last Admin: 07/07/21 01:27 Dose: 100 mls/hr Documented by: BRITTNEY Metoprolol Tartrate (Metoprolol Tartrate 25 Mg Tablet) 25 mg PO BID [facility]; Protocol Ondansetron HCl (Ondansetron Hcl 4 Mg/2 Ml Vial) 4 mg IVPUSH Q8H PRN PRN Reason: Nausea and Vomiting Last Admin: 07/02/21 04:44 Dose: 4 mg Documented by: RD Pharmacy Consult (Consult Rx Perform Med Rec) 1 each MISCELLANE ONCE PRN PRN Reason: Consult order Pharmacy Consult (Consult Rx Perform Med Rec) 1 each MISCELLANE ONCE PRN PRN Reason: Consult order Sodium Chloride (0.9 % Sodium Chloride Flush 3 Ml Syringe) 3 ml IVFLUSH QSHIFT [facility] Last Admin: 07/07/21 00:02 Dose: Not Given Documented by: BRITTNEY Non-Admin Reason: IV Running <Cindy Gray NP - Last Filed: 07/10/21 15:17> Labs CBC & Chem 7: : 07/09/21 08:25 07/10/21 09:01 <Cindy Gray NP - Last Filed: 07/10/21 15:17> Microbiology Microbiology Results: Microbiology 07/01/21 17:28 Blood Culture - Final Blood - Venous Enterococcus faecalis Proteus mirabilis <Cindy Gray NP - Last Filed: 07/10/21 15:17> Assessment and Plan (1) Bacteremia: Status: Acute <Cindy Gray NP - Last Filed: 07/10/21 15:17> (2) STAR (acute kidney injury): Status: Acute <Cindy Gray NP - Last Filed: 07/10/21 15:17> (3) Severe sepsis: Status: Acute <Cindy Gray NP - Last Filed: 07/10/21 15:17> Plan 86-year-old male with past medical history of CVA, CAD who presents to the hospital found to have severe sepsis likely secondary to UTI Severe sepsis + Septic Shock Due to UTI(Due to chronic whittington) causing Polymicrobial (Enterococcus + Proteus) bacteremia Repeat blood cx today Continue Rocephin / Vancomcyin for now -- plan for Zyvox + Ceftin total 21 upon d/c Sepsis resolved NSVT 10 beats Due to electrolyte abnormalities + hold BB (which was done due to shock) BB restarted replete electro lytes as below HypoMg (1.4 today) Give Mag sulfate 2g x 2 IV Hypophos (1.1 today) Nuetraphos x 4 doses HypoNa resolved with IV D5W and increasing free water flushes in the G tube stop IVF Acute blood loss anemia due to hematuria from whittington hematuria resolved s/p 1 unit prbc h/h stable STAR likely ATN From Sepsis / Shock resolved Hyperkalemia due to acute kidney injury and now resolved Vomiting resolved tolerating tube feeds Moderate protein calorie malnutrition tube feeds follow nutrition recs Stage II coccyx wound wound care daily DNR, but okay for intubation DVT pptx, Mechanical due to acute blood loss anemia requiring transfusion dispo: likely home with resumption of services once stable, likely next 24-48 hours <Juan J Akhtar MD - Last Filed: 07/07/21 11:40> Quality Stroke Does the patient have a stroke diagnosis?: No <Cindy Gray NP - Last Filed: 07/10/21 15:17> VTE Prior VTE?: No <Cindy Gray NP - Last Filed: 07/10/21 15:17> VTE Risk Level:: Medical - moderate - high <Cindy Gray NP - Last Filed: 07/10/21 15:17> VTE Device Contraindication: Treatment Not Indicated <Cindy Gray NP - Last Filed: 07/10/21 15:17> VTE Drug Contraindication: N/A - Med Ordered <Cindy Gray NP - Last Filed: 07/10/21 15:17>
[2021-07-07 08:30] LABS: Hematocrit 32.5 % (42.0-52.0); Hemoglobin 10.4 g/dl (14.0-18.0); Mean Corpuscular Hemoglobin 27.5 pg (27.0-33.0); Mean Platelet Volume 11.6 fL (9.4-12.4); Platelet Count 233 X10*3/uL (160-400); Red Blood Count 3.78 X10*6/uL (4.60-5.80); Red Cell Distribution Width 16.2 % (11.0-16.0); White Blood Count 12.8 X10*3/uL (4.8-10.8)
[2021-07-07 08:52] LABS: Vancomycin Trough 12.2 mcg/mL (10.0-20.0)
[2021-07-07 08:53] LABS: Anion Gap 12 (12-20); Blood Urea Nitrogen 26 mg/dL (9-16); Calcium 9.6 mg/dL (8.4-10.2); Carbon Dioxide 26 mmol/L (22-29); Chloride 109 mmol/L (96-108); Estimated Glomerular Filt Rate > 60; Glucose Random 304 mg/dL (60-115); Sodium 143 mmol/L (135-145)
--- NOTE | 2021-07-07 09:13 | HE.PHANOTE ---
VANCOMYCIN ADDENDUM: Patients trough came back at 12.2 and the renal function has improved to SCR 0.90. I will increase the drug regimen to 1250 mg Q24h and will continue to monitor the renal function. The AUC is predicted at 464 with a trough of 13.3. The next trough will be drawn on 07/09 @ 0800.
[2021-07-07] MEDS: vancomycin HCL 1,250 MG in 0.9 % Sodium Chloride 250 ML 166.67 MG IV (09:22)
[2021-07-07] MEDS: 0.9 % Sodium Chloride Flush 3 ML SYRINGE IVFLUSH ×2 (09:22→16:31)
[2021-07-07] MEDS: Metoprolol Tartrate 50 MG TABLET PO ×2 (09:22→21:18)
[2021-07-07 09:26] LABS: Magnesium 1.4 mg/dL (1.6-2.6); Phosphorus 1.1 mg/dL (2.7-4.5)
[2021-07-07 11:15] VITALS: BP 137/70; PULSE 116; RESP 22; TEMP 36.9; O2SAT 97
--- NOTE | 2021-07-07 12:05 | MHC.CLN ---
F/U SERUM NA WNL TODAY PT RECEIVING PROMOTE TF AT MAX GOAL RATE 80ML/HR WITH 300ML FREE WATER Q 6 HRS PROVIDES 1920KCALS (30KCALS/KG), 120G PROTEIN (1.8G/KG) FOR WOUNDS, 2810ML TOTAL WATER FROM FORMULA AND FLUSHES (42.9ML/KG BASED ON ACTUAL BODY WT). PT WITH MULTIPLE PRESSURE INJURIES REQUIRING INCREASED KCALS/PROTEIN NEEDS. TF FORMULA WILL PROMOTE WOUND HEALING RECOMMEND DECREASING FWF TO 300CC Q SHIFT TO PROVIDE 2510CC TOTAL WATER FROM FORMULA AND FLUSHES (38ML/KG) MONITOR TOLERANCE, RESIDUALS AND LYTES (MG, PHOS AND K+ FOR POTENTIAL RE-FEEDING)
[2021-07-07] MEDS: Sodium,Potassium Phosphates POWD.PACK 2 PACKET PO ×3 (12:30→21:18)
[2021-07-07] MEDS: Magnesium Sulfate/H2O 2 GM/50 ML PIGGYBACK IV ×2 (12:30→21:18)
[2021-07-07 14:57] VITALS: BP 126/62; PULSE 80; RESP 20; TEMP 36.6; O2SAT 95
--- NOTE | 2021-07-07 15:25 | MHC.CM.PN ---
Per ROUNDS discussion, Patient's Na is elevated and he is not yet medically cleared for dc. Home/resume services is the goal and CM will follow for possible need to adjust the dc plan.
[2021-07-07] MEDS: cefTRIAXone sodium 1 GM in 0.9 % Sodium Chloride 50 ML IV (16:30)
[2021-07-07 19:07] VITALS: BP 138/77; PULSE 127; RESP 20; TEMP 37.1; O2SAT 97
[2021-07-07 23:19] VITALS: BP 121/66; PULSE 115; RESP 22; TEMP 37.3; O2SAT 96
[2021-07-08 03:43] VITALS: BP 125/68; PULSE 119; RESP 22; TEMP 37.1; O2SAT 97
[2021-07-08 06:00] VITALS: BMI 19.5
[2021-07-08 06:54] LABS: Hematocrit 33.8 % (42.0-52.0); Hemoglobin 10.7 g/dl (14.0-18.0); Mean Corpuscular HGB Conc 31.7 g/dl (31.0-36.0); Mean Corpuscular Hemoglobin 27.6 pg (27.0-33.0); Mean Corpuscular Volume 87.1 fL (80.0-98.0); Platelet Count 286 X10*3/uL (160-400); Red Blood Count 3.88 X10*6/uL (4.60-5.80); Red Cell Distribution Width 17.1 % (11.0-16.0); White Blood Count 15.3 X10*3/uL (4.8-10.8)
[2021-07-08 07:08] LABS: Magnesium 2.2 mg/dL (1.6-2.6); Phosphorus 2.7 mg/dL (2.7-4.5)
[2021-07-08 07:09] LABS: Anion Gap 12 (12-20); Blood Urea Nitrogen 31 mg/dL (9-16); Calcium 9.6 mg/dL (8.4-10.2); Carbon Dioxide 28 mmol/L (22-29); Chloride 108 mmol/L (96-108); Creatinine Clr Calc Pharmacy 45.4; Estimated Glomerular Filt Rate > 60; Glucose Random 274 mg/dL (60-115); Potassium 4.9 mmol/L (3.3-5.1); Sodium 143 mmol/L (135-145)
--- NOTE | 2021-07-08 07:26 | HE.PHANOTE ---
VANCOMYCIN ADDENDUM: Patients Scr is 0.98 this morning. The AUC model is predicting a AUC of 500 and trough of 14.7 with the current regimen of 1250 mg Q24H. Will continue to monitor renal function.
[2021-07-08 08:00] VITALS: BP 110/61; PULSE 116; RESP 20; TEMP 37.2; O2SAT 95
[2021-07-08] MEDS: Metoprolol Tartrate 50 MG TABLET PO ×2 (10:09→21:05)
[2021-07-08] MEDS: vancomycin HCL 1,250 MG in 0.9 % Sodium Chloride 250 ML 166.67 MG IV (10:10)
[2021-07-08] MEDS: 0.9 % Sodium Chloride Flush 3 ML SYRINGE IVFLUSH ×3 (10:10→21:05)
--- NOTE | 2021-07-08 10:59 | MHC.CLN ---
F/U REVIEWED LABS-IMPROVED PT RECEIVING PROMOTE TF AT MAX GOAL RATE 80ML/HR WITH 300ML FREE WATER Q 8 HRS PROVIDES 1920KCALS (30KCALS/KG), 120G PROTEIN (1.8G/KG) FOR WOUNDS, 2510ML TOTAL WATER FROM FORMULA AND FLUSHES (38ML/KG BASED ON ACTUAL BODY WT). PT WITH MULTIPLE PRESSURE INJURIES REQUIRING INCREASED KCALS/PROTEIN NEEDS. TF FORMULA WILL PROMOTE WOUND HEALING CONTINUE TO MONITOR TOLERANCE, RESIDUALS AND LYTES
[2021-07-08 11:35] VITALS: BP 109/53; PULSE 112; RESP 18; TEMP 36.8; O2SAT 96
--- NOTE | 2021-07-08 13:49 | HO.PM.IMPN ---
Subjective Subjective Date of Service: 07/08/21 Interval History: seen and examined this morning non-verbal not following commands Review of Systems Review of Systems: Yes Unobtainable due to mental condition and Unobtainable due to mental status Physical Exam Vital Signs: Vital Signs: Last Vital Signs Temp 98.2 F 07/08/21 11:35 Pulse 112 H 07/08/21 11:35 Resp 18 07/08/21 11:35 BP 109/53 L 07/08/21 11:35 Pulse Ox 96 07/08/21 11:35 Oxygen Flow Rate 2 07/01/21 16:57 BMI result Body Mass Index 19.5 Const: Other: awake but not responding verbally General: no acute distress Resp: Effort & Inspection: normal respiratory effort Cardio: Rate: tachycardic Heart sounds: S1 normal heart sound present and S2 normal heart sound present GI: Other: g tube in place; abdomen soft Neuro: Other: not following commands Objective Data Active Medications Acetaminophen (Acetaminophen Supp 650 Mg Supp.Rect) 650 mg NV Q6H PRN PRN Reason: Pain, Mild (Pain Scale 1-3) Last Admin: 07/03/21 19:45 Dose: 650 mg Documented by: JEFFREY Ceftriaxone Sodium 1 gm/ (Sodium Chloride) 50 mls @ 100 mls/hr IV Q24H [facility] Last Infusion: 07/07/21 17:01 Dose: 0 mls/hr Documented by: JENNIFFER Vancomycin HCl 1,250 mg/ (Sodium Chloride) 250 mls @ 166.667 mls/hr IV Q24H [facility] Last Infusion: 07/08/21 11:45 Dose: 0 mls/hr Documented by: DIPTI Metoprolol Tartrate (Metoprolol Tartrate 50 Mg Tablet) 50 mg PO BID [facility]; Protocol Last Admin: 07/08/21 10:09 Dose: 50 mg Documented by: DIPTI Ondansetron HCl (Ondansetron Hcl 4 Mg/2 Ml Vial) 4 mg IVPUSH Q8H PRN PRN Reason: Nausea and Vomiting Last Admin: 07/02/21 04:44 Dose: 4 mg Documented by: RD Pharmacy Consult (Consult Rx Perform Med Rec) 1 each MISCELLANE ONCE PRN PRN Reason: Consult order Pharmacy Consult (Consult Rx Perform Med Rec) 1 each MISCELLANE ONCE PRN PRN Reason: Consult order Sodium Chloride (0.9 % Sodium Chloride Flush 3 Ml Syringe) 3 ml IVFLUSH QSHIFT [facility] Last Admin: 07/08/21 10:10 Dose: 3 ml Documented by: DIPTI Labs CBC & Chem 7: 07/08/21 06:19 07/08/21 06:19 Labs: Laboratory Results - last 24 hr 07/08/21 07/08/21 07/08/21 06:19 06:19 06:19 MCV 87.1 MCH 27.6 MCHC 31.7 RDW 17.1 H Plt Count 286 MPV 12.0 Absolute Nucleated RBC 0.000 Nucleated RBC % (auto) 0.0 Anion Gap 12 Estim Creat Clear Calc 45.4 Estimated GFR > 60 Random Glucose 274 H Calcium 9.6 Phosphorus 2.7 Magnesium 2.2 Assessment and Plan (1) Septic shock: Status: Acute (2) Gram-negative bacteremia: Status: Acute Plan 86-year-old male with past medical history of CVA, CAD who presents to the hospital found to have severe sepsis likely secondary to UTI Severe sepsis + Septic Shock Due to UTI(Due to chronic whittington) causing Polymicrobial (Enterococcus + Proteus) bacteremia Repeat blood cx prelim negative Continue Rocephin / Vancomcyin for now -- plan for Zyvox + Ceftin total 21 upon d/c Sepsis resolved NSVT 10 beats Due to electrolyte abnormalities + hold BB (which was done due to shock) BB restarted replete electro lytes as below HypoMg (1.4 today) Give Mag sulfate 2g x 2 IV Hypophos (1.1 today) Nuetraphos x 4 doses HypoNa resolved with IV D5W and increasing free water flushes in the G tube stop IVF Acute blood loss anemia due to hematuria from [place] hematuria resolved s/p 1 unit prbc h/h stable STAR likely ATN From Sepsis / Shock resolved Hyperkalemia due to acute kidney injury and now resolved Vomiting resolved tolerating tube feeds Moderate protein calorie malnutrition tube feeds follow nutrition recs Stage II coccyx wound wound care daily DNR, but okay for intubation DVT pptx, Mechanical due to acute blood loss anemia requiring transfusion dispo: likely home with resumption of services once stable, likely next 24-48 hours Quality Stroke Does the patient have a stroke diagnosis?: No VTE Prior VTE?: No VTE Risk Level:: Medical - moderate - high VTE Device Contraindication: Treatment Not Indicated VTE Drug Contraindication: N/A - Med Ordered
[2021-07-08 15:01] VITALS: PULSE 112; RESP 20; TEMP 38.6; O2SAT 97
[2021-07-08] MEDS: cefTRIAXone sodium 1 GM in 0.9 % Sodium Chloride 50 ML IV (15:56)
[2021-07-08] MEDS: Morphine Sulfate 2 MG/ML CARTRIDGE IVPUSH (16:01)
[2021-07-08 19:07] LABS: COVID-19 Test Negative (Negative)
[2021-07-08 19:10] VITALS: BP 123/63; PULSE 111; RESP 20; TEMP 38.1; O2SAT 97
--- NOTE | 2021-07-08 20:00 | PC.NURSE ---
Took over assignment at 15:00. Patient was breathing with accessory muscles at 40 BPM. Informed Glenn Cortes which in turn ordered a chest xray and 2 mg iv Morphine. Changed patients position but breathing still labored. Promote feed on hold until morning for re-eval. Morphine helped only slightly patient was at 36 bpm.
[2021-07-08 23:01] VITALS: BP 126/70; PULSE 80; RESP 20; TEMP 36.1; O2SAT 99
[2021-07-09] VITALS (8 sets, daily range): BP systolic 118–149; BP diastolic 60–78; PULSE 78–125; RESP 17–30; TEMP 36.4–37.8; O2SAT 94–97; BMI 22.2
[2021-07-09 08:53] LABS: Hematocrit 34.3 % (42.0-52.0); Hemoglobin 10.8 g/dl (14.0-18.0); Mean Corpuscular HGB Conc 31.5 g/dl (31.0-36.0); Mean Corpuscular Hemoglobin 28.1 pg (27.0-33.0); Mean Corpuscular Volume 89.1 fL (80.0-98.0); Mean Platelet Volume 11.4 fL (9.4-12.4); Platelet Count 311 X10*3/uL (160-400); Red Blood Count 3.85 X10*6/uL (4.60-5.80); Red Cell Distribution Width 17.6 % (11.0-16.0); White Blood Count 16.1 X10*3/uL (4.8-10.8)
[2021-07-09 09:00] LABS: Creatinine Clr Calc Pharmacy 55.6; Estimated Glomerular Filt Rate > 60
[2021-07-09] MEDS: Metoprolol Tartrate 50 MG TABLET PO (09:02)
[2021-07-09 09:05] LABS: Anion Gap 14 (12-20); Blood Urea Nitrogen 33 mg/dL (9-16); Calcium 10.2 mg/dL (8.4-10.2); Carbon Dioxide 26 mmol/L (22-29); Chloride 109 mmol/L (96-108); Creatinine Clr Calc Pharmacy 58.2; Estimated Glomerular Filt Rate > 60; Glucose Random 183 mg/dL (60-115); Sodium 144 mmol/L (135-145)
[2021-07-09] MEDS: 0.9 % Sodium Chloride Flush 3 ML SYRINGE IVFLUSH ×3 (09:06→20:39)
--- NOTE | 2021-07-09 10:05 | MHC.CM.PN ---
Patient is not yet medically cleared for dc (IV Ceftriaxone, IV Vanco); Home/resume services and family care is the goal and CM will follow for possible need to adjust the dc plan.
[2021-07-09 11:20] LABS: Vancomycin Trough 17.2 mcg/mL (10.0-20.0)
--- NOTE | 2021-07-09 11:25 | HE.PHANOTE ---
VANCOMYCIN ADDENDUM: Since the trough came back on the higher side (17.2) and considering his age, I am going to be a little conservative and continue his regimen at 1000 mg Q24H. we will continue to monitor his renal function and the next trough is set to be drawn on 07/12 @ 1000. The new regimen predicts a trough of 12.3 and AUC of 414.
--- NOTE | 2021-07-09 12:02 | MHC.CLN ---
Addendum entered by Lizy Llanes, ALKA 07/09/21 15:24: DISCUSSED CASE WITH TEJAL AND MIGEL ROBLES PT TO RE-START TF RECOMMEND STARTING PROMOTE AT 10ML/HR AND INCREASE BY 10ML Q 4HRS WITH MAX GOAL 40ML/HR TF TO STOP AT HALF STRENGTH FOR TODAY MONITOR TOLERANCE AND RESIDUALS CLOSELY RE-EVAL TOLERANCE TOMORROW CONSULT RD VIA TIGER TEXT IF NEEDED Original Note: F/U PT'S TF CURRENTLY ON HOLD NOTED FEVER AND QUESTION ASPIRATION PER MD IF TF TO RE-START; RECOMMEND PROMOTE TF AT MAX GOAL RATE 80ML/HR WITH 300ML FREE WATER Q 8 HRS PROVIDES 1920KCALS (30KCALS/KG), 120G PROTEIN (1.8G/KG) FOR WOUNDS, 2510ML TOTAL WATER FROM FORMULA AND FLUSHES (38ML/KG BASED ON ACTUAL BODY WT). START FORMULA AT 20ML/HR AND INCREASE BY 10ML Q 4HRS UNTIL MAX GOAL IS ACHIEVED CONTINUE TO MONITOR TOLERANCE, RESIDUALS AND LYTES
[2021-07-09] MEDS: vancomycin HCL 1,000 MG in 0.9 % Sodium Chloride 250 ML 270 MG IV (12:31)
--- NOTE | 2021-07-09 15:01 | P.PNIM_ITS ---
Subjective Subjective Date of Service: 07/09/21 Interval History: seen and examined this morning awake, will nod head to some questions but overall difficult to obtain history yesterday afternoon had probable aspiration event, with increased work of breathing accessory muscle use. appears more comfortable this morning Review of Systems Review of Systems: Yes Unobtainable due to mental condition and Unobtainable due to mental status Physical Exam Vital Signs: Vital Signs: Last Vital Signs Temp 97.5 F 07/09/21 14:59 Pulse 62 07/09/21 14:59 Resp 20 07/09/21 14:59 BP 129/58 L 07/09/21 14:59 Pulse Ox 91 L 07/09/21 14:59 Oxygen Flow Rate 2 07/01/21 16:57 BMI result Body Mass Index 22.2 Const: Other: awake but not responding verbally General: no acute distress, ill appearing and lethargic Orientation/consciousness: lethargic Resp: Effort & Inspection: normal respiratory effort and uses accessory muscles Cardio: Rate: tachycardic Heart sounds: S1 normal heart sound present and S2 normal heart sound present GI: Other: g tube in place; abdomen soft : Other: whittington in place, minimal urine output Skin: Other: ulcer coccyx appears clean no drainage Extrem: Other: no leg edema Objective Data Active Medications Acetaminophen (Acetaminophen Supp 650 Mg Supp.Rect) 650 mg SC Q6H PRN PRN Reason: Pain, Mild (Pain Scale 1-3) Last Admin: 07/03/21 19:45 Dose: 650 mg Documented by: JEFFREY Ceftriaxone Sodium 1 gm/ (Sodium Chloride) 50 mls @ 100 mls/hr IV Q24H COUNTS INCLUDE 234 BEDS AT THE [facility] Last Infusion: 07/08/21 16:30 Dose: 0 mls/hr Documented by: VERITO Vancomycin HCl 1,000 mg/ (Sodium Chloride) 270 mls @ 270 mls/hr IV Q24H COUNTS INCLUDE 234 BEDS AT THE [facility] Last Infusion: 07/09/21 13:31 Dose: 0 mls/hr Documented by: LEE Metoprolol Tartrate (Metoprolol Tartrate 50 Mg Tablet) 50 mg PO BID COUNTS INCLUDE 234 BEDS AT THE [facility]; Protocol Last Admin: 07/09/21 09:02 Dose: 50 mg Documented by: LEE Ondansetron HCl (Ondansetron Hcl 4 Mg/2 Ml Vial) 4 mg IVPUSH Q8H PRN PRN Reason: Nausea and Vomiting Last Admin: 07/02/21 04:44 Dose: 4 mg Documented by: RD Pharmacy Consult (Consult Rx Perform Med Rec) 1 each MISCELLANE ONCE PRN PRN Reason: Consult order Pharmacy Consult (Consult Rx Perform Med Rec) 1 each MISCELLANE ONCE PRN PRN Reason: Consult order Sodium Chloride (0.9 % Sodium Chloride Flush 3 Ml Syringe) 3 ml IVFLUSH QSHIFT [facility] Last Admin: 07/09/21 09:06 Dose: 3 ml Documented by: LEE Labs CBC & Chem 7: 07/09/21 08:25 07/09/21 08:25 Labs: Laboratory Results - last 24 hr 07/08/21 07/09/21 07/09/21 18:44 08:25 08:25 MCV MCH MCHC RDW Plt Count MPV Absolute Nucleated RBC Nucleated RBC % (auto) Anion Gap Estim Creat Clear Calc 55.6 Estimated GFR > 60 Random Glucose Calcium Vancomycin Trough 17.2 COVID-19 (PETE) Negative COVID-19 Clin Com See Note 07/09/21 07/09/21 08:25 08:25 MCV 89.1 MCH 28.1 MCHC 31.5 RDW 17.6 H Plt Count 311 MPV 11.4 Absolute Nucleated RBC 0.000 Nucleated RBC % (auto) 0.0 Anion Gap 14 Estim Creat Clear Calc 58.2 Estimated GFR > 60 Random Glucose 183 H Calcium 10.2 D Vancomycin Trough COVID-19 (PETE) COVID-19 Clin Com Microbiology Microbiology Results: Microbiology 07/07/21 11:43 Blood Culture - Preliminary Blood - Venous No growth after 48 hours. 07/07/21 11:45 Blood Culture - Preliminary Blood - Venous No growth after 48 hours. Assessment and Plan (1) Urinary retention: Status: Acute (2) Dementia: Status: Acute (3) Gram-negative bacteremia: Status: Acute (4) UTI (urinary tract infection): Status: Acute Plan 86-year-old male with past medical history of CVA, CAD who presents to the hospital found to have severe sepsis likely secondary to UTI Severe sepsis + Septic Shock Due to UTI(Due to chronic whittington) causing Polymicrobial (Enterococcus + Proteus) bacteremia Repeat blood cx prelim negative Continue Rocephin / Vancomcyin for now -- plan for Zyvox + Ceftin total 21 upon d/c Sepsis resolved probable aspiration event tube feeds held overnight will resume at lower rate already covered with abx breathing easier this morning, not requiring supplemental oxygen Vomiting resolved NSVT 10 beats Due to electrolyte abnormalities + hold BB (which was done due to shock) BB restarted replete electro lytes as below HypoMg (1.4 today) Give Mag sulfate 2g x 2 IV Hypophos (1.1 today) Nuetraphos x 4 doses HypoNa resolved with IV D5W and increasing free water flushes in the G tube stop IVF Acute blood loss anemia due to hematuria from [place]itting[place] hematuria resolved s/p 1 unit prbc h/h stable STAR likely ATN From Sepsis / Shock resolved Hyperkalemia due to acute kidney injury and now resolved Moderate protein calorie malnutrition tube feeds follow nutrition recs Stage II coccyx wound wound care daily DNR, but okay for intubation DVT pptx, Mechanical due to acute blood loss anemia requiring transfusion dispo: likely home with resumption of services once stable Attending: Dr. resendez Quality Stroke Does the patient have a stroke diagnosis?: No VTE Prior VTE?: No VTE Risk Level:: Medical - moderate - high VTE Device Contraindication: Treatment Not Indicated VTE Drug Contraindication: N/A - Med Ordered
[2021-07-09] MEDS: cefTRIAXone sodium 1 GM in 0.9 % Sodium Chloride 50 ML IV (15:50)
[2021-07-09] MEDS: Morphine Sulfate 2 MG/ML CARTRIDGE 1 MG IVPUSH (20:37)
[2021-07-09 20:38] LABS: ABG Base Excess 4.1 mmol/L; ABG HCO3 26 mmol/L (22-26); ABG pCO2 32 mmHg (32-45); ABG pH 7.51 (7.35-7.45); ABG pO2 78 mmHg (83-108)
[2021-07-09 21:08] LABS: Anion Gap 15 (12-20); Blood Urea Nitrogen 33 mg/dL (9-16); Carbon Dioxide 26 mmol/L (22-29); Chloride 108 mmol/L (96-108); Creatinine Clr Calc Pharmacy 51.1; Estimated Glomerular Filt Rate > 60; Glucose Random 179 mg/dL (60-115); Magnesium 2.1 mg/dL (1.6-2.6); Sodium 144 mmol/L (135-145)
[2021-07-09 21:13] LABS: B Type Natriuretic Peptide 1284 pg/mL (<100)
--- NOTE | 2021-07-09 21:37 | W.PM.CCCN ---
History of Present Illness Data of Consult Primary Care Provider: Stevie Childers MD [facility] Past Medical History Medical History BPH (benign prostatic hyperplasia) Coronary artery disease CVA (cerebral vascular accident) Dementia Diabetes Gout HTN (hypertension) Hypothyroidism Family History Family History Other No family history of coronary artery disease Family history: reviewed and not pertinent Surgical History Surgical History Hx of CABG Social History Social History Household Members: Unknown / Unable to assess Housing: Unknown / Unable to assess Do you presently have visiting nurse or other home services: No Unable to assess alcohol history related to: Unable to respond Alcohol intake: current Patient Tobacco Use Status: Never used Tobacco Advance Directives Date on File: 07/02/21 Current occupational status: disabled [employer] Allergies Allergy/AdvReac Type Severity Reaction Status Date / Time No Known Allergies Allergy Mild NONE Verified 04/03/20 23:07 Active Medications: Current Medications Acetaminophen (Acetaminophen Supp 650 Mg Supp.Rect) 650 mg VT Q6H PRN PRN Reason: Pain, Mild (Pain Scale 1-3) Last Admin: 07/03/21 19:45 Dose: 650 mg Documented by: Albuterol/Ipratropium (Albuterol/Iprat 2.5/0.5mg 3 Ml Ampul.Neb) 3 ml INHALE RQ4H PRN PRN Reason: Shortness of Breath/Wheezing Ceftriaxone Sodium 1 gm/ (Sodium Chloride) 50 mls @ 100 mls/hr IV Q24H [facility] Last Infusion: 07/09/21 16:20 Dose: Infused Documented by: Vancomycin HCl 1,000 mg/ (Sodium Chloride) 270 mls @ 270 mls/hr IV Q24H [facility] Last Infusion: 07/09/21 13:31 Dose: Infused Documented by: Metoprolol Tartrate (Metoprolol Tartrate 50 Mg Tablet) 50 mg PO BID [facility]; Protocol Last Admin: 07/09/21 20:28 Dose: Not Given Documented by: Ondansetron HCl (Ondansetron Hcl 4 Mg/2 Ml Vial) 4 mg IVPUSH Q8H PRN PRN Reason: Nausea and Vomiting Last Admin: 07/02/21 04:44 Dose: 4 mg Documented by: Pharmacy Consult (Consult Rx Perform Med Rec) 1 each MISCELLANE ONCE PRN PRN Reason: Consult order Pharmacy Consult (Consult Rx Perform Med Rec) 1 each MISCELLANE ONCE PRN PRN Reason: Consult order Sodium Chloride (0.9 % Sodium Chloride Flush 3 Ml Syringe) 3 ml IVFLUSH [facility] Last Admin: 07/09/21 20:39 Dose: 3 ml Documented by: Home Medications Medication Instructions Recorded Confirmed Last Taken Type allopurinol 300 mg tablet 300 mg PO DAILY 04/03/20 07/01/21 Unknown History aspirin 81 mg tablet 81 mg PO DAILY 04/03/20 07/01/21 Unknown History metoprolol tartrate 25 mg tablet 25 mg PO BID 04/03/20 07/01/21 Unknown History tamsulosin 0.4 mg capsule 0.4 mg PO BEDTIME 04/03/20 07/01/21 Unknown History trazodone 50 mg tablet 25 mg PO BEDTIME 04/03/20 07/01/21 Unknown History acetaminophen 500 mg tablet 500 mg PO Q8H PRN 07/01/21 07/01/21 Unknown History amlodipine 2.5 mg tablet 1 tab PO DAILY 07/01/21 07/01/21 Unknown History docusate sodium 100 mg capsule 1 cap PO BID 07/01/21 07/01/21 Unknown History insulin lispro 100 unit/mL See Rx Instructions .ROUTE .COMPLEX 07/01/21 07/01/21 Unknown History subcutaneous pen latanoprost 0.005 % eye drops 1 drp OPHTHALMIC (EYE) DAILY 07/01/21 07/01/21 Unknown History levothyroxine 75 mcg tablet 1 tab PO DAILY 07/01/21 07/01/21 Unknown History pantoprazole 40 mg tablet,delayed 1 tab PO DAILY 07/01/21 07/01/21 Unknown History release thiamine HCl (vitamin B1) 100 mg 1 tab PO DAILY 07/01/21 07/01/21 Unknown History tablet Physical Exam Vital Signs: Vital Signs: Last Vital Signs Temp 98.0 F 07/09/21 19:00 Pulse 115 H 07/09/21 20:51 Resp 30 H 07/09/21 20:51 BP 122/66 07/09/21 19:00 Pulse Ox 96 07/09/21 20:51 Oxygen Flow Rate 2 07/01/21 16:57 BMI result Body Mass Index 22.2 Results Labs CBC & Chem 7: 07/09/21 08:25 07/09/21 20:38 Labs: Short CBC 07/09/21 Range/Units 08:25 WBC 16.1 H (4.8-10.8) X10*3/uL Hgb 10.8 L (14.0-18.0) g/dl Hct 34.3 L (42.0-52.0) % Plt Count 311 (160-400) X10*3/uL BMP 07/09/21 07/09/21 07/09/21 08:25 08:25 20:38 Sodium 144 144 Potassium 5.0 5.0 Chloride 109 H 108 Carbon Dioxide 26 26 BUN 33 H 33 H Creatinine 0.91 0.87 0.99 Calcium 10.2 D 10.0 Microbiology Microbiology Results: Microbiology 07/07/21 11:43 Blood - Venous Blood Culture - Preliminary No growth after 48 hours. 07/07/21 11:45 Blood - Venous Blood Culture - Preliminary No growth after 48 hours. 07/01/21 17:28 Blood - Venous Blood Culture - Final Enterococcus faecalis Proteus mirabilis 07/01/21 17:24 Blood - Venous Blood Culture - Final Enterococcus faecalis Proteus mirabilis 07/01/21 Unknown Urine clean catch - Urine bass top Urine Culture - Final
--- NOTE | 2021-07-09 21:49 | PC.NURSE ---
Addendum entered by Oliva Roach RN 07/09/21 22:29: Dr. Tsai ordered to hold tube feedings for now. Feeding was running at 10ml/hr, now on hold. Original Note: Upon pt assessment, RR noticed to be 54, HR 120s, BP slightly elevated, 93% on RA. Dr. Tsai notified and at bedside. Pt nodded yes when asked if he was in any pain. STAT ABGs and CXR ordered, results came back and reviewed with Dr. Tsai. Respiratory at bedside, 2L NC applied. 1 mg morphine ordered, administered with Dr. Tsai at bedside. Pt RR now 30 s/p morphine. PA from ICU at bedside to evaluate and stated he talked to family about code status. Pt now DNR/DNI. No transfer at this time. Will continue to monitor.
--- NOTE | 2021-07-09 22:07 | PM.EVENT ---
Event Note Date of Service: 07/10/21 Event Note: I was asked to see this patient by the hospitalist to to concerns of respiratory distress, tachycardia and tachypnea, chart was reviewed in detail. I reported patient appeared to have work of breathing according to the nurse but he did not have his nasal cannula properly placed, had been slightly tachypneic, patient response to [facility] [place], follows my commands upon request. Denies chest pain or shortness of breath. There is no accessory muscle usage, patient was given morphine 1 mg IV x1 with good effect, the patient down and bring his respiratory rate down from the 30s to 16. His O2 sat on 2 L and 2nd eyes 96%. Prior to further evaluation and consideration of bring him to the ICU, I called the patient's daughter who is the healthcare proxy explain the current clinical scenario, different possibilities of treatment including the possibility of worsening leading to intubation without any guarantees that he will improve while on a vent. 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 I did explained all this to the patient's daughter Patient's that responded that this is something that they have been thinking about and they do not want the patient to suffer, they simply want medical treatment at this point without any invasive procedures and would like to further advance his code status from DNR only to a full DNR, DNI, no invasive procedures. This particular request was witnessed by my nurse Ligia. I have advised the patient's nurse on the floor to give the patient morphine as needed and discussed the case with Dr. Tsai. At this point the patient is not a candidate to go to the ICU, code status has been changed and medical management should proceed. Total time of this evaluation including discussion with family members is 20 minutes. Regular billing time, not Critical Care. Case was discussed with Dr. Hammond who is aware of all the above.
[2021-07-10] VITALS (17 sets, daily range): BP systolic 79–160; BP diastolic 32–72; PULSE 92–131; RESP 18–42; TEMP 36.3–39.4; O2SAT 90–99; BMI 18.4
[2021-07-10 00:09] LABS: ABG Refer to POC result
[2021-07-10] MEDS: Metoprolol Tartrate 50 MG TABLET PO ×2 (00:46→07:52)
[2021-07-10] MEDS: Morphine Sulfate 2 MG/ML CARTRIDGE 1 MG IVPUSH ×5 (00:54→19:42)
[2021-07-10] MEDS: 0.9 % Sodium Chloride Flush 3 ML SYRINGE IVFLUSH ×3 (08:02→19:46)
[2021-07-10 09:49] LABS: Creatinine Clr Calc Pharmacy 38.5; Estimated Glomerular Filt Rate > 60
[2021-07-10] MEDS: vancomycin HCL 1,000 MG in 0.9 % Sodium Chloride 250 ML 270 MG IV (13:34)
[2021-07-10] MEDS: Acetaminophen Supp 650 MG SUPP.RECT PR (13:35)
--- NOTE | 2021-07-10 13:36 | PC.NURSE ---
At 0700 patient had a temp of 100.7, MD notified. At 1000 rectal temp was 102.9, MD notified. Pt was given a tylenol suppository and ice packs. At 1300 rectal temp was 100.9, MD notified.
--- NOTE | 2021-07-10 15:17 | P.PNIM_ITS ---
Subjective Subjective Date of Service: 07/10/21 Review of Systems Follow up sepsis more tachypneic with fevers lethargic nonverbal Physical Exam Vital Signs: Vital Signs: Last Vital Signs Temp 98.1 F 07/10/21 15:05 Pulse 113 H 07/10/21 15:05 Resp 30 H 07/10/21 15:05 BP 123/62 07/10/21 15:05 Pulse Ox 99 07/10/21 15:05 Oxygen Flow Rate 2 07/01/21 16:57 BMI result Body Mass Index 18.4 Appearing in mild resp distress lung sounds are clear to auscultation heart regular rate rhythm, clear S1, S2 positive bowel sounds, abdomen is soft, nontender neuro patient is lethargic Objective Data Active Medications Acetaminophen (Acetaminophen Supp 650 Mg Supp.Rect) 650 mg AR Q6H PRN PRN Reason: Pain, Mild (Pain Scale 1-3) Last Admin: 07/10/21 13:35 Dose: 650 mg Documented by: NADYA Albuterol/Ipratropium (Albuterol/Iprat 2.5/0.5mg 3 Ml Ampul.Neb) 3 ml INHALE RQ4H PRN PRN Reason: Shortness of Breath/Wheezing Ceftriaxone Sodium 1 gm/ (Sodium Chloride) 50 mls @ 100 mls/hr IV Q24H [facility] Last Infusion: 07/09/21 16:20 Dose: 0 mls/hr Documented by: LEE Vancomycin HCl 1,000 mg/ (Sodium Chloride) 270 mls @ 270 mls/hr IV Q24H [facility] Last Infusion: 07/10/21 14:45 Dose: 0 mls/hr Documented by: NADYA Metoprolol Tartrate (Metoprolol Tartrate 50 Mg Tablet) 50 mg PO BID [facility]; Protocol Last Admin: 07/10/21 07:52 Dose: 50 mg Documented by: NADYA Morphine Sulfate (Morphine Sulfate 2 Mg/Ml Cartridge) 1 mg IVPUSH Q6H PRN; Protocol PRN Reason: Severe Pain/SOB Last Admin: 07/10/21 07:55 Dose: 1 mg Documented by: NADYA Ondansetron HCl (Ondansetron Hcl 4 Mg/2 Ml Vial) 4 mg IVPUSH Q8H PRN PRN Reason: Nausea and Vomiting Last Admin: 07/02/21 04:44 Dose: 4 mg Documented by: RD Pharmacy Consult (Consult Rx Perform Med Rec) 1 each MISCELLANE ONCE PRN PRN Reason: Consult order Pharmacy Consult (Consult Rx Perform Med Rec) 1 each MISCELLANE ONCE PRN PRN Reason: Consult order Sodium Chloride (0.9 % Sodium Chloride Flush 3 Ml Syringe) 3 ml IVFLUSH QSHIFT [facility] Last Admin: 07/10/21 08:02 Dose: 3 ml Documented by: NADYA Labs CBC & Chem 7: 07/09/21 08:25 07/10/21 09:01 Labs: Laboratory Results - last 24 hr 07/09/21 07/09/21 07/09/21 20:30 20:38 20:38 O2 Saturation 96.0 ABG pH at Pt Temp 7.51 H ABG pCO2 at Pt Temp 32 ABG pO2 at Pt Temp 78 L ABG HCO3 26 ABG Base Excess (Actual) 4.1 Anion Gap 15 Estim Creat Clear Calc 51.1 Estimated GFR > 60 Random Glucose 179 H Calcium 10.0 Magnesium 2.1 B-Natriuretic Peptide 1284 H 07/10/21 09:01 O2 Saturation ABG pH at Pt Temp ABG pCO2 at Pt Temp ABG pO2 at Pt Temp ABG HCO3 ABG Base Excess (Actual) Anion Gap Estim Creat Clear Calc 38.5 Estimated GFR > 60 Random Glucose Calcium Magnesium B-Natriuretic Peptide Microbiology Microbiology Results: Microbiology 07/07/21 11:43 Blood Culture - Preliminary Blood - Venous No growth after 48 hours. 07/07/21 11:45 Blood Culture - Preliminary Blood - Venous No growth after 48 hours. Assessment and Plan (1) Dementia: Status: Acute Plan 86-year-old male with past medical history of CVA, CAD who presents to the hospital found to have severe sepsis likely secondary to UTI Severe sepsis + Septic Shock Due to UTI(Due to chronic whitting[place]) causing Polymicrobial (Enterococcus + Proteus) bacteremia Repeat blood cx prelim negative Continue Rocephin / Vancomcyin for now -- plan for Zyvox + Ceftin total 21 upon d/c Fevers 07/10/21. up to 102.9 cooling blanket tylenol pr Check wound cx repeat blood cx covered with vanco and rocephin still tachypn, morphine helped probable aspiration event tube feeds held overnight will resume at lower rate already covered with vancomycin and zosyn NSVT 10 beats Due to electrolyte abnormalities + hold BB (which was done due to shock) BB restarted replete electro lytes as below Acute blood loss anemia due to hematuria from [place] hematuria resolved s/p 1 unit prbc h/h stable Moderate protein calorie malnutrition tube feeds follow nutrition recs Stage II coccyx wound wound care daily DNR/DNI DVT pptx, Mechanical due to acute blood loss anemia requiring transfusion Attending: Dr. Panda Quality Stroke Does the patient have a stroke diagnosis?: No VTE Prior VTE?: No VTE Risk Level:: Medical - moderate - high VTE Device Contraindication: Treatment Not Indicated VTE Drug Contraindication: N/A - Med Ordered
[2021-07-10] MEDS: cefTRIAXone sodium 1 GM in 0.9 % Sodium Chloride 50 ML IV (16:34)
[2021-07-10] MEDS: Metoprolol Tartrate 5 MG/5 ML VIAL 2.5 MG IVPUSH (19:24)
[2021-07-10] MEDS: 0.9 % Sodium Chloride 1,000 ML 100 ML IVCONT (19:46)
--- NOTE | 2021-07-10 21:57 | PM.EVENT ---
Event Note Date of Service: 07/10/21 Event Note: 9:50PM 07/10/21:- Hypotension: Patient blood pressure mental noted to be 79/32; patient legs elevated; giving gentle fluid bolus. Patient continued to be tachypneic and tachycardic since yesterday. I spoke to the patient's daughter Tonia extensively about the patient's current clinical condition, critical nature of the situation, treatment options. She has decided to keep the patient DNR/DNI yesterday. Today she mentioned that she wanted to give it a try with vasopressors if needed and see if he responds to the treatment like he did on presentation. Also mentioned that he does not show any progress she is inclined to keep him on comfort measures. I text paged Dr. Hammond from ICU evaluation-> pt was accepted to ICU.
[2021-07-10] MEDS: 0.9 % Sodium Chloride 250 ML 999 ML IV (22:09)
--- NOTE | 2021-07-10 23:18 | P.CONCC_ITS ---
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 ?Patient was initially admitted on 07/01/2021 due to increased lethargy pain confused when normal the patient is verbal and oriented to himself but when he got to the hospital he had previously verbalized he was feeling ill. ?It was reported he had some abdominal pain and vomiting such feeding tubes had been stopped. ?At the time the patient was found to be febrile at 01:04 0.2 heart rate 150, respirations 24, blood pressure 102/50 satting 87% [place] [address] H&H of 1137 respectively 9 BUN 29 creatinine 2.051 his baseline is around 1.1.? Lactic acid 8.2 and his urine was positive for leukocyte esterase as well as white blood cells.? COVID negative.? Chest x-ray was negative. Patient did have a CT of the abdomen which showed decubitus ulcers with soft tissue thickening in the left buttock just below the coccyx, bilateral nephrolithiasis without obstructive stone.? Some dependent pulmonary opacities which could represent atelectasis versus consolidation versus aspiration.? Pat ient was given IV fluids and antibiotics admitted for further management.? And patient had been DNR but family had requested to intubate him if this was necessary. Patient had been managed with medical treatment on the floors, infectious Disease had been consulted due to underlying bacteremia.? Patient has been receiving Rocephin and vancomycin. ?Last night the patient had deteriorated and his respiratory ability worsened, he became tachypneic and tachycardic for which morphine was given after discussion with family members they did decide to make him DNR DNI.? Patient was kept on the floor. Today we were informed that the patient's blood pressure was lower than usual despite of all of 1st even though did have a dose of morphine few hours prior to our involvement.? Family was offered vasopressors per the hospitalist but they were not aware that this medication is to be administered via a central line.? Despite of this with septic the patient into the ICU however clinically speaking he does not appear well, his having significant respiratory distress, nonresponsive, mouth breathing and with unstable vital signs. 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 ROS:? Unable to obtain Past Medical History:? As above Past Surgical History: ?CABG unknown amount of vessels Family history:? Noncontributory Social History:? Lives at home with her daughter, nonfunctional, nonambulatory.? Nonsmoker, no history of alcohol consumption. CODE STATUS: ?DNR DNI Allergies: NKDA Home Medications: See Med Rec PHYSICAL EXAM: VS: ?Blood pressure 76/50, heart rate 115, respirations 36, O2 sat 99% 2 L nasal cannula General:? Obtunded, mouth breathing, not following commands. Skin:? Multiple ulcers in the sacrococcygeal area of different states, 1 large 1, stage IV all over the sacrococcygeal area a round right medial heel aspect, at the scrotum shows stage 1-2 skin abrasions HEENT:? Head is normocephalic, atraumatic,Buccal mucosa is dry Cardiac:? Tachycardic 114 beats per minute.? No murmurs, rubs, gallops. Pulmonary:? Diminished lung sounds bilaterally with fine crackles at the bases and right rhonchi Abdomen:? Protuberant, positive bowel sounds in all 4 quadrants.? Soft, n ontender, no rebound or guarding.? Musculoskeletal:? Right-sided hemiparesis which is chronic in nature.? No cogwheeling noted on passive range of motion of all 4 extremities trace.? There is no edema, no leg asymmetry. Neurologic:? As above, as above, up done that, unable to further assess. Vascular:? 2+ pulses upper and lower extremities distally. SIGNIFICANT LABORATORY DATA:? As above, in addition the most recent laboratory showed a decreased white count, improved renal function and no electrolyte abnormality.? REVIEW OF IMAGES: ?As above ASSESSMENT AND PLAN: 1. Sepsis and septic shock due to urinary tract infection in the setting of indwelling Marino catheter and underlying Enterococcus bacteremia 2. Suspected microaspiration due to chronic G-tube feedings 3. Intermittent nonsustained V-tach 4. Marino catheter related hematuria status post packed red blood cells 5. Protein calorie malnutrition syndrome 6. Sacrococcygeal pressure ulcers, heel ulcers present on admission 7. Improving acute kidney injury due to volume depletion and hypoperfusion 8. Anemia of chronic disease 9. 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 Vasopressors were offered by Dr. Tsai (hospitalist) although the patient has only peripheral IV access, a splint the patient's healthcare proxy that this is not something that we usually do and that the patient likely needs a central line which she refused.? It seems to me that they are having a hard time coping with the current situation and we mentioned that a short trial of vasopressors will be done but without any promises as the patient is progressing and is appears to be poor. Even though the patient was placed on Levophed at 0.7 mcg, his blood pressure is barely 88/35, his mouth breathing of 42 breaths per minute with a heart rate of 112, clinically speaking the patient appears to be suffering and struggling to breathe.? 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 Will start morphine IV as needed for nonverbal cues of distress as well as Ativan as needed and if necessary atrophy versus scopolamine for secretions. 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 Critical care time used for critical evaluation of this patient, diagnosis, treatment and coordination of care, review her records and documentation TOTAL CRITICAL CARE TIME 120 MIN . Patient's care was discussed in detail with Dr. Hammond.? He is aware of all the above as well as the plan of care for this patient. [facility] Past Medical History Medical History BPH (benign prostatic hyperplasia) Coronary artery disease CVA (cerebral vascular accident) Dementia Diabetes Gout HTN (hypertension) Hypothyroidism Family History Family History Other No family history of coronary artery disease Family history: reviewed and not pertinent Surgical History Surgical History Hx of CABG Social History Social History Household Members: Unknown / Unable to assess Housing: Unknown / Unable to assess Do you presently have visiting nurse or other home services: No Unable to assess alcohol history related to: Unable to respond Alcohol intake: current Patient Tobacco Use Status: Never used Tobacco Advance Directives Date on File: 07/02/21 Current occupational status: disabled Meds Allergies Allergy/AdvReac Type Severity Reaction Status Date / Time No Known Allergies Allergy Mild NONE Verified 04/03/20 23:07 Active Medications: Current Medications Acetaminophen (Acetaminophen Supp 650 Mg Supp.Rect) 650 mg [place] Q6H PRN PRN Reason: Pain, Mild (Pain Scale 1-3) Last Admin: 07/10/21 13:35 Dose: 650 mg Documented by: Albuterol/Ipratropium (Albuterol/Iprat 2.5/0.5mg 3 Ml Ampul.Neb) 3 ml INHALE RQ4H PRN PRN Reason: Shortness of Breath/Wheezing Ceftriaxone Sodium 1 gm/ (Sodium Chloride) 50 mls @ 100 mls/hr IV Q24H [facility] Last Infusion: 07/10/21 17:09 Dose: Infused Documented by: Vancomycin HCl 1,000 mg/ (Sodium Chloride) 270 mls @ 270 mls/hr IV Q24H [facility] Last Infusion: 07/10/21 14:45 Dose: Infused Documented by: Sodium Chloride (Ns) 1,000 mls @ 100 mls/hr IVCONT .Q10H [facility] Last Admin: 07/10/21 19:46 Dose: 100 mls/hr Documented by: Norepinephrine Bitartrate (Levophed) 8 mg in 250 mls @ 0 mls/hr IVCONT .Q0M [facility]; Protocol Last Titration: 07/10/21 23:00 Dose: 0.07 mcg/kg/min, 7.22 mls/hr Documented by: Metoprolol Tartrate (Metoprolol Tartrate 50 Mg Tablet) 50 mg PO BID [facility]; Pro tocol Last Admin: 07/10/21 21:44 Dose: Not Given Documented by: Morphine Sulfate (Morphine Sulfate 2 Mg/Ml Cartridge) 1 mg IVPUSH Q6H PRN; Protocol PRN Reason: Severe Pain/SOB Last Admin: 07/10/21 19:42 Dose: 1 mg Documented by: Ondansetron HCl (Ondansetron Hcl 4 Mg/2 Ml Vial) 4 mg IVPUSH Q8H PRN PRN Reason: Nausea and Vomiting Last Admin: 07/02/21 04:44 Dose: 4 mg Documented by: Pharmacy Consult (Consult Rx Perform Med Rec) 1 each MISCELLANE ONCE PRN PRN Reason: Consult order Pharmacy Consult (Consult Rx Perform Med Rec) 1 each MISCELLANE ONCE PRN PRN Reason: Consult order Sodium Chloride (0.9 % Sodium Chloride Flush 3 Ml Syringe) 3 ml IVFLUSH QSHIFT [facility] Last Admin: 07/10/21 19:46 Dose: 3 ml Documented by: Home Medications Medication Instructions Recorded Confirmed Last Taken Type allopurinol 300 mg tablet 300 mg PO DAILY 04/03/20 07/01/21 Unknown History aspirin 81 mg tablet 81 mg PO DAILY 04/03/20 07/01/21 Unknown History metoprolol tartrate 25 mg tablet 25 mg PO BID 04/03/20 07/01/21 Unknown History tamsulosin 0.4 mg capsule 0.4 mg PO BEDTIME 04/03/20 07/01/21 Unknown History trazodone 50 mg tablet 25 mg PO BEDTIME 04/03/20 07/01/21 Unknown History acetaminophen 500 mg tablet 500 mg PO Q8H PRN 07/01/21 07/01/21 Unknown History amlodipine 2.5 mg tablet 1 tab PO DAILY 07/01/21 07/01/21 Unknown History docusate sodium 100 mg capsule 1 cap PO BID 07/01/21 07/01/21 Unknown History insulin lispro 100 unit/mL See Rx Instructions .ROUTE .COMPLEX 07/01/21 07/01/21 Unknown History subcutaneous pen latanoprost 0.005 % eye drops 1 drp OPHTHALMIC (EYE) DAILY 07/01/21 07/01/21 Unknown History levothyroxine 75 mcg tablet 1 tab PO DAILY 07/01/21 07/01/21 Unknown History pantoprazole 40 mg tablet,delayed 1 tab PO DAILY 07/01/21 07/01/21 Unknown History release thiamine HCl (vitamin B1) 100 mg 1 tab PO DAILY 07/01/21 07/01/21 Unknown History tablet Physical Exam Vital Signs: Vital Signs: Last Vital Signs Temp 98.7 F 07/10/21 21:42 Pulse 113 H 07/10/21 23:00 Resp 41 H 07/10/21 22:57 BP 87/35 L 07/10/21 23:00 Pulse Ox 90 L 07/10/21 22:57 Oxygen Flow Rate 2 07/01/21 16:57 BMI result Body Mass Index 18.4 Results Labs CBC & Chem 7: 07/09/21 08:25 07/10/21 09:01 Labs: BMP 07/10/21 09:01 Creatinine 1.09 Microbiology Microbiology Results: Microbiology 07/07/21 11:43 Blood - Venous Blood Culture - Preliminary No growth after 48 hours. 07/07/21 11:45 Blood - Venous Blood Culture - Preliminary No growth after 48 hours. 07/01/21 17:28 Blood - Venous Blood Culture - Final Enterococcus faecalis Proteus mirabilis 07/01/21 17:24 Blood - Venous Blood Culture - Final Enterococcus faecalis Proteus mirabilis 07/01/21 Unknown Urine clean catch - Urine bass top Urine Culture - Final
--- NOTE | 2021-07-11 00:10 | PC.NURSE ---
PT TO ICU AT 2245 UNRESPONSIVE AND IN RESP DISTRESS USING ACCESSORY MUSCLES WITH A RESP RATE OF 40/MIN. MONITOR SHOWS SINUS TACH, RATE 110'S. BP 91/34. STARTED ON LEVOPHED AT 0.05 MCG AND TITRATED UP TO 0.09 MCG. Jamarcus ROBLES AT BEDSIDE ON ARRIVAL TO UNIT AND EVALUATED PT. JAMARCUS CALLED FAMILY AND FAMILY CAME IN TO SEE PT. POSSIBLE COMFORT MEASURES ONLY. THE FAMILY WILL MAKE A DECISION.
[2021-07-11 00:35] VITALS: RESP 14
[2021-07-11] MEDS: Morphine Sulfate 2 MG/ML CARTRIDGE IVPUSH ×2 (00:35→01:02)
[2021-07-11] MEDS: LORazepam 2 MG/ML VIAL 0.5 MG IVPUSH (00:48)
[2021-07-11 01:02] VITALS: RESP 10
--- NOTE | 2021-07-11 01:27 | P.DS_ITS ---
DS: Providers Provider Date of Service: 07/11/21 Date of admission: 07/01/21 22:22 Date of discharge: 07/11/21 Primary care physician: Stevie Childers MD Admitting clinician: Kelly Barakat Attending physician on admission: Kelly Barakat Consults: 07/02/21 06:19 Consult to Urology Routine Consulting Provider: Sam Worrell Reason for consultation: urinary retention, blocked whittington, Has provider been notified: No 07/04/21 09:55 Consult to Infectious Diseases Routine Consulting Provider: April Ross Reason for consultation: multiorganism bacteremia Has provider been notified: No Attending physician on discharge: Christiano Hammond Discharging clinician: Dario Lynch DS: Diagnosis Discharge Diagnosis (1) Dementia: Status: Acute DS: Summary Hospital Course Hospital Course: Admission/discharge diagnosis 1. Multi organ failure / ?Sepsis and septic shock due to urinary tract infection in the setting of indwelling Whittington catheter and underlying Enterococcus bacteremia 2. Suspected microaspiration due to chronic G-tube feedings 3. Intermittent nonsustained V-tach 4. Whittington catheter related hematuria status post packed red blood cells 5. Protein calorie malnutrition syndrome 6. Sacrococcygeal pressure ulcers, heel ulcers present on admission 7. Improving acute kidney injury due to volume depletion and hypoperfusion 8. Anemia of chronic disease 9. 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 ?Patient was initially admitted on 07/01/2021 due to increased lethargy pain confused when normal the patient is verbal and oriented to himself but when he got to the hospital he had previously verbalized he was feeling ill. ?It was reported he had some abdominal pain and vomiting such feeding tubes had been stopped. ?At the time the patient was found to be febrile at 01:04 0.2 heart rate 150, respirations 24, blood pressure 102/50 satting 87% [place] a [place] [address] H&H of 1137 respectively 9 BUN 29 creatinine 2.051 his baseline is around 1.1.? Lactic acid 8.2 and his urine was positive for leukocyte esterase as well as white blood cells.? COVID negative.? Chest x-ray was negative. Patient did have a CT of the abdomen which showed decubitus ulcers with soft tissue thickening in the left buttock just below the coccyx, bilateral nephrolithiasis without obstructive stone.? Some dependent pulmonary opacities which could represent atelectasis versus consolidation versus aspiration.? Patient was given IV fluids and antibiotics admitted for further management.? And patient had been DNR but family had requested to intubate him if this was necessary. Patient had been managed with medical treatment on the floors, infectious Disease had been consulted due to underlying bacteremia.? Patient has been receiving Rocephin and vancomycin. ?Last night the patient had deteriorated and his respiratory ability worsened, he became tachypneic and tachycardic for which morphine was given after discussion with family members they did decide to make him DNR DNI.? Patient was kept on the floor. Today we were informed that the patient's blood pressure was lower than usual despite of all of 1st even though did have a dose of morphine few hours prior to our involvement.? Family was offered vasopressors per the hospitalist but they were not aware that this medication is to be administered via a central line.? Despite of this with septic the patient into the ICU however clinically speaking he does not appear well, his having significant respiratory distress, nonresponsive, mouth breathing and with unstable vital signs. 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 At this point the patient was transferred to the ICU, lengthy discussion with the family to place over the phone about the patient's current status which includes do not resuscitate and do not intubate, no invasive procedures.? Vasopressors were offered by Dr. Tsai (hospitalist) although the patient has only peripheral IV access, a splint the patient's healthcare proxy that this is not something that we usually do and that the patient likely needs a central line which she refused.? It seems to me that they are having a hard time coping with the current situation and we mentioned that a short trial of vasopressors will be done but without any promises as the patient is progressing and is appears to be poor. Even though the patient was placed on Levophed at 0.7 mcg, his blood pressure is barely 88/35, his mouth breathing of 42 breaths per minute with a heart rate of 112, clinically speaking the patient appears to be suffering and struggling to breathe.? At this point I have asked the family members to come into the hospital so they can see the current clinical scenario and discussed the possibility of making this patient SENIOR STORAGE ADMINISTRATOR rather than continuing with a force treatment on a unfortunate gentleman ?not only is malnourished, has significant ulcers, G-tube and overall a poor quality of life and poor prognosis. 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 Will start morphine IV as needed for nonverbal cues of distress as well as Ativan as needed and if necessary atrophy versus scopolamine for secretions. 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 Patient at : 0109 on 07/11/2021 patient became completely apneic, asystole on the monitor, there was no palpable pulse, no apical heart rate, corneal reflex is absent and pupils are fixed and dilated.? Patient was pronounced by me. FAMILY MEMBERS WERE SEEN ON THE HOSPITAL AND THEY WERE INFORMED ABOUT IT. Time Spent with Patient Time attestation: Total time spent providing and/or coordinating discharge services: Discharge coordination time: Greater than 30 minutes Quality: Stroke Does the patient have a stroke diagnosis?: No Physical Exam Vital Signs: Vital Signs: Last Vital Signs Temp 98.7 F 07/10/21 21:42 Pulse 112 H 07/10/21 23:53 Resp 10 L 07/11/21 01:02 BP 88/35 L 07/10/21 23:53 Pulse Ox 98 07/10/21 23:53 Oxygen Flow Rate 2 07/01/21 16:57 BMI result Body Mass Index 18.4 DS: Data Data Completed and Pending Labs on day of discharge: Laboratory Results - last 24 hr 07/10/21 09:01 Creatinine 1.09 Estim Creat Clear Calc 38.5 Estimated GFR > 60 Preliminary micro results at discharge 07/07/21 11:43 Blood Culture - Preliminary Blood - Venous No growth after 48 hours. 07/07/21 11:45 Blood Culture - Preliminary Blood - Venous No growth after 48 hours. Discharge Plan Discharge Date/Time: 07/11/21 01:09 Patient Disposition: Referrals: Name,MD Stevie [Primary Care Provider] - 1 Week Discharge Medications: No Action trazodone 50 mg Tablet 25 mg PO BEDTIME 0RF tamsulosin 0.4 mg Capsule 0.4 mg PO BEDTIME 0RF allopurinol 300 mg Tablet 300 mg PO DAILY 0RF aspirin 81 mg Tablet 81 mg PO DAILY 0RF metoprolol tartrate 25 mg Tablet 25 mg PO BID 0RF latanoprost 0.005 % drops 1 drp ophthalmic (eye) DAILY 0RF thiamine HCl (vitamin B1) 100 mg tablet 1 tab PO DAILY 0RF amlodipine 2.5 mg tablet 1 tab PO DAILY 0RF acetaminophen 500 mg tablet 500 mg PO Q8H PRN (Reason: Pain) 0RF levothyroxine 75 mcg tablet 1 tab PO DAILY 0RF pantoprazole 40 mg tablet,delayed release (DR/EC) 1 tab PO DAILY 0RF docusate sodium 100 mg capsule 1 cap PO BID 0RF insulin lispro 100 unit/mL insulin pen See Rx Instructions .ROUTE .COMPLEX 0RF Rx Instructions: USE DIRECTED PER SLIDING SCALE Q8H PRN 150-199 2 UNITS 200-249 4 UNITS 250-299 6 UNITS 300-349 8 UNITS 350-399 10 UNITS CALL MD IF >400 OR <70 Discharge Orders: Discharge Order (Routine); Ordered 07/11/21 Ordered By: Dario Lynch
--- NOTE | 2021-07-11 01:33 | PC.NURSE ---
FAMILY DECIDED TO WITHDRAW CARE AND TO MAKE PT COMFORT MEASURES ONLY. PT RECEIVED MORPHINE IV AND ATIVAN SUBLINGUAL. LEVOPHED DRIP SHUT OFF. RESPIRATIONS SLOWED AND THEN CEASED. NO PALPABLE OR AUDIBLE PULSE NOTED. JAMARCUS OLSEN PAC AT BEDSIDE AND PRONOUNCED PT AT 0109. FAMILY AT BEDSIDE. [employer] VICE PRESIDENT NOTIFIED. NEDS NOTIFIED AND CASE DECLINED.
--- NOTE | 2021-07-11 02:10 | PC.NURSE ---
POST MORTEM CARE GIVEN. BODY TO CB.
== END 2021-07-11 02:10 | disposition expired | DRG 698 ==
LOC: HO.ED 17:36 → HO.EDOVER 22:50 → HO.ICU 07-02 16:27 → HO.IMC 07-05 14:32 → HO.ICU 07-10 22:24
PROVIDERS: Anesthesiology; Family Medicine; Hospitalist; Internal Medicine Pulmonary Disease; Physician Assistant Medical; Admitting Provider Internal Medicine; Emergency Provider Emergency Medicine Emergency Medical Services; PCP Internal Medicine Geriatric Medicine; Visit Provider Nurse Practitioner Acute Care
DX: T83.511A Infection and inflammatory reaction due to indwelling urethral catheter, initial encounter (principal); L89.153 Pressure ulcer of sacral region, stage 3; A41.81 Sepsis due to Enterococcus; R65.21 Severe sepsis with septic shock; N17.0 Acute kidney failure with tubular necrosis; E87.2 Acidosis; E44.0 Moderate protein-calorie malnutrition; Z68.1 Body mass index [BMI] 19.9 or less, adult; I47.1 Supraventricular tachycardia; D62 Acute posthemorrhagic anemia; E87.1 Hypo-osmolality and hyponatremia; I69.851 Hemiplegia and hemiparesis following other cerebrovascular disease affecting right dominant side; N39.0 Urinary tract infection, site not specified; F03.90 Unspecified dementia, unspecified severity, without behavioral disturbance, psychotic disturbance, mood disturbance, and anxiety; E87.5 Hyperkalemia; I25.10 Atherosclerotic heart disease of native coronary artery without angina pectoris; E83.42 Hypomagnesemia; I11.0 Hypertensive heart disease with heart failure; I50.9 Heart failure, unspecified; D63.8 Anemia in other chronic diseases classified elsewhere; T83.83XA Hemorrhage due to genitourinary prosthetic devices, implants and grafts, initial encounter; Z93.1 Gastrostomy status; Z74.01 Bed confinement status; Z95.1 Presence of aortocoronary bypass graft; Z20.822 Contact with and (suspected) exposure to COVID-19; Z79.82 Long term (current) use of aspirin; Z79.890 Hormone replacement therapy; Z79.899 Other long term (current) drug therapy; Z66 Do not resuscitate
CPT/HCPCS: 0241U; 36415; 36600; 70450; 71045; 73620; 74176; 80048; 80076; 80202; 81001; 82040; 82565; 82803; 83605; 83735; 83880; 84100; 84295; 85007; 85025; 85027; 86850; 86900; 86901; 86923; 87040; 87071; 87077; 87086; 87186; 87205; 87635; 93005; 96361; 96365; 96367; 99282; 99285; 99291; J0696; J2060; J2270; J2405; J2543; J3370; J3475; P9016; P9047